=== PATIENT | female | born 1940 | race Caucasian/White ===

== ENCOUNTER → 2017-03-12 12:03 | Outpatient (CLI) | payer MEDICARE, OTHER, SELFPAY ==
[2017-02-28 09:26] VITALS: BP 134/62; BMI 39.4
--- NOTE | 2017-03-12 12:07 | RAD_ITS ---
STUDY: X-RAY CHEST REASON FOR EXAM: Female, 77 years old. Cough. TECHNIQUE: PA and lateral views of the chest. COMPARISON: August 04, 2016. FINDINGS: The lungs are underexpanded. There is interstitial thickening visible in both lungs. There is no demonstrated pleural abnormality. There is borderline cardiomegaly. There are calcified mediastinal and hilar lymph nodes. There is prominence of the pulmonary hilar arteries without peripheral pulmonary vascular congestion. There is atherosclerotic calcification of the aortic arch with tortuosity. There is demineralization of the osseous structures. There is increased thoracic kyphosis and mild curvature of the thoracic spine with convexity towards the right. Normal visualized ribs, clavicles, and shoulders. There is no demonstrated abnormality of the visualized soft tissue structures of the upper abdomen. RAD/Chest PA and Lateral IMPRESSION: No radiographic evidence of acute cardiopulmonary disease. Electronically Signed: Sun Matthews MD at 19:45 EST , Service support ,
== END ==
PROVIDERS: Family Provider Family Medicine; PCP Family Medicine; Visit Provider Family Medicine
DX: R05 Cough (principal)
CPT/HCPCS: 71046

== ENCOUNTER → 2017-04-12 11:35 | Outpatient (CLI) | payer MEDICARE, OTHER, SELFPAY ==
[2017-04-12 15:35] LABS: Absolute Lymphocyte Count 1.04 X10^3/ul (0.83-4.51); Basophil# 0.03 X10^3/uL; Basophil% 0.5 % (0-1); Eosinophils% 1.7 % (0-5); Hemoglobin 12.7 g/dl (12.0-15.0); Lymphocyte # 1.04 X10^3/ul (4.0); Lymphocyte % 17.4 % (19-41); Mean Corp Hgb Conc 31.8 g/gl (32-36); Mean Corpuscular Volume 91.3 fL (81-99); Mean Platelet Vol. 10.3 fl (6.2-12.0); Monocyte# 0.76 X10^3/uL; Monocyte% 12.8 % (0-10); Neutrophil # 4.02 X10^3/uL (2.7-7.7); Neutrophil % 67.4 % (47-70); Platelet Count 285 K/mm3 (150-450); RBC Distribution Width CV 14.7 % (11.6-14.6); Red Blood Count 4.38 M/mm3 (4.2-5.4)
[2017-04-12 15:37] LABS: POSITIVE COUNT NO; POSITIVE DIFFERENTIAL NO; POSITIVE MORPHOLOGY NO
[2017-04-12 16:06] LABS: Anion Gap 9 (5-15); BUN 18 mg/dL (7-18); BUN/Creat Ratio 23.9 RATIO (10-20); Chloride 105 mmol/L (98-107); Creatinine, Serum 0.75 mg/dL (0.55-1.02); EST Glomerular Filtration Rate 79 mL/min (>60); Est Glom Filt Rate - Afr Amer 96 mL/min (>60); Glucose 95 mg/dL (74-106); Potassium 3.9 mmol/L (3.5-5.1); Sodium Level 141 mmol/L (136-145); T4 Free Direct 1.28 ng/dL (0.76-1.46); Thyroid Stim Hormone (TSH) 1.93 uIU/mL (0.358-3.74)
== END ==
PROVIDERS: Family Provider Family Medicine; PCP Family Medicine; Visit Provider Family Medicine
DX: R53.83 Other fatigue (principal); E03.9 Hypothyroidism, unspecified; R60.9 Edema, unspecified
CPT/HCPCS: 36415; 80048; 84439; 84443; 85025

== ENCOUNTER → 2017-05-13 10:07 | Outpatient (CLI) | payer MEDICARE, OTHER, SELFPAY ==
[2017-05-13 12:10] LABS: Absolute Lymphocyte Count 1.23 X10^3/ul (0.83-4.51); Absolute Neutrophil Count 5.1 X10^3/uL (2.0-7.7); Basophil# 0.02 X10^3/uL; Basophil% 0.3 % (0-1); Eosinophils% 1.4 % (0-5); Hematocrit 39.7 % (37-47); Hemoglobin 12.5 g/dl (12.0-15.0); Lymphocyte # 1.23 X10^3/ul (4.0); Mean Corp Hgb Conc 31.5 g/gl (32-36); Mean Corpuscular Hgb 28.8 pg (27.0-32.0); Mean Corpuscular Volume 91.5 fL (81-99); Monocyte# 0.79 X10^3/uL; Monocyte% 10.9 % (0-10); Neutrophil # 5.05 X10^3/uL (2.7-7.7); Platelet Count 286 K/mm3 (150-450); RBC Distribution Width CV 14.3 % (11.6-14.6); Red Blood Count 4.34 M/mm3 (4.2-5.4); White Blood Count 7.2 K/mm3 (4.4-11.0)
[2017-05-13 12:16] LABS: POSITIVE COUNT NO; POSITIVE DIFFERENTIAL NO; POSITIVE MORPHOLOGY NO
[2017-05-13 12:36] LABS: ALB/GLOB Ratio 0.8 RATIO (0.9-2.4); AST(SGOT) 21 U/L (15-37); Alanine Aminotransfer ALT/SGPT 25 U/L (13-56); Albumin, Serum 3.1 g/dL (3.2-5.0); Alkaline Phosphatase 70 U/L (45-117); Anion Gap 8 (5-15); BUN 18 mg/dL (7-18); BUN/Creat Ratio 25.1 RATIO (10-20); Calcium,Total 7.9 mg/dL (8.5-10.1); Chloride 111 mmol/L (98-107); Creatinine, Serum 0.72 mg/dL (0.55-1.02); EST Glomerular Filtration Rate 84 mL/min (>60); Est Glom Filt Rate - Afr Amer 101 mL/min (>60); Globulin 4.1 g/dL (2.2-4.2); Glucose 97 mg/dL (74-106); Potassium 3.9 mmol/L (3.5-5.1); Protein, Total 7.2 g/dL (6.4-8.2); Sodium Level 147 mmol/L (136-145)
== END ==
PROVIDERS: Family Provider Family Medicine; PCP Family Medicine; Visit Provider Internal Medicine Rheumatology
DX: L40.59 Other psoriatic arthropathy (principal); L40.8 Other psoriasis; M79.7 Fibromyalgia; M17.0 Bilateral primary osteoarthritis of knee; M18.11 Unilateral primary osteoarthritis of first carpometacarpal joint, right hand; M47.897 Other spondylosis, lumbosacral region; M47.892 Other spondylosis, cervical region; M81.0 Age-related osteoporosis without current pathological fracture; G47.33 Obstructive sleep apnea (adult) (pediatric); Z79.899 Other long term (current) drug therapy
CPT/HCPCS: 36415; 80053; 85025

== ENCOUNTER → 2017-06-15 11:55 | Outpatient (CLI) | payer MEDICARE, OTHER, SELFPAY ==
[2017-06-15 12:00] VITALS: PULSE 60; PULSE 66; PULSE 68; PULSE 77; PULSE 95; PULSE 97; PULSE 98; PULSE 99; O2SAT 94; O2SAT 95; O2SAT 96; O2SAT 98; O2SAT 99
--- NOTE | 2017-06-17 08:19 | WT_ITS ---
PSN 6 Minute Walk Test - 6 Minute Walk Test 6 Minute Walk Test: 6 Minute Walk Test PSN:6-Minute Walk Test Start: 06/15/17 12: 20 Freq: Status: Active Protocol: [id number] Document 06/15/17 12:00 HG (Rec: 06/15/17 12:22 HG [id number]) 6 Minute Walk Test Date Performed 06/15/17 Time Performed 12:00 Height 5 ft Weight: 195 lb Weight in Pounds 195.[address]: Adamaris King Assistive device used: None Pre-test Oxygen Delivery Method Room Air Pulse Ox (%) 98 Pulse Rate (60-100 beats/min) 66 Dyspnea Jonh Scale (0-10) 1 Exertion Jonh Scale (6-20) 6 1st minute Oxygen Delivery Method Room Air Pulse Ox (%) 96 Pulse Rate (60-100 beats/min) 60 2nd minute Oxygen Delivery Method Room Air Pulse Ox (%) 95 Pulse Rate (60-100 beats/min) 98 3rd minute Oxygen Delivery Method Room Air Pulse Ox (%) 94 Pulse Rate (60-100 beats/min) 77 4th minute Oxygen Delivery Method Room Air Pulse Ox (%) 96 Pulse Rate (60-100 beats/min) 99 5th minute Oxygen Delivery Method Room Air Pulse Ox (%) 95 Pulse Rate (60-100 beats/min) 95 6th minute Oxygen Delivery Method Room Air Pulse Ox (%) 95 Pulse Rate (60-100 beats/min) 97 Post-test Oxygen Delivery Method Room Air Pulse Ox (%) 99 Pulse Rate (60-100 beats/min) 68 Dyspnea Jonh Scale (0-10) 2 Exertion Jonh Scale (6-20) 8 Full Laps Walked 15 Partial Lap, Number of Tiles Walked 0 Total Distance Walked (ft) 885 - Interpretation Interpretation: The patient ambulated 885 feet over the course of 6 minutes beginning on room air without assistive devices or breaks. Pretesting oxygen saturation was noted be 98% on room air. With ambulation, the facundo oxygen saturation was 94% . This represents a significant exertional oxygen desaturation. - Recommendations Recommendations: There is no indication for the use of supplemental oxygen at this time. However , close interval follow-up is recommended, given the degree of oxygen desaturation noted during this study.
== END ==
PROVIDERS: Family Provider Family Medicine; PCP Family Medicine; Visit Provider Nurse Practitioner Acute Care
DX: R94.2 Abnormal results of pulmonary function studies (principal)
CPT/HCPCS: 94618

== ENCOUNTER → 2017-06-25 07:33 | Outpatient (CLI) | payer MEDICARE, OTHER, SELFPAY ==
--- NOTE | 2017-06-25 14:38 | PFTCOMP ---
COMPLETE PULMONARY FUNCTION TEST INTERPRETATION Brief HPI: Patient is a 77 year old female, currently under the care of Dr. Montes, who presents to [facility] for complete pulmonary function tests secondary to diagnosis of abnormal PFT. Respiratory therapist reports good effort and reproducible results. Interpretation: Forced expiration spirometry shows no large airways obstructive ventilatory defect with an FEV1 of 116% predicted. There is no significant bronchodilator response by ATS criteria. Spirograms are of good quality and plateau normally. The respiratory flow volume loop shows a normal pattern. Lung volumes by body plethysmography show a normal total lung capacity at 3.62 L, 91% predicted. All other lung volumes are within normal limits. Diffusion capacity by carbon monoxide is normal at 78% predicted. The airway resistance is normal. Compared to previous pulmonary function tests from 02/28/2016, there has been a significant improvement in FEV1 and DLCO. Impression: These pulmonary function tests are grossly within normal limits and show normalization compared to previous study.
--- NOTE | 2017-06-25 14:41 | PFTCOMP_ITS ---
COMPLETE PULMONARY FUNCTION TEST INTERPRETATION Brief HPI: Patient is a 77 year old female, currently under the care of Dr. Montes , who presents to [facility] for complete pulmonary function tests secondary to diagnosis of abnormal PFT. Respiratory therapist reports good effort and reproducible results. Interpretation: Forced expiration spirometry shows no large airways obstructive ventilatory defect with an FEV1 of 116% predicted. There is no significant bronchodilator response by ATS criteria. Spirograms are of good quality and plateau normally. The respiratory flow volume loop shows a normal pattern. Lung volumes by body plethysmography show a normal total lung capacity at 3.62 L , 91% predicted. All other lung volumes are within normal limits. Diffusion capacity by carbon monoxide is normal at 78% predicted. The airway resistance is normal. Compared to previous pulmonary function tests from 02/28/2016, there has been a significant improvement in FEV1 and DLCO. Impression: These pulmonary function tests are grossly within normal limits and show normalization compared to previous study.
== END ==
PROVIDERS: Family Provider Family Medicine; PCP Family Medicine; Visit Provider Nurse Practitioner Acute Care
DX: R94.2 Abnormal results of pulmonary function studies (principal)
CPT/HCPCS: 94060; 94726; 94729

== ENCOUNTER → 2017-07-06 15:21 | Outpatient (CLI) | payer MEDICARE, OTHER, SELFPAY ==
--- NOTE | 2017-07-06 15:25 | VDLE_ITS ---
Reason For Study: edema RIGHT GSV is normal. CFV is compressible, spontaneous, phasic, competent and demonstrates normal augmentation. FV is compressible, spontaneous, phasic, competent and demonstrates normal augmentation. POP V is compressible, spontaneous, phasic, competent and demonstrates normal augmentation. T/P Trunk is compressible. PTV is compressible. RT PerV is compressible. Interpretation Summary Deep veins of the right lower extremity are patent and compressible segmentally. There is no evidence of right lower extremity deep vein thrombosis. Valvular competence appears intact within the proximal deep venous system on the right . The right greater saphenous vein appears patent and compressible segmentally. Ordering Physician: Jarred Portillo Performed By: Rayshawn Prater RVT
== END ==
PROVIDERS: Family Provider Family Medicine; PCP Family Medicine; Visit Provider Family Medicine
DX: R60.0 Localized edema (principal)
CPT/HCPCS: 93971

== ENCOUNTER → 2017-08-02 09:47 | Outpatient (CLI) | payer MEDICARE, OTHER, SELFPAY ==
[2017-08-02 12:07] LABS: Absolute Lymphocyte Count 1.36 X10^3/ul (0.83-4.51); Absolute Neutrophil Count 3.5 X10^3/uL (2.0-7.7); Basophil# 0.02 X10^3/uL; Basophil% 0.3 % (0-1); Eosinophil# 0.11 X10^3/uL; Eosinophils% 1.9 % (0-5); Hematocrit 41.3 % (37-47); Hemoglobin 12.8 g/dl (12.0-15.0); Lymphocyte # 1.36 X10^3/ul (4.0); Lymphocyte % 23.4 % (19-41); Mean Corpuscular Hgb 27.6 pg (27.0-32.0); Mean Corpuscular Volume 89.2 fL (81-99); Mean Platelet Vol. 9.7 fl (6.2-12.0); Monocyte# 0.81 X10^3/uL; Monocyte% 13.9 % (0-10); Neutrophil % 60.3 % (47-70); Platelet Count 289 K/mm3 (150-450); RBC Distribution Width CV 13.7 % (11.6-14.6); RBC Distribution Width SD 44.8 fl (35.1-43.9); Red Blood Count 4.63 M/mm3 (4.2-5.4); White Blood Count 5.8 K/mm3 (4.4-11.0)
[2017-08-02 12:13] LABS: POSITIVE COUNT NO; POSITIVE DIFFERENTIAL NO; POSITIVE MORPHOLOGY NO
[2017-08-02 12:36] LABS: ALB/GLOB Ratio 0.9 RATIO (0.9-2.4); AST(SGOT) 22 U/L (15-37); Alanine Aminotransfer ALT/SGPT 27 U/L (13-56); Albumin, Serum 3.3 g/dL (3.2-5.0); Alkaline Phosphatase 68 U/L (45-117); Anion Gap 8 (5-15); BUN 19 mg/dL (7-18); Calcium,Total 8.4 mg/dL (8.5-10.1); Chloride 108 mmol/L (98-107); Creatinine, Serum 0.76 mg/dL (0.55-1.02); EST Glomerular Filtration Rate 78 mL/min (>60); Est Glom Filt Rate - Afr Amer 95 mL/min (>60); Globulin 3.8 g/dL (2.2-4.2); Glucose 95 mg/dL (74-106); Potassium 4.1 mmol/L (3.5-5.1); Protein, Total 7.1 g/dL (6.4-8.2); Sodium Level 143 mmol/L (136-145)
== END ==
PROVIDERS: Family Provider Family Medicine; PCP Family Medicine; Visit Provider Internal Medicine Rheumatology
DX: L40.59 Other psoriatic arthropathy (principal); Z79.899 Other long term (current) drug therapy; L40.8 Other psoriasis; M79.7 Fibromyalgia; M17.0 Bilateral primary osteoarthritis of knee; M18.11 Unilateral primary osteoarthritis of first carpometacarpal joint, right hand; M47.897 Other spondylosis, lumbosacral region; M47.892 Other spondylosis, cervical region; M81.0 Age-related osteoporosis without current pathological fracture; G47.33 Obstructive sleep apnea (adult) (pediatric)
CPT/HCPCS: 36415; 80053; 85025

== ENCOUNTER → 2018-03-18 11:42 | Outpatient (CLI) | payer MEDICARE, OTHER, SELFPAY ==
[2018-03-16 09:46] VITALS: BMI 37.3
--- NOTE | 2018-03-18 11:47 | BI_ITS ---
MAMMOGRAPHY - BILATERAL SCREENING REASON FOR EXAM: Female, 78 years old. Routine annual screening examination. PERTINENT HISTORY: Non-contributory. Remote right excisional breast biopsy. TECHNIQUE: Digital bilateral breast emily (3D mammographic acquisition) in the CC and MLO projections. 2-D mediolateral oblique (MLO) and craniocaudad (CC) views of both breasts were obtained. CAD: Full Field Digital Mammography with Computer Added Detection was performed. COMPARISON: Comparison is made with prior study dated December 24, 2016 and November 11, 2015. FINDINGS: Breast Composition: There are scattered areas of fibroglandular density. There are no dominant masses or suspicious calcifications. Once again, there is asymmetry of breast tissue with more breast tissue is seen in the retroareolar region of the right breast as compared to the left side. No other significant abnormalities are identified. There has been no significant change since the prior study. BI/SCREENING MAMM (CAD), BILAT IMPRESSION: Stable bilateral screening mammogram. Yearly follow-up mammogram recommended. (A) ASSESSMENT CATEGORY: BIRADS Category 2: Benign. A letter regarding these results will be sent to the patient by the facility within 30 days. Approximately 10% of breast cancers are not detected by mammography. A normal mammogram should not delay biopsy of a clinically suspicious abnormality. [id number] Electronically Signed: Charly Booker MD at 14:26 EST , Service support ,
== END ==
PROVIDERS: Family Provider Family Medicine; PCP Family Medicine; Referring Provider Family Medicine; Visit Provider Family Medicine
DX: Z12.31 Encounter for screening mammogram for malignant neoplasm of breast (principal)
CPT/HCPCS: 77063; 77067

== ENCOUNTER → 2018-06-01 | Outpatient (CLI) | payer MEDICARE, OTHER, SELFPAY ==
[2018-03-16 09:46] VITALS: BMI 37.3
[2018-06-01 12:35] LABS: Absolute Lymphocyte Count 0.96 X10^3/ul (0.83-4.51); Absolute Neutrophil Count 3.3 X10^3/uL (2.0-7.7); Basophil# 0.02 X10^3/uL; Basophil% 0.4 % (0-1); Eosinophil# 0.07 X10^3/uL; Eosinophils% 1.4 % (0-5); Hematocrit 41.2 % (37-47); Hemoglobin 13.2 g/dl (12.0-15.0); Lymphocyte # 0.96 X10^3/ul (4.0); Lymphocyte % 19.4 % (19-41); Mean Corpuscular Hgb 28.5 pg (27.0-32.0); Mean Platelet Vol. 9.9 fl (6.2-12.0); Monocyte# 0.57 X10^3/uL; Monocyte% 11.5 % (0-10); Neutrophil # 3.33 X10^3/uL (2.7-7.7); Neutrophil % 67.1 % (47-70); Platelet Count 284 K/mm3 (150-450); RBC Distribution Width CV 13.7 % (11.6-14.6); RBC Distribution Width SD 44.5 fl (35.1-43.9); Red Blood Count 4.63 M/mm3 (4.2-5.4)
[2018-06-01 12:36] LABS: POSITIVE COUNT NO; POSITIVE DIFFERENTIAL NO; POSITIVE MORPHOLOGY NO
[2018-06-01 12:42] LABS: ALB/GLOB Ratio 0.9 RATIO (0.9-2.4); AST(SGOT) 23 U/L (15-37); Alanine Aminotransfer ALT/SGPT 26 U/L (13-56); Albumin, Serum 3.3 g/dL (3.2-5.0); Alkaline Phosphatase 60 U/L (45-117); Anion Gap 6 (5-15); BUN 19 mg/dL (7-18); Calcium,Total 8.5 mg/dL (8.5-10.1); Chloride 109 mmol/L (98-107); Cholesterol 187 mg/dL (200); Creatinine, Serum 0.86 mg/dL (0.55-1.02); EST Glomerular Filtration Rate 68 mL/min (>60); Est Glom Filt Rate - Afr Amer 82 mL/min (>60); Globulin 3.6 g/dL (2.2-4.2); Glucose 92 mg/dL (74-106); High Density Lipoprotein 73 mg/dL; Protein, Total 6.9 g/dL (6.4-8.2); Sodium Level 143 mmol/L (136-145); Thyroid Stim Hormone (TSH) 2.28 uIU/mL (0.358-3.74); Triglycerides 75 mg/dL; Very Low Density Lipoprotein 15 mg/dL (5-40)
== END | disposition home or self-care (01) ==
LOC: BFHLAB 10:14
PROVIDERS: Family Provider Family Medicine; PCP Family Medicine; Visit Provider Internal Medicine Cardiovascular Disease
DX: I10 Essential (primary) hypertension (principal); E55.9 Vitamin D deficiency, unspecified; E03.9 Hypothyroidism, unspecified
CPT/HCPCS: 36415; 80053; 80061; 82306; 84443; 85025

== ENCOUNTER → 2018-12-07 10:22 | Outpatient (CLI) | payer MEDICARE, OTHER, SELFPAY ==
[2018-09-14 09:30] VITALS: BMI 38.8
[2018-10-31 10:29] VITALS: BMI 37.9
[2018-12-07 12:31] LABS: Absolute Lymphocyte Count 1.11 X10^3/uL (0.83-4.51); Absolute Neutrophil Count 4.1 X10^3/uL (2.0-7.7); Basophil# 0.04 X10^3/uL; Basophil% 0.7 % (0-1); Eosinophil# 0.13 X10^3/uL; Eosinophils% 2.1 % (0-5); Hematocrit 41.2 % (37-47); Hemoglobin 12.9 g/dL (12.0-15.0); Lymphocyte # 1.11 X10^3/ul (4.0); Mean Corp Hgb Conc 31.3 g/dL (32-36); Mean Corpuscular Hgb 28.7 pg (27.0-32.0); Mean Corpuscular Volume 91.8 fL (81-99); Mean Platelet Vol. 10.2 fl (6.2-12.0); Monocyte# 0.71 X10^3/uL; Monocyte% 11.5 % (0-10); NRBC Flagged by Analyzer 0 % (0-5); Neutrophil # 4.14 X10^3/uL (2.7-7.7); Neutrophil % 67.4 % (47-70); Platelet Count 273 K/mm3 (150-450); RBC Distribution Width CV 13.1 % (11.6-14.6); RBC Distribution Width SD 44.4 fl (35.1-43.9); Red Blood Count 4.49 M/mm3 (4.2-5.4); White Blood Count 6.2 K/mm3 (4.4-11.0)
[2018-12-07 12:32] LABS: Erythrocyte Sedimentation Rate 10 mm/hr (0-30)
[2018-12-07 12:48] LABS: Vitamin D,25 Hydroxy 36.8 ng/mL (29.95-100.01)
[2018-12-07 13:10] LABS: ALB/GLOB Ratio 0.9 RATIO (0.9-2.4); AST(SGOT) 17 U/L (15-37); Alanine Aminotransfer ALT/SGPT 25 U/L (13-56); Albumin, Serum 3.4 g/dL (3.2-5.0); Alkaline Phosphatase 57 U/L (45-117); Anion Gap 6 (5-15); BUN 23 mg/dL (7-18); BUN/Creat Ratio 29.3 RATIO (10-20); CRP < 2.90 mg/L (0.0-3.0); Calcium,Total 8.6 mg/dL (8.5-10.1); Chloride 108 mmol/L (98-107); Creatinine, Serum 0.78 mg/dL (0.55-1.02); EST Glomerular Filtration Rate 75 mL/min (>60); Est Glom Filt Rate - Afr Amer 91 mL/min (>60); Globulin 3.7 g/dL (2.2-4.2); Glucose 93 mg/dL (74-106); Potassium 3.7 mmol/L (3.5-5.1); Protein, Total 7.1 g/dL (6.4-8.2); Rheumatoid Factor < 10.0 IU/mL (<15); Sodium Level 143 mmol/L (136-145); Thyroid Stim Hormone (TSH) 2.64 uIU/mL (0.358-3.74)
[2018-12-08 21:30] LABS: ANTINUCLEAR ANTIBODIES DIRECT Negative (Negative)
[2018-12-09 12:28] LABS: CCP IgG Antibodies 8 units (0-19)
== END ==
PROVIDERS: Family Provider Family Medicine; PCP Family Medicine; Visit Provider Family Medicine
DX: E55.9 Vitamin D deficiency, unspecified (principal); E03.9 Hypothyroidism, unspecified; M06.4 Inflammatory polyarthropathy
CPT/HCPCS: 36415; 80053; 82306; 84439; 84443; 85025; 85652; 86038; 86140; 86200; 86225; 86235; 86431

== ENCOUNTER → 2018-12-15 | Outpatient (CLI) | payer MEDICARE, OTHER, SELFPAY ==
[2018-10-31 10:29] VITALS: BMI 37.9
--- NOTE | 2018-12-15 10:44 | BD_ITS ---
STUDY: DUAL ENERGY X-RAY ABSORPTIOMETRY / DXA REASON FOR EXAM: Female, 78 years old. The patient is postmenopausal. Loss of height. TECHNIQUE: Bone Mineral Density (BMD) measurements of lumbar spine and bilateral hips were obtained. COMPARISON: Comparison is made with prior study dated November 11, 2015. FINDINGS: Lumbar Spine (L1-L4): g/cm2 (0.934) / T-score (-2.0) / Z-score (-0.2) Findings are suggestive of osteopenia with a moderate fracture risk. Left Femur Total: g/cm2 (0.756) / T-score (-2.0) / Z-score (-0.1) Left Femoral Neck: g/cm2 (0.726) / T-score (-2.2) / Z-score (-0.1) Right Femur Total: g/cm2 (0.818) / T-score (-1.5) / Z-score (0.4) Right Femoral Neck: g/cm2 (0.826) / T-score (-1.5) / Z-score (0.6) The T-Scores on the most recent prior examination were: Lumbar Spine (L1-L4): There has been worsening of bone density since the previous examination. Left Femur Total: which represents a worsening of 18.1%. Right Femur Total: which represents an improvement of 42%. BD/Dexa Bone Density Study IMPRESSION: The patient is considered osteopenic as outlined below according to World Pito Organization (WHO) criteria with a moderate fracture risk. There has been improvement of bone density since the previous examination. Reference Information: The T-score is the number of standard deviations above or below the standard which is normal for young adults at their peak bone mineral density. The World Health Organization (WHO) interprets the T-scores as follows: Above -1 Normal bone density Between -1 and -2.5 Osteopenia Equal to / or below -2.5 Osteoporosis As a practical clinical guideline, osteopenia may be graded as follows: Mild -1 through -1.5 Moderate -1.6 through -2.0 Severe -2.1 through -2.4 The Z-score is the number of standard deviations above or below age-matched controls. A Z-score of less than -1.5 would be considered abnormal. References: 1. NIH Osteoporosis and Related Bone Diseases http://www.osteo.org 2. International Society for Clinical Densitometry http://www.iscd.org 3. National Osteoporosis Foundation http://www.nof.org Electronically Signed: Charly Booker, at 15:39 EST , Service support ,
== END | disposition home or self-care (01) ==
LOC: OPBD 10:38
PROVIDERS: Family Provider Family Medicine; PCP Family Medicine; Referring Provider Family Medicine; Visit Provider Family Medicine
DX: M81.0 Age-related osteoporosis without current pathological fracture (principal)
CPT/HCPCS: 77080

== ENCOUNTER → 2019-01-01 15:43 | Outpatient (CLI) | payer MEDICARE, OTHER, SELFPAY ==
[2019-01-01 12:21] VITALS: BMI 37.9
[2019-01-01 16:05] LABS: Bacteria 0 SEEN /hpf (None Seen); Color, Urine Yellow (Yellow); Glucose, Dipstick Normal (Normal); Ketone-Dipstick Negative (Negative); Leukocyte Esterase-Dipstick 500 /ul (Negative); Mucous, Urine 0 SEEN /hpf (<or=2+); Nitrite-Dipstick Negative (Negative); Occult Blood-Urine 25 /ul (Negative); Protein-Dipstick Negative (Negative); Specific Gravity, Urine 1.005 (1.002-1.030); Urine Bilirubin Dipstick Negative (Negative); Urine Clarity Sl. Cloudy (Clear); Urine Urobilinogen Normal (Normal)
[2019-01-01 16:23] LABS: Red Blood Cells-Urine 0-5 SEEN /hpf (0-5); Squamous Epithelial Cells - UA 0-5 SEEN /hpf (5-10)
[2019-01-01 16:24] LABS: White Blood Cells 10-25 SEEN /hpf (0-5)
== END ==
LOC: BMS.EMR 15:43 → LABSPEC 01-02 15:07
PROVIDERS: Family Provider Family Medicine; PCP Family Medicine; Visit Provider Physician Assistant Medical
DX: R30.0 Dysuria (principal)
CPT/HCPCS: 81001; 87086

== ENCOUNTER → 2019-04-19 | Outpatient (CLI) | payer MEDICARE, OTHER, SELFPAY ==
[2019-03-13 07:46] VITALS: BMI 38.0
--- NOTE | 2019-04-19 12:41 | BI_ITS ---
MAMMOGRAPHY - BILATERAL SCREENING REASON FOR EXAM: Female, 79 years old. Routine annual screening examination. PERTINENT HISTORY: Non-contributory. TECHNIQUE: Digital bilateral breast ivan (3D mammographic acquisition) in the CC and MLO projections. 2-D mediolateral oblique (MLO) and craniocaudad (CC) views of both breasts were obtained. CAD: Full Field Digital Mammography with Computer Added Detection was performed. COMPARISON: Comparison is made with prior examination dated March 2018 and December 24, 2016. FINDINGS: Breast Composition: The breasts are heterogeneously dense, which may obscure small masses. There are no dominant masses or suspicious calcifications. No other significant abnormalities are identified. There has been no significant change since the prior study. BI/SCREEN MAMM (CAD) W/IVAN BILAT IMPRESSION: Stable bilateral screening mammogram. Yearly follow-up mammogram recommended. (A) ASSESSMENT CATEGORY: BIRADS Category 1: Negative. A letter regarding these results will be sent to the patient by the facility within 30 days. Approximately 10% of breast cancers are not detected by mammography. A normal mammogram should not delay biopsy of a clinically suspicious abnormality. [id number] Electronically Signed: Charly Booker, at 13:53 EDT , Service support ,
== END | disposition home or self-care (01) ==
LOC: OPBI 12:39
PROVIDERS: PCP Family Medicine; Referring Provider Family Medicine; Visit Provider Family Medicine
DX: Z12.31 Encounter for screening mammogram for malignant neoplasm of breast (principal)
CPT/HCPCS: 77063; 77067

== ENCOUNTER → 2019-10-27 | Outpatient (CLI) | payer MEDICARE, OTHER, SELFPAY ==
[2019-09-12 06:45] VITALS: BMI 38.0
[2019-10-27 10:43] LABS: AST(SGOT) 15 U/L (15-37); Alanine Aminotransfer ALT/SGPT 25 U/L (13-56); Albumin, Serum 3.5 g/dL (3.2-5.0); Alkaline Phosphatase 63 U/L (45-117); Cholesterol 188 mg/dL (200); Globulin 3.7 g/dL (2.2-4.2); High Density Lipoprotein 61 mg/dL; Protein, Total 7.2 g/dL (6.4-8.2); Triglycerides 71 mg/dL; Very Low Density Lipoprotein 14 mg/dL (5-40)
== END | disposition home or self-care (01) ==
LOC: MTLAB 08:54
PROVIDERS: PCP Family Medicine; Referring Provider Internal Medicine Cardiovascular Disease; Visit Provider Internal Medicine Cardiovascular Disease
DX: E78.00 Pure hypercholesterolemia, unspecified (principal)
CPT/HCPCS: 36415; 80061; 80076

== ENCOUNTER → 2019-11-14 | Outpatient (CLI) | payer MEDICARE, OTHER, SELFPAY ==
[2019-10-30 11:06] VITALS: BMI 36.1
--- NOTE | 2019-11-14 12:52 | CDU_ITS ---
Reason For Study: carotid stenosis Rt. Velocities/BP Lt. Velocities/BP Prox CCA 113.8/13.3 cm/sec. Prox CCA 108.3/7.9 cm/sec. Mid CCA 66.7/9.0 cm/sec. Mid CCA 75.4/11.5 cm/sec. Dist CCA 58.1/13.9 cm/sec. Dist CCA 70.0/18.8 cm/sec. Prox ICA 41.9/8.8 cm/sec. Prox ICA 121.1/22.5 cm/sec. Mid ICA 64.5/15.4 cm/sec. Mid ICA 91.9/22.5 cm/sec. Dist ICA 64.5/12.6 cm/sec. Dist ICA 57.5/17.9 cm/sec. Rt. ICA/CCA = 1.0. Lt. ICA/CCA = 1.6. Prox ECA 118.3/7.7 cm/sec. Prox ECA 121.1/12.4 cm/sec. Rt. Vert. 42.8/10.7 cm/sec. Lt. Vert. 35.5/8.0 cm/sec. Right Extracranial There is intimal thickening but no significant atherosclerotic plaque noted in the right common carotid artery. There is intimal thickening but no significant atherosclerotic plaque noted in the right internal carotid artery. There is intimal thickening but no significant atherosclerotic plaque noted in the right external carotid artery. Antegrade flow is noted in the right vertebral artery. There is heterogeneous, irregular atherosclerotic plaque noted in the right bulb. Left Extracranial There is intimal thickening but no significant atherosclerotic plaque noted in the left common carotid artery. There is intimal thickening but no significant atherosclerotic plaque noted in the left internal carotid artery. There is heterogeneous, irregular atherosclerotic plaque noted in the left external carotid artery. Antegrade flow is noted in the left vertebral artery. There is heterogeneous, irregular atherosclerotic plaque noted in the left bulb. Procedure Carotid Duplex [id number]. This is a Carotid Duplex examination using B-mode, color flow and specral Doppler. The exam was diagnostic. Exam performed in department. Interpretation Summary Mild (<50%) stenosis right extracranial internal carotid. Moderate (50-69%) stenosis left extracranial internal carotid. Flow within the vertebral arteries is antegrade bilaterally. Ordering Physician: Maxx Stephens Performed By: Lance Prater RVT and Student
== END | disposition home or self-care (01) ==
PROVIDERS: PCP Family Medicine; Referring Provider Internal Medicine Cardiovascular Disease; Visit Provider Internal Medicine Cardiovascular Disease
DX: R09.89 Other specified symptoms and signs involving the circulatory and respiratory systems (principal)
CPT/HCPCS: 93880

== ENCOUNTER → 2019-12-11 09:54 | Outpatient (CLI) | payer MEDICARE, OTHER, SELFPAY ==
[2019-10-30 11:06] VITALS: BMI 36.1
[2019-12-11 12:45] LABS: Absolute Lymphocyte Count 1.02 X10^3/uL (0.83-4.51); Absolute Neutrophil Count 4.6 X10^3/uL (2.0-7.7); Basophil# 0.04 X10^3/uL; Basophil% 0.6 % (0-1); Eosinophils% 1.5 % (0-5); Hematocrit 40.8 % (37-47); Hemoglobin 12.7 g/dL (12.0-15.0); Lymphocyte # 1.02 X10^3/ul (4.0); Lymphocyte % 15.8 % (19-41); Mean Corp Hgb Conc 31.1 g/dL (32-36); Mean Corpuscular Hgb 28.7 pg (27.0-32.0); Mean Corpuscular Volume 92.3 fL (81-99); Mean Platelet Vol. 10.4 fl (6.2-12.0); Monocyte# 0.65 X10^3/uL; NRBC Flagged by Analyzer 0 % (0-5); Neutrophil # 4.63 X10^3/uL (2.7-7.7); Neutrophil % 71.6 % (47-70); Platelet Count 278 K/mm3 (150-450); RBC Distribution Width CV 13.3 % (11.6-14.6); RBC Distribution Width SD 45.3 fl (35.1-43.9); Red Blood Count 4.42 M/mm3 (4.2-5.4); White Blood Count 6.5 K/mm3 (4.4-11.0)
[2019-12-11 12:51] LABS: ALB/GLOB Ratio 0.8 RATIO (0.9-2.4); AST(SGOT) 20 U/L (15-37); Alanine Aminotransfer ALT/SGPT 26 U/L (13-56); Albumin, Serum 3.1 g/dL (3.2-5.0); Alkaline Phosphatase 66 U/L (45-117); Anion Gap 6 (5-15); BUN 17 mg/dL (7-18); BUN/Creat Ratio 21.6 RATIO (10-20); Calcium,Total 8.8 mg/dL (8.5-10.1); Chloride 110 mmol/L (98-107); Cholesterol 122 mg/dL (200); Creatinine, Serum 0.79 mg/dL (0.55-1.02); EST Glomerular Filtration Rate 75 mL/min (>60); Est Glom Filt Rate - Afr Amer 91 mL/min (>60); Globulin 3.7 g/dL (2.2-4.2); Glucose 96 mg/dL (74-106); High Density Lipoprotein 67 mg/dL; Potassium 3.8 mmol/L (3.5-5.1); Protein, Total 6.8 g/dL (6.4-8.2); Sodium Level 144 mmol/L (136-145); Thyroid Stim Hormone (TSH) 1.35 uIU/mL (0.358-3.74); Triglycerides 71 mg/dL; Very Low Density Lipoprotein 14 mg/dL (5-40)
[2019-12-11 13:28] LABS: Vitamin D,25 Hydroxy 37.4 ng/mL
== END ==
PROVIDERS: Internal Medicine Cardiovascular Disease; PCP Family Medicine; Visit Provider Family Medicine
DX: I10 Essential (primary) hypertension (principal); E03.9 Hypothyroidism, unspecified; E55.9 Vitamin D deficiency, unspecified; R60.9 Edema, unspecified; E78.5 Hyperlipidemia, unspecified
CPT/HCPCS: 36415; 80053; 80061; 82306; 84443; 85025

== ENCOUNTER → 2020-05-23 12:10 | Outpatient (CLI) | payer MEDICARE, OTHER, SELFPAY ==
[2019-10-30 11:06] VITALS: BMI 36.1
--- NOTE | 2020-05-23 12:12 | BI_ITS ---
MAMMOGRAPHY - BILATERAL SCREENING REASON FOR EXAM: Female, 80 years old. Routine annual screening examination. PERTINENT HISTORY: Non-contributory. Remote right excisional breast biopsy. TECHNIQUE: Digital bilateral breast ivan (3D mammographic acquisition) in the CC and MLO projections. 2-D mediolateral oblique (MLO) and craniocaudad (CC) views of both breasts were obtained. CAD: Full Field Digital Mammography with Computer Added Detection was performed. COMPARISON: Comparison is made with prior examination 04/19/2019 and 03/18/2018. FINDINGS: Breast Composition: The breasts are heterogeneously dense, which may obscure small masses. There are no dominant masses or suspicious calcifications. No other significant abnormalities are identified. There has been no significant change since the prior study. BI/SCRN MAMM (CAD)W/IVAN BILAT IMPRESSION: Stable bilateral screening mammogram. Yearly follow-up mammogram recommended. (A) ASSESSMENT CATEGORY: BIRADS Category 1: Negative. A letter regarding these results will be sent to the patient by the facility within 30 days. Approximately 10% of breast cancers are not detected by mammography. A normal mammogram should not delay biopsy of a clinically suspicious abnormality. [id number] Electronically Signed: Charly Booker MD at 13:18 EDT , Service support ,
== END ==
PROVIDERS: PCP Family Medicine; Referring Provider Family Medicine; Visit Provider Family Medicine
DX: Z12.31 Encounter for screening mammogram for malignant neoplasm of breast (principal)
CPT/HCPCS: 77063; 77067

== ENCOUNTER → 2020-06-11 10:36 | Outpatient (CLI) | payer MEDICARE, OTHER, SELFPAY ==
[2019-10-30 11:06] VITALS: BMI 36.1
[2020-06-11 12:34] LABS: Cholesterol 135 mg/dL (200); High Density Lipoprotein 79 mg/dL; Triglycerides 75 mg/dL; Very Low Density Lipoprotein 15 mg/dL (5-40)
[2020-06-11 12:40] LABS: ALB/GLOB Ratio 0.9 RATIO (0.9-2.4); AST(SGOT) 43 U/L (15-37); Alanine Aminotransfer ALT/SGPT 35 U/L (13-56); Albumin, Serum 3.4 g/dL (3.2-5.0); Alkaline Phosphatase 77 U/L (45-117); Anion Gap 6 (5-15); BUN 22 mg/dL (7-18); BUN/Creat Ratio 27.1 RATIO (10-20); Bilirubin, Direct 0.28 mg/dL (0.00-0.30); CPK Total, Creatine Kinase 583 U/L (26-192); Calcium,Total 9.1 mg/dL (8.5-10.1); Chloride 107 mmol/L (98-107); Creatinine, Serum 0.81 mg/dL (0.55-1.02); EST Glomerular Filtration Rate 72 mL/min (>60); Est Glom Filt Rate - Afr Amer 87 mL/min (>60); Globulin 3.7 g/dL (2.2-4.2); Glucose 104 mg/dL (74-106); Potassium 3.6 mmol/L (3.5-5.1); Protein, Total 7.1 g/dL (6.4-8.2); Sodium Level 141 mmol/L (136-145)
[2020-06-11 12:45] LABS: Vitamin D,25 Hydroxy 45.7 ng/mL
== END ==
PROVIDERS: Internal Medicine Cardiovascular Disease; PCP Family Medicine; Referring Provider Family Medicine; Visit Provider Family Medicine
DX: E55.9 Vitamin D deficiency, unspecified (principal); E66.9 Obesity, unspecified; I10 Essential (primary) hypertension; M79.10 Myalgia, unspecified site; E78.00 Pure hypercholesterolemia, unspecified; E03.9 Hypothyroidism, unspecified
CPT/HCPCS: 36415; 80053; 80061; 82248; 82306; 82550; 84443; 86769

== ENCOUNTER → 2020-06-12 10:55 | Outpatient (CLI) | payer MEDICARE, OTHER, SELFPAY ==
[2019-10-30 11:06] VITALS: BMI 36.1
[2020-06-12 12:39] LABS: Absolute Lymphocyte Count 1.39 X10^3/uL (0.83-4.51); Absolute Neutrophil Count 5.2 X10^3/uL (2.0-7.7); Basophil# 0.03 X10^3/uL; Basophil% 0.4 % (0-1); Eosinophil# 0.09 X10^3/uL; Eosinophils% 1.2 % (0-5); Hematocrit 41.9 % (37-47); Hemoglobin 12.9 g/dL (12.0-15.0); Lymphocyte # 1.39 X10^3/ul (0.83-4.51); Lymphocyte % 18.4 % (19-41); Mean Corp Hgb Conc 30.8 g/dL (32-36); Mean Corpuscular Hgb 27.8 pg (27.0-32.0); Mean Corpuscular Volume 90.3 fL (81-99); Mean Platelet Vol. 10.1 fl (6.2-12.0); Monocyte# 0.82 X10^3/uL; Monocyte% 10.9 % (0-10); NRBC Flagged by Analyzer 0 % (0-5); Neutrophil # 5.19 X10^3/uL (2.7-7.7); Neutrophil % 68.7 % (47-70); Platelet Count 294 K/mm3 (150-450); RBC Distribution Width CV 13.4 % (11.6-14.6); RBC Distribution Width SD 44.3 fl (35.1-43.9); Red Blood Count 4.64 M/mm3 (4.2-5.4); White Blood Count 7.6 K/mm3 (4.4-11.0)
== END ==
PROVIDERS: PCP Family Medicine; Referring Provider Family Medicine; Visit Provider Family Medicine
DX: E03.9 Hypothyroidism, unspecified (principal); M79.10 Myalgia, unspecified site; E55.9 Vitamin D deficiency, unspecified; E66.9 Obesity, unspecified; I10 Essential (primary) hypertension
CPT/HCPCS: 85025

== ENCOUNTER → 2020-07-05 08:11 | Outpatient (CLI) | payer MEDICARE, OTHER, SELFPAY ==
[2019-10-30 11:06] VITALS: BMI 36.1
[2020-07-05 11:01] LABS: CPK Total, Creatine Kinase 84 U/L (26-192)
== END ==
PROVIDERS: PCP Family Medicine; Referring Provider Family Medicine; Visit Provider Family Medicine
DX: G72.9 Myopathy, unspecified (principal)
CPT/HCPCS: 36415; 82550

== ENCOUNTER → 2020-10-13 09:21 | Outpatient (CLI) | payer MEDICARE, OTHER, SELFPAY ==
[2020-10-13 16:37] LABS: Mucous, Urine 0 SEEN /hpf (<or=2+)
[2020-10-13 17:07] LABS: Color, Urine Yellow (Yellow); Glucose, Dipstick Normal (Normal); Ketone-Dipstick Negative (Negative); Leukocyte Esterase-Dipstick 500 /ul (Negative); Nitrite-Dipstick Negative (Negative); Occult Blood-Urine 25 /ul (Negative); Protein-Dipstick Negative (Negative); Specific Gravity, Urine 1.005 (1.002-1.030); Urine Bilirubin Dipstick Negative (Negative); Urine Clarity Clear (Clear); Urine Urobilinogen Normal (Normal)
[2020-10-13 17:14] LABS: Bacteria 1+ /hpf (None Seen); Red Blood Cells-Urine 0-5 SEEN /hpf (0-5); Squamous Epithelial Cells - UA 0-5 SEEN /hpf (5-10); White Blood Cells 10-25 SEEN /hpf (0-5)
== END ==
PROVIDERS: PCP Family Medicine; Visit Provider Nurse Practitioner Family
DX: N39.0 Urinary tract infection, site not specified (principal)
CPT/HCPCS: 81001; 87086; 87088

== ENCOUNTER 2020-10-28 15:30 | Outpatient (RCR) | payer MEDICARE, OTHER, SELFPAY ==
[2019-10-30 11:06] VITALS: BMI 36.1
--- NOTE | 2020-10-02 12:47 | HP.PTEVAL ---
Patient's Visit Information FERNANDO REYNOSO is a 80 year old F referred to Physical Therapy by Dr. Juan Adams DO with a diagnosis of OA R knee. Date of Evaluation: 10/02/20 Physical Therapist: CLEMENTE Saunders - Visit Plan Frequency: 2x /Week Duration: 6 Weeks Plan: 2X/ week for 6 weeks for R knee and hip strengthening, gait training, functional activities, stairs with HEP. HEP: Bridges, SLR, LAQ - Subjective PT had her L TKR approx 2013 and is trying to prevent having her R TKR. Her R knee started to bother her off and on and has had the gel injections at least twice and will have them again starting this Wednesday. It hurts her to bend her R knee back to far. She leads down the stairs with her R knee first. stairs: recip with a railing. Her knee feels like it slips out and is hoping that strengthening will help with that. Sit to stand: able to get out of a chair without the use of her arms. Pt has increase LB pain when she walks and she has scoliosis as well. Sitting still she has more stiffness. Walking also causes some stiffness and weakness and instability like it will give out on her. She feels she might have restless leg syndrome as sometimes it will slip out when she is sleeping. - Pain R knee pain Pain Intensity (Out of 10): 0 - Objective Gait: Walks with shorter stride and slightly decrease stance time on the R LE. PT struggles with heel and toe raises with UE support. Palpation: tender along the medial and lateral joint line on the L. LE MMT: B hip flex 4/5, R knee ext 4-/5 and L knee ext 4/5, R hip abd 4-/5 and L 4/5, R knee flex 4-/5 and L 4/5. Bridge: able to do 1/2 normal ROM bridge. R knee AROM:-5 to 110. L knee AROM: 0- 120. Sit to stand: is able to get out of a chair without the use of her UE's. - Goals Goal 1:: I HEP Goal Time Frame: 4-6 Weeks Goal 2:: Increase R knee AROM -3 degrees to 115 degrees R knee flexion Goal Time Frame: 4-6 Weeks Goal 3:: Increase R LE strength by 1/2 muscle grade (at time of eval: LE MMT: B hip flex 4/5, R knee ext 4-/5 and L knee ext 4/5, R hip abd 4-/5 and L 4/5, R knee flex 4-/5 and L 4/5, able to do 1/2 normal ROM bridge). Goal Time Frame: 4-6 Weeks Goal 4:: Be able to go up and down the stair recip with B hand rails Goal Time Frame: 4-6 Weeks - Rehabilitation Potential Rehabilitation Potential: Good - Anticipated Interventions Patient/Client Instruction: Educate patient on: Condition, Plan of Care For the Purpose of:: To decrease pain, To increase ROM, To improve nutrient delivery to tissue, To improve muscle performance and motor function, To improve ability to perform ADL's, To increase tolerance to activity/condition/position, To improve performance and independence with ADL's, To improve gait and locomotor functions, To improve health of tissue, To decrease soft tissue restriction, To increase flexibility/ROM, To improve safety with gait Therapeutic Exercise to Include: Strength training, Balance training, Postural training, Flexibilty training, Gait and locomotor training, Neuromotor development, Passive ROM, Active ROM For the Purpose of:: To decrease pain, To increase ROM, To improve nutrient delivery to tissue, To improve ability to perform ADL's, To increase tolerance to activity/condition/position, To improve ability of physical actions for home/community/work/leisure, To improve gait and locomotor functions, To improve health of tissue, To decrease soft tissue restriction, To increase flexibility/ROM Functional Training to Include: Gait training For the Purpose of:: To improve gait and locomotor functions Manual Therapy Techniques to Include: Mobilization, Passive ROM, Soft tissue mobilization For the Purpose of:: To decrease pain, To decrease swelling/inflammation, To increase ROM, To improve nutrient delivery to tissue Thank you for the opportunity to evaluate your patient. For Medicare and Medicare HMO plans, please review the plan of care and approve it. It will need to be FAXED BACK to us at [phone] for Medicare purposes. For Medicare only, by signing this I certify the plan of care. Please let me know if there are questions or concerns regarding this plan of care. Physician Signature: Date:
--- NOTE | 2020-10-28 16:01 | HP.PTDCSUM ---
It has been my pleasure to treat FERNANDO REYNOSO referred by Dr. Juan Adams DO, with the diagnosis of OA R knee for a total of 9 visit(s). Discharge Date: 10/28/20 Please see the following information for a summary of their discharge status. Subjective: Pt is thinking about doing something on a regular basis... memebership type thing. She is sore today because she had to stand for 30 min and could not get out of it. She is doing the steps better. R knee pain Pain Intensity (Out of 10): 0 % Improvement: 50 Objective/Function: R knee AROM -5 degrees to 117 degrees. Stairs: able to go up and down the stairs recip with 2 hand rails. LE MMT: B hip flex 4-/5, B knee ext 4/5, B knee flex 4/5, R hip flex 4/5, able to do 1/2 normal ROM bridge Goal 1:: I HEP Goal Progress: Goal Met Goal 2:: Increase R knee AROM -3 degrees to 115 degrees R knee flexion Goal Progress: Progressing Goal 3:: Increase R LE strength by 1/2 muscle grade (at time of eval: LE MMT: B hip flex 4/5, R knee ext 4-/5 and L knee ext 4/5, R hip abd 4-/5 and L 4/5, R knee flex 4-/5 and L 4/5, able to do 1/2 normal ROM bridge). Goal 4:: Be able to go up and down the stair recip with B hand rails Goal Progress: Goal Met Plan: DC PT to HEP Discharge Comments: DC PT to HEP/gym routine If there are questions or concerns regarding this patient's physical therapy, please feel free to call me at [phone]. Thank you for the referral of this patient. Sincerely, Ivonne Renee, MPT Balance/Gait/Functional tests - Balance/Special Test Scores Lower Extremity Functional Score: 41
== END 2020-10-28 19:00 | disposition home or self-care (01) ==
LOC: PT 15:30
PROVIDERS: PCP Family Medicine; Referring Provider Orthopaedic Surgery; Visit Provider Orthopaedic Surgery
DX: M17.11 Unilateral primary osteoarthritis, right knee (principal)
CPT/HCPCS: 97110; 97530

== ENCOUNTER → 2020-11-07 08:59 | Outpatient (CLI) | payer MEDICARE, OTHER, SELFPAY ==
[2020-11-07 10:39] LABS: AST(SGOT) 16 U/L (15-37); Alanine Aminotransfer ALT/SGPT 26 U/L (13-56); Albumin, Serum 3.2 g/dL (3.2-5.0); Alkaline Phosphatase 73 U/L (45-117); Bilirubin, Direct 0.19 mg/dL (0.00-0.30); Cholesterol 211 mg/dL (200); Globulin 4.3 g/dL (2.2-4.2); High Density Lipoprotein 72 mg/dL; Protein, Total 7.5 g/dL (6.4-8.2); Triglycerides 66 mg/dL; Very Low Density Lipoprotein 13 mg/dL (5-40)
== END ==
PROVIDERS: PCP Family Medicine; Referring Provider Internal Medicine Cardiovascular Disease; Visit Provider Internal Medicine Cardiovascular Disease
DX: I10 Essential (primary) hypertension (principal); E78.00 Pure hypercholesterolemia, unspecified
CPT/HCPCS: 36415; 80061; 80076

== ENCOUNTER → 2020-11-18 12:39 | Outpatient (CLI) | payer MEDICARE, OTHER, SELFPAY ==
--- NOTE | 2020-11-18 12:40 | ECHOD_ITS ---
Reason For Study: MURMUR Procedure This was a 2D Doppler, Color Flow transthoracic echocardiogram. The study was technically difficult. Exam performed in department. Left Ventricle Normal LV size. Sigmoid septum. Left ventricular systolic function is normal. The estimated ejection fraction is 65 %. Transmitral diastolic flow velocities suggest moderate (stage 2) diastolic dysfunction (pseudonormal pattern). No regional wall motion abnormalities noted. Right Ventricle Normal RV size. Normal systolic function. Atria The left atrium is mildly enlarged. Normal right atrium. No doppler evidence for ASD. Mitral Valve There is no mitral annular calcification. Mild focal mitral valve calcification of the anterior leaflet. Trivial mitral valve insufficiency. Tricuspid Valve Normal tricuspid valve. Trivial tricuspid valve insufficiency. Right ventricular systolic pressure estimated to be 27 mmHg. Aortic Valve Trisinus/trileaflet aortic valve. Moderate focal aortic valve calcification. Pulmonic Valve The pulmonic valve is not well visualized. Trivial pulmonic valve insufficiency. Great Vessels Normal sized aortic root. Pericardium/Pleural No pericardial effusion. MMode/2D Measurements & Calculations LVIDd: 4.3 cm IVSd: 0.91 cm Ao root diam: 2.9 cm LVIDs: 2.8 cm LVPWd: 0.98 cm RVDd: 3.4 cm FS: 35.6 % LAV(MOD-bp): 77.2 ml LA A4 area: 23.6 cm2 LA dimension(2D): 3.5 cm LAV(MOD-bp) Indexed: 41.7 ml/m2 LAV(MOD-sp2): 60.5 ml LAV(MOD-sp4): 87.3 ml RA A4 area: 17.2 cm2 Time Measurements MV dec time: 0.19 sec Doppler Measurements & Calculations MV E max aramis: 97.7 cm/sec Lat Peak E' Aramis: 5.9 cm/sec Med Peak E' Aramis: 6.0 cm/sec MV A max aramis: 83.1 cm/sec E/E' lat: 16.5 E/E' med: 16.3 MV E/A: 1.2 Ao V2 max: 136.2 cm/sec LV V1 max: 94.8 cm/sec PA V2 max: 81.0 cm/sec Ao max P.4 mmHg LV V1 max P.6 mmHg TR max aramis: 245.4 cm/sec TR max P.1 mmHg ECHO/Echo Complete Interpretation Summary The study was technically difficult. Left ventricular systolic function is normal. The estimated ejection fraction is 65 %. Sigmoid septum. The left atrium is mildly enlarged. Mild focal mitral valve calcification of the anterior leaflet. Trivial mitral valve insufficiency. Trivial tricuspid valve insufficiency. Moderate focal aortic valve calcification. Trivial pulmonic valve insufficiency. Right ventricular systolic pressure estimated to be 27 mmHg. Transmitral diastolic flow velocities suggest diastolic dysfunction (pseudonorm al pattern). Ordering Physician: Maxx Stephens Referring Physician: Jarred Portillo Performed By: Cynthia Fajardo RDCS, RVT
--- NOTE | 2020-11-18 12:40 | CDU_ITS ---
Reason For Study: Carotid artery stenosis Rt. Velocities/BP Lt. Velocities/BP Prox CCA 115.2/10.8 cm/sec. Prox CCA 81.4/10.2 cm/sec. Mid CCA 100.8/16 cm/sec. Mid CCA 92.5/9 cm/sec. Dist CCA 64.3/13.4 cm/sec. Dist CCA 66.7/9 cm/sec. Prox ICA 46.5/12.4 cm/sec. Prox ICA 137.5/24.3 cm/sec. Mid ICA 80.5/19 cm/sec. Mid ICA 110.1/18.8 cm/sec. Dist ICA 82.7/16.8 cm/sec. Dist ICA 79.1/20.6 cm/sec. Rt. ICA/CCA = 0.82. Lt. ICA/CCA = 1.49. Prox ECA 111.2/6.9 cm/sec. Prox ECA 117.4/2.4 cm/sec. Rt. Vert. 31.7/7.2 cm/sec. Lt. Vert. 38.8/11.3 cm/sec. Right Extracranial There is intimal thickening but no significant atherosclerotic plaque noted in the right common carotid artery. There is heterogeneous, irregular atherosclerotic plaque noted in the right internal carotid artery. There is intimal thickening but no significant atherosclerotic plaque noted in the right external carotid artery. Antegrade flow is noted in the right vertebral artery. Left Extracranial There is intimal thickening but no significant atherosclerotic plaque noted in the left common carotid artery. There is heterogeneous, irregular atherosclerotic plaque noted in the left internal carotid artery. There is heterogeneous, irregular atherosclerotic plaque noted in the left external carotid artery. Antegrade flow is noted in the left vertebral artery. Procedure This is a Carotid Duplex examination using B-mode, color flow and specral Doppler. Carotid Duplex [id number]. Exam performed in department. VL/Carotid Duplex Ultrasound Interpretation Summary Mild (<50%) stenosis right extracranial internal carotid. Moderate (50-69%) juancarlos nosis left extracranial internal carotid. Flow within the vertebral arteries is antegrade bilaterally. Ordering Physician: Maxx Stephens Referring Physician: Jarred Portillo Performed By: Pamela Fay RVT
== END ==
PROVIDERS: PCP Family Medicine; Referring Provider Internal Medicine Cardiovascular Disease; Visit Provider Internal Medicine Cardiovascular Disease
DX: R06.02 Shortness of breath (principal); R09.89 Other specified symptoms and signs involving the circulatory and respiratory systems; R01.1 Cardiac murmur, unspecified; I10 Essential (primary) hypertension
CPT/HCPCS: 93306; 93880

== ENCOUNTER 2021-06-03 13:03 | Outpatient (CLI) | payer MEDICARE, OTHER, SELFPAY ==
--- NOTE | 2021-06-03 13:07 | BI_ITS ---
MAMMOGRAPHY - BILATERAL SCREENING REASON FOR EXAM: Female, 81 years old. Routine annual screening examination. PERTINENT HISTORY: Non-contributory. Remote right excisional breast biopsy. TECHNIQUE: Digital bilateral breast ivan (3D mammographic acquisition) in the CC and MLO projections. 2-D mediolateral oblique (MLO) and craniocaudad (CC) views of both breasts were obtained. CAD: Full Field Digital Mammography with Computer Added Detection was performed. COMPARISON: Comparison is made with prior study dated 05/23/2020 and 04/19/2019. FINDINGS: Breast Composition: The breasts are heterogeneously dense, which may obscure small masses. There are no dominant masses or suspicious calcifications. No other significant abnormalities are identified. There has been no significant change since the prior study. BI/SCRN MAMM (CAD)W/IVAN BILAT IMPRESSION: Stable bilateral screening mammogram. Yearly follow-up mammogram recommended. (A) ASSESSMENT CATEGORY: BIRADS Category 1: Negative. A letter regarding these results will be sent to the patient by the facility within 30 days. Approximately 10% of breast cancers are not detected by mammography. A normal mammogram should not delay biopsy of a clinically suspicious abnormality. [id number] Electronically Signed: Charly Booker MD at 9:56 EDT ,
== END 2021-06-03 23:59 | disposition home or self-care (01) ==
LOC: OPBI 13:05
PROVIDERS: PCP Family Medicine; Visit Provider Family Medicine
DX: Z12.31 Encounter for screening mammogram for malignant neoplasm of breast (principal)
CPT/HCPCS: 77063; 77067

== ENCOUNTER → 2021-12-08 | Outpatient (CLI) | payer MEDICARE, OTHER, SELFPAY ==
[2021-12-08 12:39] LABS: Absolute Lymphocyte Count 1.41 X10^3/uL (0.83-4.51); Absolute Neutrophil Count 5.4 X10^3/uL (2.0-7.7); Basophil# 0.06 X10^3/uL; Basophil% 0.8 % (0-1); Eosinophil# 0.07 X10^3/uL; Eosinophils% 0.9 % (0-5); Lymphocyte # 1.41 X10^3/ul (0.83-4.51); Lymphocyte % 17.9 % (19-41); Mean Corp Hgb Conc 32.6 g/dL (32-36); Mean Corpuscular Hgb 29.5 pg (27.0-32.0); Mean Corpuscular Volume 90.5 fL (81-99); Mean Platelet Vol. 10.2 fl (6.2-12.0); Monocyte# 0.89 X10^3/uL; Monocyte% 11.3 % (0-10); NRBC Flagged by Analyzer 0 % (0-5); Neutrophil # 5.42 X10^3/uL (2.7-7.7); Neutrophil % 68.8 % (47-70); Platelet Count 302 K/mm3 (150-450); RBC Distribution Width CV 13.3 % (11.6-14.6); RBC Distribution Width SD 44.6 fl (35.1-43.9); Red Blood Count 4.75 M/mm3 (4.2-5.4); White Blood Count 7.9 K/mm3 (4.4-11.0)
[2021-12-08 12:51] LABS: AST(SGOT) 22 U/L (15-37); Alanine Aminotransfer ALT/SGPT 30 U/L (13-56); Albumin, Serum 3.7 g/dL (3.2-5.0); Alkaline Phosphatase 75 U/L (45-117); Globulin 4.3 g/dL (2.2-4.2)
[2021-12-08 13:19] LABS: HIV - WCH Non-Reactive (Nonreactive); Hepatitis B Surface Antibody Non-Reactive; Hepatitis B Surface Antigen Non-Reactive (Nonreactive); Hepatitis C Antibody Non-Reactive (Nonreactive)
[2021-12-10 18:07] LABS: QNTFERON TB Mitogen Value > 10.00 IU/mL (.); QNTFERON TB Nil Value 0.01 IU/mL (.); QNTFERON TB1+ Ag Value 0 IU/mL (.); QNTFERON TB2+ Ag Value 0 IU/mL (.)
[2021-12-11 15:55] LABS: Hepatitis B Core Ab Total Negative (Negative); QNTIFERON TB Positive Criteria Negative (Negative)
== END | disposition home or self-care (01) ==
PROVIDERS: PCP Family Medicine; Referring Provider Dermatology; Visit Provider Dermatology
DX: L40.8 Other psoriasis (principal); L40.0 Psoriasis vulgaris; D22.5 Melanocytic nevi of trunk; L82.1 Other seborrheic keratosis; L57.8 Other skin changes due to chronic exposure to nonionizing radiation; Z71.89 Other specified counseling; Z79.899 Other long term (current) drug therapy
CPT/HCPCS: 36415; 80076; 85025; 86480; 86703; 86704; 86706; 86803; 87340

== ENCOUNTER → 2021-12-17 | Outpatient (CLI) | payer MEDICARE, OTHER, SELFPAY ==
[2021-12-17 12:10] LABS: Absolute Lymphocyte Count 1.26 X10^3/uL (0.83-4.51); Absolute Neutrophil Count 4.4 X10^3/uL (2.0-7.7); Basophil# 0.04 X10^3/uL; Basophil% 0.6 % (0-1); Eosinophil# 0.07 X10^3/uL; Eosinophils% 1.1 % (0-5); Hematocrit 43.4 % (37-47); Lymphocyte # 1.26 X10^3/ul (0.83-4.51); Lymphocyte % 19.3 % (19-41); Mean Corp Hgb Conc 32.3 g/dL (32-36); Mean Corpuscular Hgb 29.3 pg (27.0-32.0); Mean Corpuscular Volume 90.8 fL (81-99); Mean Platelet Vol. 10.1 fl (6.2-12.0); Monocyte# 0.75 X10^3/uL; Monocyte% 11.5 % (0-10); NRBC Flagged by Analyzer 0 % (0-5); Neutrophil % 67.2 % (47-70); Platelet Count 310 K/mm3 (150-450); RBC Distribution Width CV 13.2 % (11.6-14.6); Red Blood Count 4.78 M/mm3 (4.2-5.4); White Blood Count 6.5 K/mm3 (4.4-11.0)
[2021-12-17 12:58] LABS: Vitamin D,25 Hydroxy 56.3 ng/mL
[2021-12-17 13:09] LABS: ALB/GLOB Ratio 0.9 RATIO (0.9-2.4); AST(SGOT) 20 U/L (15-37); Alanine Aminotransfer ALT/SGPT 30 U/L (13-56); Albumin, Serum 3.4 g/dL (3.2-5.0); Alkaline Phosphatase 77 U/L (45-117); Anion Gap 8 (5-15); BUN 27 mg/dL (7-18); BUN/Creat Ratio 30.6 RATIO (10-20); Calcium,Total 8.7 mg/dL (8.5-10.1); Chloride 107 mmol/L (98-107); Creatinine, Serum 0.88 mg/dL (0.55-1.02); EST Glomerular Filtration Rate 65 mL/min (>60); Est Glom Filt Rate - Afr Amer 79 mL/min (>60); Globulin 3.9 g/dL (2.2-4.2); Glucose 95 mg/dL (74-106); Potassium 4.2 mmol/L (3.5-5.1); Protein, Total 7.3 g/dL (6.4-8.2); Sodium Level 140 mmol/L (136-145); T4 Free Direct 1.22 ng/dL (0.76-1.46); Thyroid Stim Hormone (TSH) 2.82 uIU/mL (0.358-3.74)
== END | disposition home or self-care (01) ==
LOC: BFHLAB 10:27
PROVIDERS: PCP Family Medicine; Visit Provider Family Medicine
DX: E03.9 Hypothyroidism, unspecified (principal); I10 Essential (primary) hypertension; E55.9 Vitamin D deficiency, unspecified
CPT/HCPCS: 36415; 80053; 82306; 84439; 84443; 85025

== ENCOUNTER → 2022-01-27 | Outpatient (CLI) | payer MEDICARE, OTHER, SELFPAY ==
--- NOTE | 2022-01-27 12:59 | BD_ITS ---
STUDY: DUAL ENERGY X-RAY ABSORPTIOMETRY / DXA REASON FOR EXAM: Female, 82 years old. M810 TECHNIQUE: Bone Mineral Density (BMD) measurements of lumbar spine and bilateral hips were obtained. COMPARISON: Comparison is made with prior study 12/15/2018. FINDINGS: Lumbar Spine (L1-L4): g/cm2 (0.838) / T-score (-2.0) / Z-score (0.8) Findings are suggestive of osteopenia with a moderate fracture risk. Left Femur Total: g/cm2 (0.787) / T-score (-1.3) / Z-score (0.9) Left Femoral Neck: g/cm2 (0.511) / T-score (-3.0) / Z-score (-0.7) Right Femur Total: g/cm2 (0.748) / T-score (-1.6) / Z-score (0.6) Right Femoral Neck: g/cm2 (0.531) / T-score (-2.9) / Z-score (-0.5) The T-Scores on the most recent prior examination were: Lumbar Spine (L1-L4): There has been improvement of bone density since the previous examination. Left Femur Total: which represents an improvement of 12.9%. Right Femur Total: which represents a worsening of 1.2%. BD/Dexa Bone Density Study IMPRESSION: The patient is considered osteoporotic as outlined below according to World Pito Organization (WHO) criteria with a high fracture risk. There has been improvement of bone density since the previous examination. Reference Information: The T-score is the number of standard deviations above or below the standard which is normal for young adults at their peak bone mineral density. The World Health Organization (WHO) interprets the T-scores as follows: Above -1 Normal bone density Between -1 and -2.5 Osteopenia Equal to / or below -2.5 Osteoporosis As a practical clinical guideline, osteopenia may be graded as follows: Mild -1 through -1.5 Moderate -1.6 through -2.0 Severe -2.1 through -2.4 The Z-score is the number of standard deviations above or below age-matched controls. A Z-score of less than -1.5 would be considered abnormal. References: 1. NIH Osteoporosis and Related Bone Diseases www osteo.org 2. International Society for Clinical Densitometry www iscd.org 3. National Osteoporosis Foundation www nof.org Electronically Signed: Charly Booker MD at 10:55 EST ,
== END | disposition home or self-care (01) ==
LOC: OPBD 12:49
PROVIDERS: PCP Family Medicine; Visit Provider Family Medicine
DX: M81.0 Age-related osteoporosis without current pathological fracture (principal); M85.80 Other specified disorders of bone density and structure, unspecified site
CPT/HCPCS: 77080

== ENCOUNTER → 2022-05-20 | Outpatient (CLI) | payer MEDICARE, OTHER, SELFPAY ==
--- NOTE | 2022-05-20 12:41 | VDLE_ITS ---
Reason For Study: R/O DVT RIGHT LEFT CFV is compressible, spontaneous, phasic, GSV is normal. competent and demonstrates normal CFV is compressible, spontaneous, phasic, augmentation. competent, and demonstrates normal Procedure augmentation. This is a venous duplex using B-mode, color FV is compressible, spontaneous, phasic, flow and spectral Doppler. competent and demonstrates normal Exam performed in department. augmentation. A preliminary report was called and/or faxed POP V is compressible, spontaneous, phasic, to Dr. Merino @ 1:15 pm @ [phone] & competent and demonstrates normal [phone]. augmentation. Exam is out of order. T/P Trunk is compressible. PTV is compressible. LT PerV is compressible. VL/Venous Duplex US, Unilateral Interpretation Summary Deep veins of the left lower extremity are patent and compressible segmentally. There is no evidence of left lower extremity deep vein thrombosis. The left great saphenous vein timothy ears patent and compressible segmentally. Ordering Physician: Samantha Merino Referring Physician: Meredith Briggs Performed By: Cynthia Fajardo, RDCS, RVT
== END | disposition home or self-care (01) ==
PROVIDERS: PCP Internal Medicine; Referring Provider Podiatrist; Visit Provider Podiatrist
DX: M79.605 Pain in left leg (principal); R60.0 Localized edema
CPT/HCPCS: 93971

== ENCOUNTER → 2022-06-04 | Outpatient (CLI) | payer MEDICARE, OTHER, SELFPAY ==
--- NOTE | 2022-06-04 13:36 | BI_ITS ---
MAMMOGRAPHY - BILATERAL SCREENING REASON FOR EXAM: Female, 82 years old. Routine annual screening examination. PERTINENT HISTORY: Non-contributory. Remote right excisional breast biopsy. TECHNIQUE: Digital bilateral breast ivan (3D mammographic acquisition) in the CC and MLO projections. 2-D mediolateral oblique (MLO) and craniocaudad (CC) views of both breasts were obtained. CAD: Full Field Digital Mammography with Computer Added Detection was performed. COMPARISON: Comparison is made with prior study dated June 03, 2021 and May 23, 2020. FINDINGS: Breast Composition: The breasts are heterogeneously dense, which may obscure small masses. There are no dominant masses or suspicious calcifications. No other significant abnormalities are identified. There has been no significant change since the prior study. BI/SCRN MAMM (CAD)W/IVAN BILAT IMPRESSION: Stable bilateral screening mammogram. Yearly follow-up mammogram recommended. (A) ASSESSMENT CATEGORY: BIRADS Category 1: Negative. A letter regarding these results will be sent to the patient by the facility within 30 days. Approximately 10% of breast cancers are not detected by mammography. A normal mammogram should not delay biopsy of a clinically suspicious abnormality. [id number] Electronically Signed: Charly Booker MD at 15:03 EDT ,
== END | disposition home or self-care (01) ==
LOC: OPBI 13:34
PROVIDERS: PCP Internal Medicine; Referring Provider Internal Medicine; Visit Provider Internal Medicine
DX: Z12.31 Encounter for screening mammogram for malignant neoplasm of breast (principal)
CPT/HCPCS: 77063; 77067

== ENCOUNTER → 2022-07-31 | Outpatient (CLI) | payer MEDICARE, OTHER, SELFPAY ==
--- NOTE | 2022-07-31 13:39 | VDLE_ITS ---
Reason For Study: Swelling BLE RIGHT LEFT CFV is compressible, spontaneous, phasic, CFV is compressible, spontaneous, phasic, competent and demonstrates normal competent, and demonstrates normal augmentation. augmentation. FV is compressible, spontaneous, phasic, FV is compressible, spontaneous, phasic, competent and demonstrates normal competent and demonstrates normal augmentation. augmentation. POP V is compressible, spontaneous, phasic, POP V is compressible, spontaneous, phasic, competent and demonstrates normal competent and demonstrates normal augmentation. augmentation. T/P Trunk is compressible. T/P Trunk is compressible. PTV is compressible. PTV is compressible. RT PerV is compressible. LT PerV is compressible. SFJ is competent and measures 0.69cm x 0.63 SFJ is competent and measures 0.90cm x 0.82 cm. cm. GSV proximal thigh measures 0.39cm x 0.41 cm. GSV proximal thigh measures 0.56cm x 0.52 cm. GSV at knee measures 0.36cm x 0.36 cm. GSV at knee measures 0.49cm x 0.51 cm. GSV INCOMPETENT throughout for greater than GSV INCOMPETENT throughout for greater than 0.5 seconds. 0.5 seconds. SSV proximal calf is competent and measures SSV proximal calf is INCOMPETENT for greater 0.18cm x 0.20 cm. than 0.5 seconds and measures 0.29cm x 0.28 Rt ASV distal thigh is INCOMPETENT and cm. measures 0.20cm x 0.21cm Lt ASV groin to mid thigh is INCOMPETENT and Rt ASV knee is INCOMPETENT and measures measures 0.49cm x 0.51cm. 0.17cm x 0.18cm Rt ASV prox calf is INCOMPETENT and measures 0.26cm x 0.30cm Hypoechoic, non vascular structure noted Rt Pop Fossa measuring 0.97cm x 3.15cm. Procedure This is a venous duplex using B-mode, color flow and spectral Doppler. Exam performed in department. A preliminary report was called and/or faxed to Dr. Smith. VL/Venous Duplex US - Jordin Extrem Interpretation Summary Deep veins of the bilateral lower extremities are patent and compressible segme ntally. There is no evidence of bilateral lower extremity deep vein thrombosis. The bilateral great saphenous veins appear patent and compressible segmentally. Positive for reflux in the right great saphenous vein, accessory saphenous vein . Positive for reflux in the left great saphenous vein, small saphenous vein, acc essory saphenous vein. Hypoechoic, non vascular structure noted right popliteal fossa measuring 0.97cm x 3.15cm. Ordering Physician: Uma Santos Referring Physician: Meredith Briggs Performed By: Inez Perrin, WILD, RVT
== END | disposition home or self-care (01) ==
LOC: CVS 13:39
PROVIDERS: PCP Internal Medicine; Referring Provider Physician Assistant; Visit Provider Physician Assistant
DX: R60.0 Localized edema (principal); M79.89 Other specified soft tissue disorders
CPT/HCPCS: 93970

== ENCOUNTER → 2022-09-23 | Outpatient (CLI) | payer MEDICARE, OTHER, SELFPAY ==
[2022-09-23 10:20] LABS: Absolute Lymphocyte Count 1.29 X10^3/uL (0.83-4.51); Absolute Neutrophil Count 3.5 X10^3/uL (2.0-7.7); Basophil# 0.03 X10^3/uL; Basophil% 0.5 % (0-1); Eosinophil# 0.13 X10^3/uL; Eosinophils% 2.3 % (0-5); Hematocrit 44.4 % (37-47); Lymphocyte # 1.29 X10^3/ul (0.83-4.51); Mean Corp Hgb Conc 31.5 g/dL (32-36); Mean Corpuscular Hgb 28.8 pg (27.0-32.0); Mean Corpuscular Volume 91.4 fL (81-99); Mean Platelet Vol. 9.7 fl (6.2-12.0); Monocyte# 0.67 X10^3/uL; Monocyte% 11.9 % (0-10); NRBC Flagged by Analyzer 0 % (0-5); Neutrophil # 3.47 X10^3/uL (2.7-7.7); Neutrophil % 61.9 % (47-70); Platelet Count 294 K/mm3 (150-450); RBC Distribution Width CV 13.2 % (11.6-14.6); RBC Distribution Width SD 44.5 fl (35.1-43.9); Red Blood Count 4.86 M/mm3 (4.2-5.4); White Blood Count 5.6 K/mm3 (4.4-11.0)
[2022-09-23 11:14] LABS: ALB/GLOB Ratio 0.8 RATIO (0.9-2.4); AST(SGOT) 22 U/L (15-37); Alanine Aminotransfer ALT/SGPT 29 U/L (13-56); Albumin, Serum 3.1 g/dL (3.2-5.0); Alkaline Phosphatase 72 U/L (45-117); Anion Gap 6 (5-15); BUN 16 mg/dL (7-18); BUN/Creat Ratio 21.2 RATIO (10-20); Calcium,Total 9.1 mg/dL (8.5-10.1); Chloride 109 mmol/L (98-107); Cholesterol 174 mg/dL (200); Creatinine, Serum 0.76 mg/dL (0.55-1.02); EST Glomerular Filtration Rate 78 mL/min (>60); Est Glom Filt Rate - Afr Amer 94 mL/min (>60); Free T3 2.2 pg/mL (2.18-3.98); Glucose 95 mg/dL (74-106); High Density Lipoprotein 62 mg/dL; Magnesium 2.1 mg/dL (1.6-2.6); Potassium 3.7 mmol/L (3.5-5.1); Protein, Total 7.1 g/dL (6.4-8.2); Sodium Level 142 mmol/L (136-145); T4 Free Direct 1.24 ng/dL (0.76-1.46); Thyroid Stim Hormone (TSH) 3.05 uIU/mL (0.358-3.74); Triglycerides 94 mg/dL; Very Low Density Lipoprotein 19 mg/dL (5-40)
== END | disposition home or self-care (01) ==
LOC: MTLAB 08:19
PROVIDERS: PCP Internal Medicine; Referring Provider Internal Medicine; Visit Provider Internal Medicine
DX: L40.50 Arthropathic psoriasis, unspecified (principal); E66.01 Morbid (severe) obesity due to excess calories; M81.0 Age-related osteoporosis without current pathological fracture; E78.5 Hyperlipidemia, unspecified; I10 Essential (primary) hypertension; E03.9 Hypothyroidism, unspecified; G47.33 Obstructive sleep apnea (adult) (pediatric); Z76.89 Persons encountering health services in other specified circumstances; Z68.38 Body mass index [BMI] 38.0-38.9, adult; R09.89 Other specified symptoms and signs involving the circulatory and respiratory systems; E55.9 Vitamin D deficiency, unspecified
CPT/HCPCS: 36415; 80053; 80061; 82306; 83735; 84439; 84443; 84481; 85025

== ENCOUNTER → 2022-11-16 | Outpatient (CLI) | payer MEDICARE, OTHER, SELFPAY ==
[2022-11-16 16:01] LABS: Anion Gap 5 (5-15); BUN 15 mg/dL (7-18); Chloride 110 mmol/L (98-107); Creatinine, Serum 0.83 mg/dL (0.55-1.02); EST Glomerular Filtration Rate 69 mL/min (>60); Est Glom Filt Rate - Afr Amer 84 mL/min (>60); Glucose 96 mg/dL (74-106); Magnesium 2.4 mg/dL (1.6-2.6); Potassium 4.3 mmol/L (3.5-5.1); Sodium Level 143 mmol/L (136-145)
== END | disposition home or self-care (01) ==
LOC: LAB 15:04
PROVIDERS: PCP Internal Medicine; Referring Provider Internal Medicine Cardiovascular Disease; Visit Provider Internal Medicine Cardiovascular Disease
DX: R00.2 Palpitations (principal); R01.1 Cardiac murmur, unspecified; I10 Essential (primary) hypertension
CPT/HCPCS: 36415; 80048; 83735

== ENCOUNTER → 2022-11-27 | Outpatient (CLI) | payer MEDICARE, OTHER, SELFPAY ==
--- NOTE | 2022-11-27 08:31 | ECHOD_ITS ---
Reason For Study: PATEL Procedure This was a 2D Doppler, Color Flow transthoracic echocardiogram. Exam performed in department. Left Ventricle Normal LV size. Mild concentric left ventricular hypertrophy. Diastolic function is indeterminate. The left ventricular ejection fraction is 65 %. Right Ventricle Normal right ventricle. Atria The left atrium is mildly enlarged. Normal right atrium. Mitral Valve Trivial mitral valve insufficiency. Tricuspid Valve Mild tricuspid valve insufficiency. Right ventricular systolic pressure estimated to be 35 mmHg. Aortic Valve Aortic sclerosis, no stenosis. Pulmonic Valve The pulmonic valve is not well visualized. Great Vessels Normal sized aortic root. Pericardium/Pleural No pericardial effusion. MMode/2D Measurements & Calculations LVIDd: 4.1 cm IVSd: 1.1 cm Ao root diam: 3.1 cm LVIDs: 2.9 cm LVPWd: 1.2 cm RVDd: 3.5 cm FS: 30.4 % LAV(MOD-bp): 69.3 ml LVAd ap4: 25.2 cm2 SV(MOD-sp4): 42.4 ml LAV(MOD-bp) Indexed: 36.7 ml/m2 LVLd ap4: 7.6 cm LAV(MOD-sp2): 63.0 ml EDV(MOD-sp4): 70.1 ml LAV(MOD-sp4): 72.0 ml EDV(sp4-el): 70.3 ml LVAs ap4: 14.2 cm2 LVLs ap4: 6.5 cm ESV(MOD-sp4): 27.8 ml ESV(sp4-el): 26.1 ml EF(MOD-sp4): 60.4 % EF(sp4-el): 62.9 % SV(sp4-el): 44.2 ml LA A4 area: 22.6 cm2 LA dimension(2D): 3.8 cm RA A4 area: 14.8 cm2 TAPSE: 2.9 cm Time Measurements MV dec time: 0.21 sec Doppler Measurements & Calculations MV E max aramis: 100.3 cm/sec Lat Peak E' Raamis: 8.6 cm/sec Med Peak E' Aramis: 8.1 cm/sec MV A max aramis: 83.0 cm/sec E/E' lat: 11.6 E/E' med: 12.4 MV E/A: 1.2 Ao V2 max: 153.0 cm/sec LV V1 max: 99.9 cm/sec MV dec slope: 486.4 cm/sec2 Ao max P.4 mmHg LV V1 max P.0 mmHg Ao V2 mean: 105.3 cm/sec LV V1 mean P.2 mmHg Ao mean P.1 mmHg LV V1 mean: 70.6 cm/sec Ao V2 VTI: 39.1 cm LV V1 VTI: 25.0 cm AV (velocity ratio): 0.64 MR max aramis: 109.2 cm/sec PA V2 max: 95.4 cm/sec TR max aramis: 267.2 cm/sec MR max P.8 mmHg PA V2 mean: 70.4 cm/sec TR max P.6 mmHg MR mean aramis: 60.2 cm/sec MR mean P.7 mmHg MR VTI: 31.9 cm ECHO/Echo Complete Interpretation Summary Mild concentric left ventricular hypertrophy. Diastolic function is indeterminate. The left ventricular ejection fraction is 65 %. The left atrium is mildly enlarged. Mild tricuspid valve insufficiency. Ordering Physician: Karine Frederick Referring Physician: Meredith Briggs Performed By: Cynthia Fajardo, WILD, RVT
== END | disposition home or self-care (01) ==
LOC: CVS 08:31
PROVIDERS: PCP Internal Medicine; Referring Provider Internal Medicine Cardiovascular Disease; Visit Provider Internal Medicine Cardiovascular Disease
DX: G47.33 Obstructive sleep apnea (adult) (pediatric) (principal); R00.2 Palpitations; R01.1 Cardiac murmur, unspecified; I10 Essential (primary) hypertension; R06.02 Shortness of breath
CPT/HCPCS: 93225; 93226; 93306

== ENCOUNTER 2022-12-17 08:25 | Day surgery (SDC) | payer MEDICARE, OTHER, SELFPAY ==
[2022-12-17 08:39] LABS: Hematocrit 44.2 % (37-47); Hemoglobin 13.8 g/dL (12.0-15.0); Mean Corp Hgb Conc 31.2 g/dL (32-36); Mean Corpuscular Hgb 29.1 pg (27.0-32.0); Mean Corpuscular Volume 93.1 fL (81-99); Mean Platelet Vol. 9.4 fl (6.2-12.0); Platelet Count 305 K/mm3 (150-450); RBC Distribution Width CV 13.5 % (11.6-14.6); RBC Distribution Width SD 46.3 fl (35.1-43.9); Red Blood Count 4.75 M/mm3 (4.2-5.4); White Blood Count 8.4 K/mm3 (4.4-11.0)
[2022-12-17 08:52] LABS: Anion Gap 3 (5-15); BUN 19 mg/dL (7-18); BUN/Creat Ratio 23.8 RATIO (10-20); Calcium,Total 9.2 mg/dL (8.5-10.1); Chloride 111 mmol/L (98-107); EST Glomerular Filtration Rate 73 mL/min (>60); Est Glom Filt Rate - Afr Amer 88 mL/min (>60); Glucose 104 mg/dL (74-106); Potassium 4.1 mmol/L (3.5-5.1); Sodium Level 141 mmol/L (136-145)
--- NOTE | 2022-12-17 10:20 | PCM.HP.STD ---
HPI - General HPI Narrative FERNANDO REYNOSO, is a 82 F who presents with left lower extremity venous insufficiency with pain, lipodermatosclerosis. No relief with compression. [facility] Medical History Abnormal PFTs (pulmonary function tests) Adenocarcinoma Adenocarcinoma of salivary gland Arthritis Back pain Bilateral carotid artery stenosis Bilateral carotid bruits Cardiac murmur Encounter to establish care Essential hypertension Fibromyalgia Hearing problem Heart disease Hemorrhoids Hives HLD (hyperlipidemia) Hypothyroidism Knee pain Leg edema, left Lipodermatosclerosis of left lower extremity Obesity PATEL (obstructive sleep apnea) Osteoarthritis Osteopenia Osteoporosis Palpitations Psoriasis Psoriatic arthritis SOB (shortness of breath) Thyroid disease Tiredness Tumors Urinary tract infection Venous insufficiency Venous insufficiency of both lower extremities Home Medications levothyroxine 75 mcg tablet 75 mcg PO DAILY 01/27/13 [History Last Taken 12/17/22] ascorbate calcium (vitamin C) 500 mg tablet 500 mg PO DAILY 01/01/19 [History Last Taken Unknown] multivitamin 1 cap PO DAILY 01/01/19 [History Last Taken Unknown] omega-3 fatty acids 1,000 mg capsule (Fish Oil Concentrate) 1,000 mg PO DAILY 01/01/19 [History Last Taken Unknown] elderberry fruit 200 mg capsule 1,000 mg PO DAILY 11/11/20 [History Last Taken Unknown] coenzyme Q10 400 mg capsule (Co Q-10) 800 mg PO DAILY 09/25/21 [History Last Taken Unknown] lutein 20 mg capsule 20 mg PO DAILY 09/25/21 [History Last Taken Unknown] triamcinolone acetonide 0.1 % topical cream 1 applic topical DAILY PRN rash 09/25/21 [History Last Taken 12/16/22] vitamin B complex (Complex B-100 tablet,extended release) 1 tab PO DAILY 09/25/21 [History Last Taken Unknown] zinc oxide-zinc citrate 50 mg tablet mg PO 09/25/21 [History Last Taken Unknown] cholecalciferol (vitamin D3) 125 mcg (5,000 unit) tablet 125 mcg PO DAILY 12/15/21 [History Last Taken Unknown] clobetasol 0.05 % scalp solution 1 applic topical DAILY 12/15/21 [History Last Taken Unknown] losartan 100 mg tablet 100 mg PO DAILY #90 tabs 03/18/22 [Rx Last Taken Unknown] aspirin 81 mg tablet,delayed release (Adult Aspirin Regimen) 81 mg PO DAILY 11/16/22 [History Last Taken Unknown] phytonadione (vitamin K1) 100 mcg tablet 100 mcg PO DAILY 11/16/22 [History Last Taken Unknown] quercetin 500 mg capsule mg PO QDAY 11/16/22 [History Last Taken Unknown] vitamin E (dl, acetate) 180 mg (400 unit) capsule 180 mg PO DAILY 11/16/22 [History Last Taken Unknown] Allergy/AdvReac Type Severity Reaction Status Date / Time atorvastatin AdvReac Severe Myalgias Verified 11/16/22 14:13 and elevated CK turmeric AdvReac Intermediate Diarrhea Verified 11/16/22 14:13 adhesive tape AdvReac Mild whelts Verified 11/16/22 14:13 Pillo's wort AdvReac Vomiting Verified 11/16/22 14:13 [Pillo's Wort] Family History Mother Hypertension Arthritis Dementia Abdominal aortic aneurysm (AAA) CHF (congestive heart failure) Sister Asthma Hypertension Diabetes Daughter Asthma Heart disease Sister Arthritis Diabetes Thyroid disorder Other Psoriasis Surgical History H/O total knee replacement History of cataract surgery History of knee replacement procedure of left knee History of lumpectomy of right breast History of repair of right rotator cuff History of tubal ligation History of vaginal hysterectomy Social History adopted: No household members: none housing: house number of children: 3 current occupational status: retired pets and animals: No leisure activities: other history of recent travel: No sexually active: No Smoking Status: Never smoker second hand exposure: No alcohol intake: never substance use type: does not use well-balanced diet: daily or most days caffeine: Yes eating out: rarely or never during the past year weight has: remained stable justo/amish: Worship seatbelt use: always do you feel safe at home: Yes ROS Constitutional Constitutional: Denies chills, fever(s), frequent falls, lethargy or weakness Eyes Eyes: Denies blind spots, change in vision or loss of vision ENT HEENT: Denies bleeding gums, hoarseness or sore throat Cardiovascular Cardiovascular: Denies abdominal pain, bluish discoloration of hand/feet, chest pain with activity, claudication, cold extremities, cyanosis, dyspnea on exertion, erythema on extremities, irregular heart rhythm, leg edema, leg ulcers, numbness in extremities or weakness in extremities Respiratory/Chest Respiratory/Chest: Denies cough, excessive phlegm production, shortness of breath at rest, shortness of breath with exertion or wheezing Gastrointestinal Gastrointestinal: Denies anorexia, change in stool character, constipation, diarrhea, melena or rectal bleeding Genitourinary Genitourinary: Denies dysuria or hematuria Musculoskeletal Musculoskeletal: Denies abnormal gait Integumentary Integumentary: Reports other Details: ; Denies erythema, non-healing lesions or wounds Neurologic Neurologic: Denies abnormal speech, focal weakness, headache(s), loss of vision, numbness, paresthesias or sensory deficit Hematologic/Lymphatic Hematologic/Lymphatic: Denies easy bleeding, easy bruising or lymphadenopathy Vital Signs Vital Signs Vital Signs: Weight Weight: 197 lb Physical Exam Const alert, oriented x3, no apparent distress and healthy appearing General Appearance: cooperative; Negative for combative or lethargic Orientation / Consciousness: awake Exam Limitations: no limitations HEENT Head and Scalp: normocephalic and atraumatic Eyes EOMs intact bilaterally General Eye: normal appearance of both eyes Neck full ROM, no lymphadenopathy, thyroid normal and No no carotid bruits General: trachea midline; Negative for lymphadenopathy or tenderness Thyroid: thyroid normal Lymph Lymphatic: Negative for no lymphadenopathy noted Resp normal respiratory effort, no use of accessory muscles and clear to auscultation bilaterally Effort and Inspection: Negative for labored, stridor or audible wheezes Cardio regular rate, regular rhythm and no murmurs Peripheral Pulses: brachial pulses present, radial pulses present, femoral pulses present, popliteal pulses present, posterior tibial pulses present and dorsalis pedis pulses present GI non-tender and non-distended; Negative for hepatosplenomegaly Back/Spine Cervical Spine: cervical ROM normal Extremity full ROM, normal capillary refill and no clubbing, cyanosis or edema Skin no rashes or lesions noted and no wounds Neuro oriented x3, CN's II-XII intact bilaterally, no focal motor deficits and no sensory deficits noted Psych thought process normal, cooperative, affect normal, speech normal and activity/motor behavior normal Results Lab / Micro Data 12/17/22 08:31 12/17/22 08:31 Labs: Laboratory Results - last 24 hr 12/17/22 08:31: WBC 8.4, RBC 4.75, Hgb 13.8, Hct 44.2, MCV 93.1, MCH 29.1, MCHC 31.2 L, RDW Std Deviation 46.3 H, RDW Coeff of Adenike 13.5, Plt Count 305, MPV 9.4, Sodium 141, Potassium 4.1, Chloride 111 H, Carbon Dioxide 27.0, Anion Gap 3 L, BUN 19 H, Creatinine 0.80, Est GFR (MDRD) Af Amer 88, Est GFR (MDRD) Non-Af 73, BUN/Creatinine Ratio 23.8 H, Glucose 104, Calcium 9.2 Assessment & Plan Assessment/Plan (1) Venous insufficiency of both lower extremities: PLAN: -venous reflux, refractory to compression -chemical ablation
--- NOTE | 2022-12-17 11:13 | PCM.OPRPT ---
Report of Operation Date of Procedure: 12/17/22 Pre-Operative Diagnosis: venous insufficiency Post-Operative Diagnosis: same Surgery/Procedure Performed:: chemical ablation left great saphenous vein Surgeon: Ayad Smith Type of Anesthesia: Local Estimated Blood Loss (mL): 2 Description of Procedure: 56 cm treatment length HPI: Patient is a 82-year-old female with venous insufficiency, pain, and skin discoloration and hardening consistent with lipodermatosclerosis of left lower extremity. She has significant reflux throughout her great saphenous vein from the saphenofemoral junction down to the ankle. She presents now for chemical ablation. Description of procedure: Upon obtaining informed consent and verification correct patient procedure site patient taken to the [facility] where she was positioned prepped and draped in usual fashion. Timeouts were performed and the saphenous vein assessed with ultrasound with patent saphenous vein throughout which was dilated consistent with venous sufficiency. Skin overlying the saphenous vein just above the medial malleolus was anesthetized 1% lidocaine the vessel accessed with micropuncture needle wire under ultrasound guidance. This was then exchanged for the 7 [place] ablation sheath which was advanced without resistance. Through the 7 [place] sheath the guidewire was advanced up to the saphenofemoral junction under ultrasound guidance. The ablation delivery guide was then advanced in the position at the saphenofemoral junction and the wire and the dilator withdrawn. The chemical ablation delivery catheter was then advanced to the appropriate shannon, the combined guide and catheter were pulled back 5 cm and the catheter advanced until it was mated with the guide. We then performed glue infusion per operations/dispatch's instructions throughout the great saphenous vein for a total treatment length of 56 cm and the glue volume of 3 cc. At the conclusion we assessed the saphenofemoral junction and it was patent, compressible with no evidence of deep venous thrombosis or any glue extrusion into the deep system. Manual pressure was held followed by dry sterile dressing and an Michael wrap to the proximal thigh. Patient was then taken recovery room with anticipated discharge home.
== END 2022-12-17 23:59 | disposition home or self-care (01) ==
PROVIDERS: PCP Internal Medicine; Referring Provider Surgery Trauma Surgery; Visit Provider Surgery Trauma Surgery
DX: I87.2 Venous insufficiency (chronic) (peripheral) (principal); E78.5 Hyperlipidemia, unspecified; I10 Essential (primary) hypertension; Z79.890 Hormone replacement therapy; E07.9 Disorder of thyroid, unspecified
CPT/HCPCS: 36415; 36482; 80048; 85027; C1894; J7040

== ENCOUNTER → 2022-12-23 | Outpatient (CLI) | payer MEDICARE, OTHER, SELFPAY ==
--- NOTE | 2022-12-23 09:33 | VDLE_ITS ---
Reason For Study: Left leg pain RIGHT LEFT CFV is compressible, spontaneous, phasic, CFV is compressible, spontaneous, phasic, competent and demonstrates normal competent, and demonstrates normal augmentation. augmentation. Procedure FV is compressible, spontaneous, phasic, This is a venous duplex using B-mode, color competent and demonstrates normal flow and spectral Doppler. augmentation. Exam performed in department. POP V is compressible, spontaneous, phasic, A preliminary report was called and/or faxed competent and demonstrates normal to Sangeeta JAILOR. augmentation. PTV is compressible. Acute deep vein thrombosis is noted in the T/P Trunk and PeroV prox. It is dilated and NONCOMPRESSIBLE. GSV throughout is occluded s/p venaseal 12/17/2022. Varicose veins noted in prox thigh and at knee are noncompressible. VL/Venous Duplex US, Unilateral Interpretation Summary Acute deep vein thrombosis is noted in the left tibio-peroneal trunk vein and p eroneal vein. Great saphenous vein occluded consistent with recent chemical ablation Ordering Physician: Uma Brooks Referring Physician: Meredith Briggs M.D. Performed By: Pamela Fay RVT
== END | disposition home or self-care (01) ==
LOC: CVS 09:33
PROVIDERS: PCP Internal Medicine; Referring Provider Physician Assistant; Visit Provider Physician Assistant
DX: I83.12 Varicose veins of left lower extremity with inflammation (principal)
CPT/HCPCS: 93971

== ENCOUNTER → 2022-12-25 | Outpatient (CLI) | payer MEDICARE, OTHER, SELFPAY ==
[2022-12-25 18:52] LABS: Hemoglobin 14.1 g/dL (12.0-15.0)
== END | disposition home or self-care (01) ==
LOC: LAB 16:08
PROVIDERS: PCP Internal Medicine; Visit Provider Physician Assistant
DX: R53.83 Other fatigue (principal)
CPT/HCPCS: 36415; 85018

== ENCOUNTER 2022-12-27 16:43 | Emergency (ER) | payer MEDICARE, OTHER, SELFPAY ==
[2022-12-27 16:44] VITALS: BP 202/86; PULSE 84; RESP 18; TEMP 36.4; O2SAT 100; BMI 36.8
[2022-12-27 16:56] VITALS: PULSE 71; RESP 15; O2SAT 97
--- NOTE | 2022-12-27 17:11 | EX.ED.DYSGE1 ---
HPI <SUJIT Handy - Last Filed: 12/27/22 17:51> History of Present Illness Chief Complaint: Hypertension Narrative Narrative: Patient presenting today due to concerns for elevated blood pressure. She reports that she has been checking her blood pressure regularly after recently being diagnosed with a DVT in her left lower extremity, she is on Xarelto for this. Her blood pressure was elevated, around 150s and the systolic. She also reports that she has intermittent heart palpitations and has been worked up for this with a recent heart monitor that showed PVCs. She did have a few heart palpitations earlier today but reports that those went away. She denies any fever, chills, chest pain, shortness of breath, headache, nausea, and visual changes. Patient also reports pain and stiffness to her left knee, she was sitting at a stool while making something in the kitchen and when she got off the stool she noticed that her knee was stiff and painful. No trauma or injury to her knee. PFSH <SUJIT Handy - Last Filed: 12/27/22 17:51> [facility] Medical History Abnormal PFTs (pulmonary function tests) Adenocarcinoma Adenocarcinoma of salivary gland Arthritis Back pain Bilateral carotid artery stenosis Bilateral carotid bruits Cardiac murmur Encounter to establish care Essential hypertension Fibromyalgia Hearing problem Heart disease Hemorrhoids Hives HLD (hyperlipidemia) Hypothyroidism Knee pain Leg edema, left Lipodermatosclerosis of left lower extremity Obesity PATEL (obstructive sleep apnea) Osteoarthritis Osteopenia Osteoporosis Palpitations Psoriasis Psoriatic arthritis SOB (shortness of breath) Thyroid disease Tiredness Tumors Urinary tract infection Venous insufficiency Venous insufficiency of both lower extremities Home Medications levothyroxine 75 mcg tablet 75 mcg PO DAILY 01/27/13 [History Last Taken 12/17/22] ascorbate calcium (vitamin C) 500 mg tablet 500 mg PO DAILY 01/01/19 [History Last Taken Unknown] multivitamin 1 cap PO DAILY 01/01/19 [History Last Taken Unknown] omega-3 fatty acids 1,000 mg capsule (Fish Oil Concentrate) 1,000 mg PO DAILY 01/01/19 [History Last Taken Unknown] elderberry fruit 200 mg capsule 1,000 mg PO DAILY 11/11/20 [History Last Taken Unknown] coenzyme Q10 400 mg capsule (Co Q-10) 800 mg PO DAILY 09/25/21 [History Last Taken Unknown] lutein 20 mg capsule 20 mg PO DAILY 09/25/21 [History Last Taken Unknown] triamcinolone acetonide 0.1 % topical cream 1 applic topical DAILY PRN rash 09/25/21 [History Last Taken 12/16/22] vitamin B complex (Complex B-100 tablet,extended release) 1 tab PO DAILY 09/25/21 [History Last Taken Unknown] zinc oxide-zinc citrate 50 mg tablet mg PO 09/25/21 [History Last Taken Unknown] cholecalciferol (vitamin D3) 125 mcg (5,000 unit) tablet 125 mcg PO DAILY 12/15/21 [History Last Taken Unknown] clobetasol 0.05 % scalp solution 1 applic topical DAILY 12/15/21 [History Last Taken Unknown] losartan 100 mg tablet 100 mg PO DAILY #90 tabs 03/18/22 [Rx Last Taken Unknown] aspirin 81 mg tablet,delayed release (Adult Aspirin Regimen) 81 mg PO DAILY 11/16/22 [History Last Taken Unknown] phytonadione (vitamin K1) 100 mcg tablet 100 mcg PO DAILY 11/16/22 [History Last Taken Unknown] quercetin 500 mg capsule mg PO QDAY 11/16/22 [History Last Taken Unknown] vitamin E (dl, acetate) 180 mg (400 unit) capsule 180 mg PO DAILY 11/16/22 [History Last Taken Unknown] apremilast 30 mg tablet (Otezla) 30 mg PO BID 12/23/22 [History Last Taken Unknown] rivaroxaban 15 mg (42)-20 mg (9) tablets in a starter pack (Xarelto DVT-PE Treatment 30-Day Starter) See Rx Instructions PO .COMPLEX #51 tabs 12/23/22 [Rx Last Taken Unknown] rivaroxaban 20 mg tablet (Xarelto) 20 mg PO DAILY #30 tabs 12/23/22 [Rx Last Taken Unknown] Allergy/AdvReac Type Severity Reaction Status Date / Time atorvastatin AdvReac Severe Myalgias Verified 12/27/22 16:44 and elevated CK turmeric AdvReac Intermediate Diarrhea Verified 12/27/22 16:44 adhesive tape AdvReac Mild whelts Verified 12/27/22 16:44 [place]'s wort AdvReac Vomiting Verified 12/27/22 16:44 [[place]'s Wort] Family History Mother Hypertension Arthritis Dementia Abdominal aortic aneurysm (AAA) CHF (congestive heart failure) Sister Asthma Hypertension Diabetes Daughter Asthma Heart disease Sister Arthritis Diabetes Thyroid disorder Other Psoriasis Surgical History H/O total knee replacement History of cataract surgery History of knee replacement procedure of left knee History of lumpectomy of right breast History of repair of right rotator cuff History of tubal ligation History of vaginal hysterectomy Social History adopted: No household members: none housing: house number of children: 3 current occupational status: retired pets and animals: No leisure activities: other history of recent travel: No sexually active: No Smoking Status: Never smoker second hand exposure: No alcohol intake: never substance use type: does not use well-balanced diet: daily or most days caffeine: Yes eating out: rarely or never during the past year weight has: remained stable justo/jew: Druze seatbelt use: always do you feel safe at home: Yes ROS <SUJIT Handy - Last Filed: 12/27/22 17:51> ROS ED Constitutional Constitutional ED: Denies chills or fever(s) Eyes Eyes: Denies change in vision Cardiovascular Cardiovascular: Reports palpitations; Denies chest pain or racing heartbeat Respiratory/Chest Respiratory/Chest: Denies cough or dyspnea Gastrointestinal Gastrointestinal: Denies abdominal pain, nausea or vomiting Musculoskeletal Musculoskeletal: Reports arthralgias; Denies myalgias Neurologic Neurologic: Denies headache(s), paresthesias or weakness EXAM <SUJIT Handy - Last Filed: 12/27/22 17:51> Physical Exam Const Vital Signs: 12/27/22 16:44 12/27/22 16:56 12/27/22 16:58 Temperature 97.6 F L Temperature Source Temporal Pulse Rate 84 71 Respiratory Rate 18 15 Respiratory Effort Normal Respiratory Pattern Normal Blood Pressure 202/86 H Blood Pressure Mean 124 Pulse Ox 100 97 Oxygen Delivery Method Room Air Positive well nourished, well developed and no apparent distress General Appearance ED: well developed HEENT Reports normocephalic and head/scalp atraumatic Mouth ED: Yes moist mucous membranes normal Eyes PERRL and EOMs intact bilaterally Neck full ROM and supple Chest Wall inspection of chest normal Resp normal respiratory effort and clear to auscultation bilaterally Cardio regular rate and regular rhythm GI soft to palpation, non-tender, non-distended and no masses Back/Spine normal ROM and normal to inspection Extremity normal to inspection and full ROM Extremity Narrative: No asymmetric swelling, no joint effusion to the left knee or erythema, no signs of septic joint, no pain to palpation to the left knee. Extensor mechanism intact. General Extremety ED: Negative for edema General Extremity: Negative for edema Neuro oriented x3, CN's II-XII intact bilaterally, moves all extremities, no focal motor deficits and no sensory deficits noted Sensorium / Orientation: awake and alert Psych mental status grossly normal and thought process normal Skin no rashes or lesions noted and no wounds <Dr. Richi Lama MD - Last Filed: 12/27/22 17:47> Physical Exam Const Vital Signs: 12/27/22 16:44 12/27/22 16:56 12/27/22 16:58 Temperature 97.6 F L Temperature Source Temporal Pulse Rate 84 71 Respiratory Rate 18 15 Respiratory Effort Normal Respiratory Pattern Normal Blood Pressure 202/86 H Blood Pressure Mean 124 Pulse Ox 100 97 Oxygen Delivery Method Room Air MDM <SUJIT Handy - Last Filed: 12/27/22 17:51> [facility] Narrative Medical decision making narrative: Patient presenting due to concerns for elevated blood pressure. Initially, blood pressure was 202/86, this did go down to 154/72. She is well-appearing and in no acute distress. She is not complaining of any symptoms with this. She did report having some left knee stiffness after sitting on a stool while pickling eggs this afternoon. She does not have any swelling or pain to palpation to the knee, no injury to necessitate need for imaging. She did have some palpitations earlier today, she has been worked up for that by her PCP and had a recent Holter monitor that showed PVCs. She is not currently having any palpitations. EKG was obtained here and is normal sinus rhythm. Patient will be discharged home in stable condition and is to follow-up with PCP and keep track of her blood pressure. She is comfortable with plan. I have personally performed a face to face assessment of the patient and have reviewed the DES Note. I performed a substantive portion of the visit including all aspects of the following. My quiñones findings include: History is 82-year-old female history of hypertension has had elevated blood pressure. Recent vein surgery on her leg and then developed a DVT for which she is on blood thinners now. Denies headache or chest pain. Exam is [well-appearing 82-year-old female. Vital signs stable blood pressure initially is 202/86. While I am examining her in the room is 154/72. HEENT exam unremarkable. Lungs clear. Heart regular rhythm no murmur. Abdomen soft nontender. Moving all 4 extremities. She is awake and alert. Answering questions following commands. No focal motor deficits.] Medical Decision Making [patient with acute on chronic hypertension. She was not given any medications. Blood pressure is improved. She will be discharged home with outpatient follow-up.] Other additions or changes: [None] EKG Initial EKG: Comments: 61 bpm, normal sinus rhythm, no ST elevation, reviewed and interpreted by attending ED physician <Dr. Richi Lama MD - Last Filed: 12/27/22 17:47> [facility] MDM Narrative Medical decision making narrative: I have personally performed a face to face assessment of the patient and have reviewed the DES Note. I performed a substantive portion of the visit including all aspects of the following. My quiñones findings include: History is 82-year-old female history of hypertension has had elevated blood pressure. Recent vein surgery on her leg and then developed a DVT for which she is on blood thinners now. Denies headache or chest pain. Exam is [well-appearing 82-year-old female. Vital signs stable blood pressure initially is 202/86. While I am examining her in the room is 154/72. HEENT exam unremarkable. Lungs clear. Heart regular rhythm no murmur. Abdomen soft nontender. Moving all 4 extremities. She is awake and alert. Answering questions following commands. No focal motor deficits.] Medical Decision Making [patient with acute on chronic hypertension. She was not given any medications. Blood pressure is improved. She will be discharged home with outpatient follow-up.] Other additions or changes: [None] History & Record Review Discussion w/independent historian: Patient and Family Additional record(s) reviewed:: Prior inpatient record, Prior outpatient record, Prior ED visit and Prior labs Discharge Plan Triage Chief Complaint: Hypertension Other Complaint: Lower Extremity Injury ED Midlevel Provider: Kirstin Paez ED Provider: Richi Lama Dx/Rx/DC Orders Clinical Impression: History of palpitations, Knee pain, left, Hypertension Instructions: ED Hypertension, Established Prescriptions: No Action multivitamin capsule capsule 1 cap PO DAILY ascorbate calcium (vitamin C) 500 mg tablet 500 mg PO DAILY omega-3 fatty acids [Fish Oil Concentrate] 1,000 mg capsule 1,000 mg PO DAILY elderberry fruit 200 mg capsule 1,000 mg PO DAILY Complex B-100 Tablet Extended Release 1 tab PO DAILY zinc oxide-zinc citrate 50 mg tablet PO coenzyme Q10 [Co Q-10] 400 mg capsule 800 mg PO DAILY triamcinolone acetonide 0.1 % cream 1 applic topical DAILY PRN (Reason: rash) lutein 20 mg capsule 20 mg PO DAILY Rx Instructions: give with meal/snack cholecalciferol (vitamin D3) 125 mcg (5,000 unit) tablet 125 mcg PO DAILY clobetasol 0.05 % solution 1 applic topical DAILY losartan 100 mg tablet 100 mg PO DAILY Qty: 90 3RF aspirin [Adult Aspirin Regimen] 81 mg tablet,delayed release (DR/EC) 81 mg PO DAILY phytonadione (vitamin K1) 100 mcg tablet 100 mcg PO DAILY vitamin E (dl, acetate) 180 mg (400 unit) capsule 180 mg PO DAILY quercetin 500 mg capsule PO QDAY levothyroxine 75 MCG tablet 75 mcg PO DAILY Patient Comments: thyroid Xarelto DVT-PE Treat 30d Start 15 mg (42)- 20 mg (9) tablets,dose pack See Rx Instructions PO .COMPLEX Qty: 51 0RF Rx Instructions: take one-15 mg tablet twice daily for 21 days, then one-20 mg tablet once daily; must take with meal/food PO Xarelto 20 mg tablet 20 mg PO DAILY Qty: 30 0RF Rx Instructions: must administer with evening meal Primary Care Provider: Meredith Briggs Referrals: Meredith Briggs MD [Primary Care Provider] - 5-7 Days Activity Restrictions/Additional Instructions: Follow-up with your PCP and return for any worsening of your symptoms. Disposition Disposition: Home, Self Care
[2022-12-27 18:08] VITALS: RESP 16
== END 2022-12-27 18:10 | disposition home or self-care (01) ==
PROVIDERS: Emergency Provider Emergency Medicine; PCP Internal Medicine; Visit Provider Emergency Medicine
DX: I10 Essential (primary) hypertension (principal); I82.402 Acute embolism and thrombosis of unspecified deep veins of left lower extremity; E78.5 Hyperlipidemia, unspecified; Z79.01 Long term (current) use of anticoagulants; Z98.890 Other specified postprocedural states; M25.562 Pain in left knee
CPT/HCPCS: 93005; 99283; A4216

== ENCOUNTER → 2023-01-04 | Outpatient (CLI) | payer MEDICARE, OTHER, SELFPAY ==
--- NOTE | 2023-01-04 12:38 | VDLE_ITS ---
Reason For Study: LLE Swelling RIGHT LEFT CFV is compressible, spontaneous, phasic, GSV throughout is occluded s/p venaseal competent and demonstrates normal 12/17/2022. augmentation. Varicose veins noted in prox thigh and at Procedure knee are noncompressible. This is a venous duplex using B-mode, color CFV is compressible, spontaneous, phasic, flow and spectral Doppler. competent, and demonstrates normal Exam performed in department. augmentation. The exam was diagnostic. FV is compressible, spontaneous, phasic, A preliminary report was called and/or faxed competent and demonstrates normal to Dr. Briggs's office. augmentation. POP V is compressible, spontaneous, phasic, competent and demonstrates normal augmentation. Acute deep vein thrombosis is noted in the T/P Trunk. It is dilated and NONCOMPRESSIBLE. PTV is compressible. LT PerV is compressible. VL/Venous Duplex US, Unilateral Interpretation Summary Acute deep vein thrombosis is noted in the left tibio-peroneal trunk. Resolution of previously visualize peroneal vein thrombus Left great saphenous vein occluded consistent with recent ablation Ordering Physician: Meredith Briggs Referring Physician: Meredith Briggs Performed By: Hector Stanford RVT
== END | disposition home or self-care (01) ==
LOC: CVS 12:37
PROVIDERS: PCP Internal Medicine; Referring Provider Internal Medicine; Visit Provider Internal Medicine
DX: R06.02 Shortness of breath (principal); I82.409 Acute embolism and thrombosis of unspecified deep veins of unspecified lower extremity; M79.89 Other specified soft tissue disorders
CPT/HCPCS: 93971

== ENCOUNTER → 2023-02-09 | Outpatient (CLI) | payer MEDICARE, OTHER, SELFPAY ==
--- NOTE | 2023-02-09 12:46 | VDLE_ITS ---
Reason For Study: pain RIGHT LEFT CFV is compressible, spontaneous, phasic, CFV is compressible, spontaneous, phasic, competent and demonstrates normal competent, and demonstrates normal augmentation. augmentation. Procedure FV is compressible, spontaneous, phasic, This is a venous duplex using B-mode, color competent and demonstrates normal flow and spectral Doppler. augmentation. Exam performed in department. POP V is compressible, spontaneous, phasic, The exam was diagnostic. competent and demonstrates normal augmentation. PTV is compressible. LT PerV is compressible. T/P Trunk ia partially compressible. Improvement from previous study done 01/04/23. GSV is occluded s/p venaseal 12/17/22. VL/Venous Duplex US, Unilateral Interpretation Summary Acute deep vein thrombosis is noted in the left tibio-peroneal trunk, improveme nt from previous study. Left great saphenous vein occluded consistent with recent ablation Ordering Physician: Uma Brooks Performed By: Rayshawn Prater RVT
== END | disposition home or self-care (01) ==
LOC: CVS 12:46
PROVIDERS: PCP Internal Medicine; Referring Provider Physician Assistant; Visit Provider Physician Assistant
DX: R06.02 Shortness of breath (principal); M79.606 Pain in leg, unspecified; M79.89 Other specified soft tissue disorders; Z48.812 Encounter for surgical aftercare following surgery on the circulatory system
CPT/HCPCS: 93971

== ENCOUNTER → 2023-02-10 | Outpatient (CLI) | payer MEDICARE, OTHER, SELFPAY ==
--- OUTSIDE RECORDS SUMMARY | 2023-02-10 16:11 | XMS RPT_ITS | CCD ---
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 Name Role Phone Connie Machado Unavailable Unavailable Pravin Rae Unavailable Unavailable UNKNOWN, PCP Unavailable Unavailable Ritchie Hanson Unavailable Unavailable Ritchie Hanson Unavailable Unavailable Unavailable Allergies Allergy Classification Reported Allergen(s) Allergy Type Date of Onset Reaction(s) Facility Hydroxychloroquine (1 source) Hydroxychloroquine; Translations: [Plaquenil TABS] Drug [facility] Work Phone: [phone] (1 source) Adhesive Tape drug allergy 02-07-20 16 Rash [facility] Work Phone: (1 source) hydroxychloroquine Drug Allergy 02-07-20 16 Vision not as clear [facility] Work Phone: (1 source) [facility] drug allergy 02-07-20 16 GI Upset [facility] Work Phone: (1 source) Hydroxychloroquine; Translations: [Plaquenil TABS] Drug Allergy [facility] Work Phone: Medications Completed/Discontinued Medications Medication Drug Class(es) Dates Sig (Normalized) Sig (Original) acetaminophen 500 mg oral tablet (4 sources) Start: 06-26-2016 End: 12-08-2016 TYLENOL EXTRA STRENGTH 500 MG TABS as needed ACETAMINOPHEN [id number] Connie Machado Problems Active Problems Problem Classification Problem Date Documented Date Episodic/Chronic Cancer of head and neck (2 sources) Malignant tumor of hard palate; 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 Disorders of teeth and jaw (2 sources) Temporomandibular joint disorder; Translations: [Temporomandibular joint disorders, unspecified] Episodic Essential hypertension (1 source) Benign hypertension; Translations: [Essential (primary) hypertension] Onset: 02-07-2016 02-07-2016 Chronic Other nutritional; endocrine; and metabolic disorders (1 source) Obesity; Translations: [Obesity, unspecified] Onset: 03-17-2016 03-17-2016 Chronic Thyroid disorders (1 source) Hypothyroidism; Translations: [Hypothyroidism, unspecified] Onset: 02-07-2016 02-07-2016 Chronic Unclassified (3 sources) Body mass index (BMI) 38.0-38.9, adult; Translations: [Obstructive sleep apnea syndrome] Onset: 02-13-2016 04-03-2016 Chronic Past or Other Problems Problem Classification Problem Date Documented Da te Episodic/Chronic Other lower respiratory disease (1 source) Dyspnea; Translations: [Shortness of breath] Onset: 02-13-2016 02-13-2016 Episodic Unclassified (1 source) Pulmonary function studies abnormal; Translations: [Abnormal results of pulmonary function studies] Onset: 03-17-2016 03-17-2016 Episodic Unclassified (1 source) Ankle edema; Translations: [Localized edema] Onset: 02-13-2016 02-13-2016 Episodic Results Test Name Value Interpretation Reference Range Facil ity Vital Signs Date Time Vital Sign Value Performing Clinician Facility 09-24-2021 10:24-0400 Body height 152.4 cm Ritchie Hanson Work Phone[facility] Work Phone: 09-24-2021 10:24-0400 Body mass index (BMI) [Ratio] 39.17 kg/m2 Ritchie Hanson [facility] Work Phone: 09-24-2021 10:24-0400 Body surface area Derived from formula 1.87 m2 Ritchie Hanson Work Phone: [facility] [place] Work Phone: 09-24-2021 10:24-0400 Body temperature 96.6 [degF] Ritchie Hanson Work Phone: [facility] [place] Work Phone: 09-24-2021 10:24-0400 Body weight 90.97 kg Ritchie Hanson Work Phone: [facility] [place] Work Phone: 09-25-2020 12:55-0400 Body height 152.4 cm Ritchie Hanson Work Phone: [facility] [place] Work Phone: 09-25-2020 12:55-0400 Body mass index (BMI) [Ratio] 38.32 kg/m2 Ritchie Hanson Work Phone: [facility] [place] Work Phone: 09-25-2020 12:55-0400 Body surface area Derived from formula 1.85 m2 Ritchie Hanson Work Phone: [facility] [place] Work Phone: 09-25-2020 12:55-0400 Body temperature 96.8 [degF] Ritchie Hanson Work Phone: [facility] [place] Work Phone: 09-25-2020 12:55-0400 Body weight 88.99 kg Ricthie Hanson Work Phone: [facility] [place] Work Phone: 09-25-2020 12:55-0400 Respiratory rate 18 /min Ritchie Hanson Work Phone: [facility] [place] Work Phone: 12-08-2016 07:19-0400 BMI (Body Mass Index) 37.88 kg/m2 Connie Carter [facility] Work Phone: 12-08-2016 07:19-0400 Body Temperature 97.4 [degF] Connie Carter [facility] Work Phone: 12-08-2016 07:19-0400 BP Diastolic 70 mm[Hg] Connie Carter [facility] Work Phone: 12-08-2016 07:19-0400 BP Systolic 130 mm[Hg] Connie Carter [facility] Work Phone: 12-08-2016 07:19-0400 Height 152.4 cm Connie Carter [facility] Work Phone: 12-08-2016 07:19-0400 Pulse (Heart Rate) 70 /min Connie Machado [facility] Work Phone: 12-08-2016 07:19-0400 Respiratory Rate 18 /min Connie Carter [facility] Work Phone: 12-08-2016 07:19-0400 Weight 88 kg Connie Carter [facility] Work Phone: 04-03-2016 10:51-0500 BSA (Body Surface Area) 1.86 m2 Connie Carter [facility] Work Phone: 03-17-2016 09:02-0500 Body Temperature 97.52 [degF] Connie Carter [facility] Work Phone: 03-17-2016 09:02-0500 Height 152.4 cm Connie Carter [facility] Work Phone: 03-17-2016 09:02-0500 Weight 90.91 kg Connie Carter [facility] Work Phone: Encounters Encounter Date Encounter Type Care Provider Facility Start: 09-24-2021 Office outpatient vi sit 15 minutes Ritchie Hanson Work Phone: [facility] Work Phone: Start: 09-25-2020 Office outpatient vi sit 15 minutes Ritchie Hanson Work Phone: [facility] Work Phone: Start: 06-09-2017 Ambulatory [facility] Facility :[id number] Procedures Date Procedure Procedure Detail Performing Clinician Start: 06-26-2016 End: 06-26-2016 Follow Up Appt 6 months Maxx Stephens MD Start: 06-26-2016 End: 06-26-2016 JUANA Stephens MD Start: 04-03-2016 End: 04-03-2016 Follow Up Appt 3 months Edelmira booth PA-C Work Phone: Start: 04-03-2016 End: 04-03-2016 JUANA Orantes PA-C Work Phone: Start: 03-17-2016 End: 04-22-2016 Complete sleep workup (PSG,CPAP as indicated) & Follow up Woo Montes DO Work Phone: Start: 03-17-2016 End: 04-22-2016 Follow Up Appt 3 months Woo Montes DO Work Phone: Start: 03-17-2016 End: 04-22-2016 Titration with Follow up (pt not on cpap) Woo Montes DO Work Phone: Start: 03-05-2016 End: 03-06-2016 Referral to respiratory physician Maxx Stephens MD Start: 02-26-2016 End: 03-20-2016 Pulmonary Function Test - complete Maxx Stephens MD Start: 02-13-2016 End: 02-13-2016 Ecg routine ecg w/least 12 lds w/i&r Maxx Stephens MD Start: 02-13-2016 End: 02-26-2016 Echocardiography Maxx Stephens MD Start: 02-13-2016 End: 03-20-2016 Follow Up Appt 6 weeks Maxx Stephens MD Start: 02-13-2016 End: 02-13-2016 Follow Up Appt Other Maxx Stephens MD Start: 02-13-2016 End: 03-20-2016 MMM Mxax Stephens MD Start: 02-13-2016 End: 02-25-2016 Nuclear stress test -exercise Maxx bryan MD Start: 02-13-2016 End: 03-20-2016 Us abdominal real time w/image limited Maxx Stephens MD Plan of Treatment Date Care Activity Detail Author Start: 09-24-2021 [facility], Provider: Pravin Rae, Status: Pen, Time: 10:30 AM [facility]UV, Provider: Pravin Rae, Status: Pen, Time: 10:30 AM [facility] Work Phone: Start: 06-08-2017 End: 06-08-2017 Appointment Appointment [facility] Work Phone: Start: 01-05-2017 End: 01-05-2017 Appointment Appointment [facility] Work Phone: Start: 12-08-2016 End: 12-08-2016 [facility] Work Phone: Start: 12-08-2016 End: 12-08-2016 Follow Up Appt 6 months Follow Up Appt 6 months [facility] Work Phone: Start: 12-08-2016 End: 12-08-2016 Appointment Appointment [facility] Work Phone: Start: 09-09-2016 End: 09-09-2016 [facility] D[facility] Work Phone: Start: 09-09-2016 End: 09-09-2016 Follow Up Appt 3 months Follow Up Appt 3 months [facility] Work Phone: Start: 06-26-2016 End: 06-26-2016 Follow Up Appt 6 months Follow Up Appt 6 months [facility] Work Phone: Start: 06-26-2016 End: 06-26-2016 MMM MMM [facility] Work Phone: Start: 06-09-2016 End: 06-09-2016 [facility] Work Phone: Start: 06-09-2016 End: 06-09-2016 Follow Up Appt 3 months Follow Up Appt 3 months [facility] Work Phone: Start: 04-03-2016 End: 04-03-2016 Follow Up Appt 3 months Follow Up Appt 3 months [facility] Work Phone: Start: 04-03-2016 End: 04-03-2016 MMM MMM [facility] Work Phone: Start: 03-17-2016 End: 04-22-2016 Complete sleep workup (PSG,CPAP as indicated) & Follow up Complete sleep workup (PSG,CPAP as indicated) & Follow up [facility] Phone: Start: 03-17-2016 End: 04-22-2016 Follow Up Appt 3 months Follow Up Appt 3 months [facility] Work Phone: Start: 03-17-2016 End: 04-22-2016 Titration with Follow up (pt not on cpap) Titration with Follow up (pt not on cpap) [facility] Work Phone: Start: 03-05-2016 End: 03-05-2016 Pulmonary Referral Pulmonary Referral Woo Montes DO, [facility], [address], [address], [place], [address] [facility] Work Phone: Start: 02-26-2016 End: 02-26-2016 Pulmonary Function Test - complete Pulmonary Function Test - complete [facility] Phone: Start: 02-13-2016 End: 02-13-2016 Ecg routine ecg w/least 12 lds w/i&r EKG (In office) [facility] Phone: Start: 02-13-2016 End: 02-13-2016 Echocardiography Echocardiogram (complete) [facility] Phone: Start: 02-13-2016 End: 03-20-2016 Follow Up Appt 6 weeks Follow Up Appt 6 weeks [facility] Phone: Start: 02-13-2016 End: 02-13-2016 Follow Up Appt Other Follow Up Appt Other [facility] Phone: Start: 02-13-2016 End: 03-20-2016 MMM MMM [facility] Phone: Start: 02-13-2016 End: 02-13-2016 Nuclear stress test -exercise Nuclear stress test -exercise [facility] Phone: Start: 02-13-2016 End: 02-13-2016 Us abdominal real time w/image limited US Abdominal (aneurysm screening) [facility] Phone: Payers Date Payer Category Payer Policy ID Medicare [id number] Unknown Social History Date Type Detail Facility Alcohol Use (History) Alcohol Use (Histor y) [facility] Work Phone: History of Present illness Narrative 05-09-2021 Note Date & Type Note Facility 05-09-2021 History of Present illness Narrative 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 The patient does not have any symptoms related to that. 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 The patient does not have any symptoms related to that. [facility] Work Phone: Summary Purpose Family History No Family History Records FoundUnknown Family Member Name Dates Details Family history of hypothyroi dism: Multiple Family Members(V18.19, Z83.49) Status:Active Family history of arthritis: Multiple Family Members(V17.7, Z82.61) Status:Active Family history of hypertensi on: Multiple Family Members(V17.49, Z82.49) Status:Active Family history of malignant neoplasm: Multiple Family Members(V16.9, Z80.9) Status:Active Family history of psoriasis: Multiple Family Members(V19.4, Z84.0) Status:Active Unknown Family Member Name Dates Details Family history of hypothyroi dism: Multiple Family Members(V18.19, Z83.49) Status:Active Family history of arthritis: Multiple Family Members(V17.7, Z82.61) Status:Active Family history of hypertensi on: Multiple Family Members(V17.49, Z82.49) Status:Active Family history of malignant neoplasm: Multiple Family Members(V16.9, Z80.9) Status:Active Family history of psoriasis: Multiple Family Members(V19.4, Z84.0) Status:Active Advance Directives No Advanced Directives Records FoundNo Advanced Directives Records FoundNo Advanced Directives Records Found Chief Complaint Follow-up status post treatment of a hard palate cancerFollow-up status post treatment of a hard palate cancer Additional Source Comments INFORMATION SOURCE (unrecogn ized section and content) DATE CREATED AUTHOR AUTHOR'S ORGANIZ ATION 08/04/2017 [facility] DATE CREATED AUTHOR AUTHOR'S ORGANIZ ATION 10/01/2021 Quarterly FOR RECORDS PERTAINING TO PATIENTS WHO ARE OR HAVE BEEN ENROLLED IN A CHEMICAL DEPENDENCY/SUBSTANCEABUSE PROGRAM, SOME INFORMATION MAY BE OMITTED. This clinical summary was aggregated from multiple sources. Caution should be exercised in using it in the provision of clinical care. This summary normalizes information from multiple sources, and as a consequence, information in this document may materially change the coding, format and clinical context of patient data. In addition, data may be omitted in some cases. CLINICAL DECISIONS SHOULD BE BASED ON THE PRIMARY CLINICAL RECORDS. [employer] [facility]. provides no warranty or guarantee of the accuracy or completeness of information in this document.
== END | disposition home or self-care (01) ==
LOC: LABSPEC 15:38
PROVIDERS: PCP Internal Medicine; Referring Provider Physician Assistant Surgical; Visit Provider Physician Assistant Surgical
DX: N39.0 Urinary tract infection, site not specified (principal)
CPT/HCPCS: 87077; 87086; 87088; 87186

== ENCOUNTER → 2023-03-30 | Outpatient (CLI) | payer MEDICARE, OTHER, SELFPAY ==
[2023-03-30 09:52] LABS: Absolute Lymphocyte Count 0.99 X10^3/uL (0.83-4.51); Absolute Neutrophil Count 5.7 X10^3/uL (2.0-7.7); Basophil# 0.05 X10^3/uL; Basophil% 0.7 % (0-1); Eosinophil# 0.07 X10^3/uL; Eosinophils% 0.9 % (0-5); Hematocrit 44.2 % (37-47); Hemoglobin 13.8 g/dL (12.0-15.0); Lymphocyte # 0.99 X10^3/ul (0.83-4.51); Lymphocyte % 12.9 % (19-41); Mean Corp Hgb Conc 31.2 g/dL (32-36); Mean Corpuscular Hgb 28.6 pg (27.0-32.0); Mean Corpuscular Volume 91.7 fL (81-99); Mean Platelet Vol. 9.7 fl (6.2-12.0); Monocyte# 0.82 X10^3/uL; Monocyte% 10.7 % (0-10); NRBC Flagged by Analyzer 0 % (0-5); Neutrophil # 5.71 X10^3/uL (2.7-7.7); Neutrophil % 74.4 % (47-70); Platelet Count 306 K/mm3 (150-450); RBC Distribution Width CV 14.2 % (11.6-14.6); RBC Distribution Width SD 47.7 fl (35.1-43.9); Red Blood Count 4.82 M/mm3 (4.2-5.4); White Blood Count 7.7 K/mm3 (4.4-11.0)
[2023-03-30 10:20] LABS: Vitamin D,25 Hydroxy 64.9 ng/mL
[2023-03-30 10:58] LABS: ALB/GLOB Ratio 0.8 RATIO (0.9-2.4); AST(SGOT) 20 U/L (15-37); Alanine Aminotransfer ALT/SGPT 34 U/L (13-56); Albumin, Serum 3.2 g/dL (3.2-5.0); Alkaline Phosphatase 73 U/L (45-117); Anion Gap 4 (5-15); BUN 14 mg/dL (7-18); BUN/Creat Ratio 18.8 RATIO (10-20); Calcium,Total 8.9 mg/dL (8.5-10.1); Chloride 109 mmol/L (98-107); Cholesterol 189 mg/dL (200); Creatinine, Serum 0.75 mg/dL (0.55-1.02); EST Glomerular Filtration Rate 79 mL/min (>60); Est Glom Filt Rate - Afr Amer 96 mL/min (>60); Free T3 1.9 pg/mL (2.18-3.98); Globulin 3.8 g/dL (2.2-4.2); Glucose 97 mg/dL (74-106); High Density Lipoprotein 73 mg/dL; Sodium Level 140 mmol/L (136-145); T4 Free Direct 1.15 ng/dL (0.76-1.46); Thyroid Stim Hormone (TSH) 1.91 uIU/mL (0.358-3.74); Triglycerides 59 mg/dL; Very Low Density Lipoprotein 12 mg/dL (5-40)
== END | disposition home or self-care (01) ==
LOC: MTLAB 09:13
PROVIDERS: PCP Internal Medicine; Referring Provider Internal Medicine; Visit Provider Internal Medicine
DX: Z13.220 Encounter for screening for lipoid disorders (principal); I10 Essential (primary) hypertension; E03.9 Hypothyroidism, unspecified; G47.33 Obstructive sleep apnea (adult) (pediatric); E55.9 Vitamin D deficiency, unspecified
CPT/HCPCS: 36415; 80053; 80061; 82306; 84439; 84443; 84481; 85025

== ENCOUNTER → 2023-06-07 | Outpatient (CLI) | payer MEDICARE, OTHER, SELFPAY ==
--- NOTE | 2023-06-07 12:36 | BI_ITS ---
MAMMOGRAPHY - BILATERAL SCREENING REASON FOR EXAM: Female, 83 years old. Routine annual screening examination. PERTINENT HISTORY: Non-contributory. Remote right excisional breast biopsy. TECHNIQUE: Digital bilateral breast ivan (3D mammographic acquisition) in the CC and MLO projections. 2-D mediolateral oblique (MLO) and craniocaudad (CC) views of both breasts were obtained. CAD: Full Field Digital Mammography with Computer Added Detection was performed. COMPARISON: Comparison is made with prior study dated June 04, 2022 and June 03, 2021. FINDINGS: Breast Composition: The breasts are heterogeneously dense, which may obscure small masses. There are no dominant masses or suspicious calcifications. Stable asymmetry of the breast where the right breast is smaller than the left. No other significant abnormalities are identified. There has been no significant change since the prior study. BI/SCRN MAMM (CAD)W/IVAN BILAT IMPRESSION: Stable bilateral screening mammogram. Yearly follow-up mammogram recommended. (A) ASSESSMENT CATEGORY: BIRADS Category 2: Benign. A letter regarding these results will be sent to the patient by the facility within 30 days. Approximately 10% of breast cancers are not detected by mammography. A normal mammogram should not delay biopsy of a clinically suspicious abnormality. [id number] Electronically Signed: Charly Booker MD at 13:28 EDT ,
== END | disposition home or self-care (01) ==
LOC: OPBI 12:36
PROVIDERS: PCP Internal Medicine; Referring Provider Internal Medicine; Visit Provider Internal Medicine
DX: Z12.31 Encounter for screening mammogram for malignant neoplasm of breast (principal)
CPT/HCPCS: 77063; 77067

== ENCOUNTER → 2023-09-23 | Outpatient (CLI) | payer MEDICARE, OTHER, SELFPAY ==
[2023-09-23 15:20] LABS: Absolute Lymphocyte Count 1.12 X10^3/uL (0.83-4.51); Absolute Neutrophil Count 4.3 X10^3/uL (2.0-7.7); Basophil# 0.03 X10^3/uL; Basophil% 0.5 % (0-1); Eosinophil# 0.05 X10^3/uL; Eosinophils% 0.8 % (0-5); Hematocrit 44.7 % (37-47); Lymphocyte # 1.12 X10^3/ul (0.83-4.51); Lymphocyte % 17.8 % (19-41); Mean Corp Hgb Conc 31.3 g/dL (32-36); Mean Corpuscular Hgb 28.4 pg (27.0-32.0); Mean Corpuscular Volume 90.7 fL (81-99); Monocyte# 0.75 X10^3/uL; Monocyte% 11.9 % (0-10); NRBC Flagged by Analyzer 0 % (0-5); Neutrophil # 4.32 X10^3/uL (2.7-7.7); Neutrophil % 68.5 % (47-70); Platelet Count 303 K/mm3 (150-450); RBC Distribution Width CV 13.2 % (11.6-14.6); Red Blood Count 4.93 M/mm3 (4.2-5.4); White Blood Count 6.3 K/mm3 (4.4-11.0)
[2023-09-23 15:38] LABS: ALB/GLOB Ratio 0.9 RATIO (0.9-2.4); AST(SGOT) 18 U/L (15-37); Alanine Aminotransfer ALT/SGPT 24 U/L (13-56); Albumin, Serum 3.4 g/dL (3.2-5.0); Alkaline Phosphatase 83 U/L (45-117); Anion Gap 8 (5-15); BUN 20 mg/dL (7-18); BUN/Creat Ratio 25.3 RATIO (10-20); Calcium,Total 9.7 mg/dL (8.5-10.1); Chloride 109 mmol/L (98-107); Creatinine, Serum 0.79 mg/dL (0.55-1.02); EST Glomerular Filtration Rate 74 mL/min (>60); Est Glom Filt Rate - Afr Amer 89 mL/min (>60); Free T3 2.1 pg/mL (2.18-3.98); Globulin 3.7 g/dL (2.2-4.2); Glucose 92 mg/dL (74-106); Lipase 40 U/L (13-75); Potassium 3.8 mmol/L (3.5-5.1); Protein, Total 7.1 g/dL (6.4-8.2); Sodium Level 143 mmol/L (136-145); T4 Free Direct 1.09 ng/dL (0.76-1.46)
== END | disposition home or self-care (01) ==
LOC: MTLAB 12:31
PROVIDERS: PCP Internal Medicine; Referring Provider Internal Medicine; Visit Provider Internal Medicine
DX: R10.9 Unspecified abdominal pain (principal); E03.9 Hypothyroidism, unspecified
CPT/HCPCS: 36415; 80053; 83690; 84439; 84443; 84481; 85025

== ENCOUNTER → 2023-10-08 | Outpatient (CLI) | payer MEDICARE, OTHER, SELFPAY ==
--- NOTE | 2023-10-08 17:35 | CT_ITS ---
EXAM: CT Abdomen And Pelvis W/ Contrast Injection HISTORY: Right upper and mid abdominal pain -- Remote total vag hyster, ovaries remain TECHNIQUE: Routine protocol CT abdomen pelvis. IV Contrast: IV 100mL Isovue-370 . Oral Contrast: with. Sagittal and coronal images were reconstructed. RADIATION DOSAGE (If Supplied By Facility): CTDIvol = ( 12.20 ) mGy, DLP = ( 946.18 ) mGycm Individualized dose optimization techniques were used for this CT. COMPARISON: None. LIMITATIONS: None. FINDINGS: LOWER CHEST: Lung bases are clear. Moderate-sized hiatal hernia, cephalad extent of which is not entirely excluded on this scan. LIVER: Unremarkable. GALLBLADDER/BILE DUCTS: Unremarkable. PANCREAS: Unremarkable. SPLEEN: Unremarkable. ADRENAL GLANDS: 1.2 cm nodule left adrenal.. KIDNEYS / URETERS: Unremarkable. Small cyst right kidney, no follow-up needed. BOWEL / MESENTERY: Unremarkable. No bowel obstruction. APPENDIX: Not identified. PERITONEUM: No free air. No free fluid. VESSELS: Abdominal aorta is normal caliber. RETROPERITONEUM: Unremarkable. REPRODUCTIVE ORGANS: Uterus not identified surgically absent. BLADDER: Minimally distended. Small focus of air in the bladder presumably related to recent instrumentation. Cystocele/prolapse. ABDOMINAL WALL: Unremarkable. BONES: No acute abnormality. Degenerative changes lumbar spine with scoliosis OTHER: None. CT/Abdomen/Pelvis WITH Contrast IMPRESSION: No acute findings. Bladder prolapse/cystocele. Moderate-sized hiatal hernia. Incidental left adrenal nodule 1.2 cm. Consider follow-up CT or MRI adrenal protocol in 12 months. Electronically Signed: Hetal Galvin MD at 16:43 EDT ,
== END | disposition home or self-care (01) ==
LOC: CT 17:35
PROVIDERS: PCP Internal Medicine; Referring Provider Internal Medicine; Visit Provider Internal Medicine
DX: R10.11 Right upper quadrant pain (principal); R10.2 Pelvic and perineal pain
CPT/HCPCS: 74177; Q9967

== ENCOUNTER → 2023-12-02 | Outpatient (CLI) | payer MEDICARE, OTHER, SELFPAY ==
--- OUTSIDE RECORDS SUMMARY | 2023-12-02 13:03 | XMS RPT_ITS | CCD ---
Author Organization [facility] Care Team Providers Care Groundskeeper Name Role Phone Connie Machado Unavailable Unavailable Pravin Rea Unavailable Unavailable UNKNOWN, PCP Unavailable Unavailable Ritchie Hanson Unavailable Unavailable Ritchie Hanson Unavailable Unavailable Unavailable Allergies Allergy Classification Reported Allergen(s) Allergy Type Date of Onset Reaction(s) Facility Hydroxychloroquine (1 source) Hydroxychloroquine; Translations: [Plaquenil TABS] [facility] [phone] (1 source) Adhesive Tape drug allergy 02-07-20 16 Rash [facility] Work Phone: (1 source) hydroxychloroquine Drug Allergy 02-07-20 16 Vision not as clear [facility] Work Phone: (1 source) [facility] drug allergy 02-07-20 16 GI Upset [facility] Work Phone: (1 source) Hydroxychloroquine; Translations: [Plaquenil TABS] Drug Allergy [facility] Work Phone: Medications Completed/Discontinued Medications Medication Drug Class(es) Dates Sig (Normalized) Sig (Original) acetaminophen 500 mg oral tablet (4 sources) Start: 06-26-2016 End: 12-08-2016 TYLENOL EXTRA STRENGTH 500 MG TABS as needed ACETAMINOPHEN [id number] Connie Machado Tylenol 500 MG C APS Quantity: 0 Refills: 0 Ordered: 14-Dec-2012 DO Active alendronic acid 70 mg oral tablet (2 sources) Bisphosphonate Start: 02-07-2016 take 1 tablet by mouth every week ALENDRONATE SODIUM 70 MG TABS One tablet by mouth weekly ALENDRONATE SODIUM [id number] Edelmira Jin RN Fosamax 70 MG Or al Tablet Quantity: 0 Refills: 0 Ordered: 23-May-2014 DO Active amLODIPine 5 mg oral tablet (4 sources) Dihydropyridine Calcium Channel Russell Start: 02-07-2016 take 1 tablet by mouth once daily AMLODIPINE BESYLATE 5 MG TABS One half tablet by mouth daily AMLODIPINE BESYLATE [id number] Edelmira Orantes PA-C Norvasc 5 MG Ora l Tablet Quantity: 0 Refills: 0 Ordered: 24-May-2013 DO Active ascorbic acid 500 mg oral tablet (5 sources) Start: 02-07-2016 End: 03-17-2016 take 1 tablet by mouth once daily ASCORBIC ACID 500 MG TABS One tablet by mouth daily ASCORBIC ACID [id number] Maxx Stephens MD [facility] Vitamin C 50 0 MG Oral Tablet Quantity: 0 Refills: 0 Ordered: 14-Dec-2012 DO Active [facility] Vitamin C 50 0 MG Oral Tablet Quantity: 0 Refills: 0 Ordered: 14-Dec-2012 DO Active atorvastatin 20 mg oral tablet (1 source) HMG-CoA Reductase Inhibitor Start: 12-18-2019 take 1 tablet by mouth once daily at bedtime Atorvastatin Calcium 20 MG Oral Tablet TAKE 1 TABLET BY MOUTH EVERY DAY AT BEDTIME Quantity: 90 Refills: 0 Ordered: 18-Mar-2020 DO Start : 18-Dec-2019 Active calcium carbonate 1250 mg / cholecalciferol 125 unt oral tablet (2 sources) Vitamin D Calcium 500 + D 500-125 MG-UNIT Oral Tablet Quantity: 0 Refills: 0 Ordered: 14-Dec-2012 DO Active calcium carbonate / vitamin D (1 source) Start: 02-13-2016 take 1 tablet by mouth once daily CALCIUM 600+D 600-200 MG-UNIT TABS One tablet by mouth daily CALCIUM CARBONATE-VITAMIN D [id number] Maxx Stephens MD celecoxib 200 mg oral capsule (4 sources) Nonsteroidal Anti-inflammatory Drug Start: 02-07-2016 End: 09-09-2016 take 1 tablet by mouth once daily CELEBREX 200 MG CAPS One tablet by mouth daily (on hold) CELECOXIB [id number] Connie Machado CeleBREX 200 MG Oral Capsule Quantity: 0 Refills: 0 Ordered: 24-May-2013 DO Active cholecalciferol 2000 unt oral tablet (3 sources) Vitamin D Start: 02-07-2016 take 1 tablet by mouth once daily VITAMIN D 2000 UNIT TABS One tablet by mouth daily CHOLECALCIFEROL [id number] Edelmira Jin RN RA Vitamin D-3 5 0 MCG (1999) Oral Capsule Quantity: 0 Refills: 0 Ordered: 14-Dec-2012 DO Active CYANOCOBALAMIN-METHYLCOBALAM IN SUBL (1 source) Start: 12-08-2016 take 1 tablet by mouth once daily ABANEU-SL SUBL One tablet by mouth daily CYANOCOBALAMIN-METHYLCOBALAMIN SUBL [id number] Connie Machado folic acid 1 mg oral tablet (3 sources) Start: 02-07-2016 take 2 tablets by mouth once daily FOLIC ACID 1 MG TABS Two tablets by mouth daily FOLIC ACID [id number] Edelmira Jin RN Folic Acid 1 MG Oral Tablet Quantity: 0 Refills: 0 Ordered: 24-May-2013 DO Active hydroCHLOROthiazide 25 mg oral tablet (2 sources) Thiazide Diuretic Start: 02-16-2020 take 1 tablet by mouth once daily hydroCHLOROthiazide 25 MG Oral Tablet Take 1 (ONE) tablet daily Quantity: 90 Refills: 0 Ordered: 17-Sep-2020 DO Start : 16-Feb-2020 Active hydroCHLOROthiazide 25 mg / losartan potassium 100 mg oral tablet (3 sources) Thiazide Diuretic, Angiotensin 2 Receptor Russell Start: 02-07-2016 take 1 tablet by mouth once daily LOSARTAN POTASSIUM-HCTZ 100-25 MG TABS One tablet by mouth daily LOSARTAN POTASSIUM-HCTZ [id number] Edelmira Jin RN Hyzaar 100-25 MG Oral Tablet Quantity: 0 Refills: 0 Ordered: 14-Dec-2012 DO Active ibuprofen 200 mg oral tablet (1 source) Nonsteroidal Anti-inflammatory Drug Start: 12-08-2016 MOTRIN IB 200 MG TABS 2 tablets every six hours as needed IBUPROFEN [id number] Connie Machado Start: 12-08-2016 MOTRIN IB 200 MG TABS 2 tablets every six hours as needed IBUPROFEN [id number] Connie Machado loratadine 10 mg oral tablet (1 source) Start: 12-08-2016 take 1 tablet by mouth once daily ALLERGY 10 MG TABS One tablet by mouth daily LORATADINE [id number] Connie Machado Start: 12-08-2016 take 1 tablet by leola th once daily ALLERGY 10 MG TABS One tablet by mouth daily LORATADINE [id number] Connie Machado losartan potassium 100 mg oral tablet (2 sources) Angiotensin 2 Receptor Russell Start: 02-16-2020 take 1 tablet by mouth once daily Losartan Potassium 100 MG Oral Tablet Take 1 (ONE) tablet by mouth daily Quantity: 90 Refills: 0 Ordered: 17-Sep-2020 DO Start : 16-Feb-2020 Active methotrexate 2.5 mg oral tablet (2 sources) Folate Analog Metabolic Inhibitor Start: 02-07-2016 take 6 tablets by mouth once METHOTREXATE 2.5 MG TABS 6 tablets by mouth every Wednesday METHOTREXATE SODIUM [id number] Edelmira Jin RN Methotrexate Sod ium (PF) 25 MG/ML SOLN Quantity: 0 Refills: 0 Ordered: 24-May-2013 DO Active Milltrium Senior Oral Tablet (2 sources) Milltrium Senior Oral Tablet Quantity: 0 Refills: 0 Ordered: 14-Dec-2012 DO Active MULTIPLE VITAMINS-MINERALS (1 source) Start: 06-26-2016 take 1 tablet by mouth once daily CENTRUM SILVER ULTRA WOMENS TABS One tablet by mouth daily MULTIPLE VITAMINS-MINERALS [id number] Maxx Stephens MD MULTIPLE VITAMINS-MINERALS (2 sources) Start: 02-07-2016 End: 03-17-2016 take 1 tablet by mouth once daily CENTRUM SILVER TABS One tablet by mouth daily MULTIPLE VITAMINS-MINERALS [id number] Yvonne Palomino LPN Start: 02-07-2016 take 1 tablet by leola th once daily CENTRUM SILVER TABS One tablet by mouth daily MULTIPLE VITAMINS-MINERALS [id number] Edelmira Jin RN OMEGA-3 FATTY ACIDS CPDR (2 sources) Start: 02-07-2016 End: 03-17-2016 take 1 tablet by mouth once daily OMEGA 3 CPDR One tablet by mouth daily OMEGA-3 FATTY ACIDS CPDR [id number] Yvonne Palomino KATHRINE Start: 02-07-2016 take 1 tablet by leola th once daily OMEGA 3 CPDR One tablet by mouth daily OMEGA-3 FATTY ACIDS CPDR [id number] Edelmira Jin RN oxygen (2 sources) Start: 02-07-2016 OXYGEN 2L NC a t night OXYGEN Edelmira Jin RN Start: 02-07-2016 End: 06-26-2016 OXYGEN 2L NC at night OXYGEN Maxx Stephens MD predniSONE 10 mg oral tablet (1 source) Corticosteroid Start: 02-07-2016 take 1 tablet by mouth once daily as needed PREDNISONE 10 MG TABS One tablet by mouth daily as needed PREDNISONE [id number] Edelmira Jin RN tacrolimus 0.001 mg/mg topical ointment (1 source) Calcineurin Inhibitor Immunosuppressant Start: 02-07-2016 PROTOPIC 0.1 % OINT As Directed TACROLIMUS [id number] Edelmira Jin RN levothyroxine sodium 0.075 mg oral tablet (3 sources) l-Thyroxine Start: 02-07-2016 take 1 tablet by mouth once daily LEVOTHYROXINE SODIUM 75 MCG TABS One tablet by mouth daily LEVOTHYROXINE SODIUM [id number] Edelmira Jin RN Levothyroxine So dium 75 MCG Oral Tablet Quantity: 0 Refills: 0 Ordered: 14-Dec-2012 DO Active traMADol hydrochloride 50 mg oral tablet (4 sources) Opioid Agonist Start: 02-07-2016 End: 03-17-2016 TRAMADOL HCL 50 MG TABS Two tablets by twice daily as needed TRAMADOL HCL [id number] Edelmira Jin RN Ultram 50 MG Ora l Tablet Quantity: 0 Refills: 0 Ordered: 14-Dec-2012 DO Active triamcinolone acetonide 0.25 mg/ml topical cream (3 sources) Corticosteroid Start: 02-07-2016 TRIAMCINOLONE ACETONIDE 0.025 % CREA As Directed TRIAMCINOLONE ACETONIDE [id number] Edelmira Jin RN Start: 06-16-2015 Triamcinolone Acetonide 0.1 % External Cream APPLY TO THE AFFECTED AREA(S) 3XDAILY NEEDED FOR RASH/ITCHING Quantity: 15 Refills: 0 Ordered: 16-Jun-2015 DO Start : 16-Jun-2015 Active Triple Livingston Complex Oral Ca psule Delayed Release (2 sources) Triple Livingston Com plex Oral Capsule Delayed Release Quantity: 0 Refills: 0 Ordered: 14-Dec-2012 DO Active Problems Active Problems Problem Classification Problem Date [...] Results Test Name Value Interpretation Reference Range Facility Established Visit (Otolaryng ology)on 09-24-2021 Established Visit (Otolaryngology) Diagnoses/Problems 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 The likelihood of tumor recurrence is probably 0. I will see her on a as needed basis. Provider Impressions No obvious evidence of recurrence of the previously treated hard palate low-grade adenocarcinoma. The likelihood of tumor recurrence is probably 0. I will see her on a as needed basis. 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 The patient does not have any symptoms related to that. 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) Family History Family history of arthritis (V17.7) (Z82.61) Family history of hypertension (V17.49) (Z82.49) Family history of hypothyroidism (V18.19) (Z83.49) Family history of malignant neoplasm (V16.9) (Z80.9) Family history of psoriasis (V19.4) (Z84.0) Social History Alcohol Use (History) Never smoker Allergies Plaquenil TABS Recorded By: Mariposa Rabago; 12/14/2012 12:00:25 PM No Known Environmental Allergies Recorded By: Mariposa Rabago; 12/14/2012 12:00:25 PM No Known Food Allergies Recorded By: Mariposa Rabago; 05/24/2013 9:34:49 AM Current Meds Medication NameInstruction Calcium 500 + D 500-125 MG-UNIT Oral Tablet [facility] Vitamin C 500 MG Oral Tablet Folic Acid 1 MG Oral Tablet hydroCHLOROthiazide 25 MG Oral TabletTake 1 (ONE) tablet daily Hyzaar 100-25 MG Oral Tablet Levothyroxine Sodium 75 MCG Oral Tablet Losartan Potassium 100 MG Oral TabletTake 1 (ONE) tablet by mouth daily Milltrium Senior Oral Tablet Norvasc 5 MG Oral Tablet RA Vitamin D-3 50 MCG (2000 UT) Oral Capsule Triamcinolone Acetonide 0.1 % External CreamAPPLY TO THE AFFECTED AREA(S) 3XDAILY NEEDED FOR RASH/ITCHING Triple Livingston Complex Oral Capsule Delayed Release Tylenol 500 MG CAPS Ultram 50 MG Oral Tablet Vitals Vital Signs Recorded: [id number] 10:24AM Gqvvnrdgduj22.6 F Height5 ft Cjuarl867 lb 9 oz BMI Effiudsnkt29.17 kg/m2 BSA Calculated1.87 Tobacco Useb) No PHQ-2 #1. Over the last 2 weeks have you felt down, depressed or hopeless? (If yes, answer PHQ-9 below)No PHQ-2 #2. Over the last 2 weeks have you felt little interest or pleasure in doing things? (If yes, answer PHQ-9 below)No Falls Screening (Age 18+)a) No falls within the last year Physical Exam On examination the oral cavity shows no evidence of any worrisome lesions. There is a very small nodularity just to the left of the midline on the hard palate just adjacent to the scar. This measures approximately 3 mm. This had been noticed before and has not changed. There is good mobility of the tongue and palate. There is good mandibular excursion. Palpation of the neck does not show any worrisome masses or adenopathies. 'Scores and Scales' Signatures Electronically signed by : Pravin Rae MD; Sep 24 2021 10:45AM EST (Author) Normal [employer] Tobacco Screening.on 022 Adult depression screening assessment No [facility] Work Phone: Fall risk assessment a) No falls within the last year [facility] Work Phone: Tobacco use status [facility] b) No [facility] Work Phone: Tobacco Screening.on 021 Fall risk assessment b) One or more falls in the last year [facility] Work Phone: Tobacco use status CP b) No [facility] Work Phone: CNPTOUTREACuca 08-04-2017 CNPTOUTREACH Patient Outreach (INTMWS) DEREK REYNOSO ([id number]) 1940 FDate Time Provider Department08/04/17 RAISA HEREDIA ([facility]) INTMWS During your visit today, we recorded the following information about you:Raisa Heredia [facility] 08/04/2017 10:24 AM Signed PHMA TEAMLET DOCUMENTATIONProvider Action/FYI:Please file labs and advise if wanting additional.PSR Action/FYI:Teamlet has identified patient by name and date of .Team: ? Last Office Visit:Visit date not found? Next Office Visit: Visit date not found? Last BP/Labs:Blood Pressure:Last 3 Encounter BP Readings: Date: BP: 12/23/2015 122/66 10/17/2015 126/58 09/18/2015 141/70[average[Lipids:Ch olesterol, Total (mg/dL)Date Value12/22/2013 207 HDL Cholesterol (mg/dL)Date Value12/22/2013 83 LDL Cholesterol (mg/dL)Date Value12/22/2013 111 LDL Chol, [place] (mg/dL)Date Value06/08/2011 9612/11/2008 122 Triglycerid e (mg/dL)Date Value12/22/2013 64 HGB A1C:No results found for: TEM5PWMH:TSH (uU/mL)Date Value06/24/2015 3. 1.400 )Care Gap: HTNThyroidPlan:? Confirm PCP / Status? Type of appointment needed: Physical with labs priorLabs, HM and Immunization:Health Maintenance Due:ZOSTER VACCINE (SHINGRIX)(1 of 2) due on 01/15/1990FECAL OCCULT BLOOD due on 07/10/2016Mijessica Heredia CmaMiranjeff Heredia Cma 08/04/2017 10:24 AM SignedI spoke with raeann and she states she's changed physicians.Permission to remove Dr. Hanson as PCP.Allergies As of Date: 08/04/2017 Noted Allergy ReactionADHESIVE TAPE (ROSINS) 06/17/2012 2 - RashPLAQUENIL (HYDROXYCHLOROQUINE SUL*09/26/2007 Comments: Vision not as clearst volodymyr cobb [Other] 09/16/2006 8 - GI UpsetDate Reviewed: 12/23/2015Reviewed by: Su Kerr LPN - Fully AssessedReason for Visit: PHWI/Care Gap Outreach [[id number]]Primary Visit Diagnosis:Essential hypertension, benign [I10] Other Visit Diagnoses:Hypothyroidism , unspecified type [E03.9] Vitamin D deficiency [E55.9]Prescriptions as of 08/04/2017 Sig: AMLODIPINE 5 MG TABLET Take 1 tablet by mouth once d* ALENDRONATE 70 MG TABLET Take 1 tablet by mouth once e* COMPOUNDED PRESCRIPTION KNEE HIGH COMPRESSION STOCKIN* LEVOTHYROXINE 75 MCG TABLET Take 1 tablet by mouth once d* FISH, BORAGE, FLAXSEED OILS-O* Take 1 capsule by mouth once * LOSARTAN 100 MG-HYDROCHLOROTH* Take 1 tablet by mouth once d* TRIAMCINOLONE ACETONIDE 0.1 %* Apply 1 application to affect* CELECOXIB 200 MG CAPSULE Take 1 capsule by mouth once * TRAMADOL 50 MG TABLET 2 tablets twice a day as need* FOLIC ACID 1 MG TABLET Take 2 tablets by mouth once * TACROLIMUS 0.1 % TOPICAL OINT* Apply 1 application to affect* PREDNISONE 10 MG TABLET Take 1 tablet by mouth once d* METHOTREXATE SODIUM 2.5 MG TA* Take 6 tablets by mouth every* CHOLECALCIFEROL (VITAMIN D3) * Take 1 tablet by mouth once d* * CALCIUM 600 + D(3) 600 MG (1,* Take two (2) tablets once a d* * CENTRUM SILVER TABLET Take one(1) tablet daily. * VITAMIN C 500 MG TABLET Take one(1) tablet daily. * O-2 SUSPENSORY MISC Use 2 liters at nightProblem List As Of Date 08/04/2017 Noted Resolved BENIGN HYPERTENSION [I10] INVALID FOR* Hypothyroidism [E03.9] INVALID FOR* Disorder of bone and cartilage, unspecified [M8*INVALID FOR*06/28/2014 GENERAL OSTEOARTHROSIS [M15.9] INVALID FOR* Dermatophytosis of nail [B35.1] INVALID FOR*06/27/2015 Vitamin D deficiency [E55.9] INVALID FOR* Psoriatic arthritis [L40.50] INVALID FOR* More... Fibromyalgia [M79.7] INVALID FOR* More... Lumbosacral spondylosis without myelopathy [M47*INVALID FOR* Osteoporosis [M81.0] INVALID FOR* More... Hearing loss NEC INVALID FOR* Hypoxemia requiring supplemental oxygen [R09.02*INVALID FOR* More... Adenocarcinoma, junction of hard and soft palat*INVALID FOR* More... TMJ arthralgia [M26.629] INVALID FOR*06/27/2015 Hearing deficit [H91.90] INVALID FOR*06/27/2015 Edema [R60.9] INVALID FOR* Status:Closed by RAISA HEREDIA CMA on 08/04/17 [facility] PROGRESSon 08-04-2017 PROGRESS HNO ID: [id number] Author: Raisa Heredia Cma Service: (none) Author Type: (none) Type: Progress Notes Filed: 08/04/2017 10:24 AM Note Text: I spoke with raeann and she states she's changed physicians. Permission to remove Dr. Hanson as PCP. [facility] PROGRESS HNO ID: [id number]: Raisa Heredia CmaService: (none)Author Type: (none)Type: Progress NotesFiled: 08/04/2017 10:24 AMNote Text: PHMA TEAMLET DOCUMENTATIONProvider Action/FYI:Please file labs and advise if wanting additional.PSR Action/FYI:Teamlet has identified patient by name and date of .Team: ? Last Office Visit:Visit date not found? Next Office Visit: Visit date not found? Last BP/Labs:Blood Pressure:Last 3 Encounter BP Readings: Date: BP: 12/23/2015 122/66 10/17/2015 126/58 09/18/2015 141/70[average[Lipids:Ch olesterol, Total (mg/dL)Date Value12/22/2013 207 HDL Cholesterol (mg/dL)Date Value12/22/2013 83 LDL Cholesterol (mg/dL)Date Value12/22/2013 111 LDL Chol, [place] (mg/dL)Date Value06/08/2011 9612/11/2008 122 Triglycerid e (mg/dL)Date Value12/22/2013 64 HGB A1C:No results found for: LYM5VAFS:TSH (uU/mL)Date Value06/24/2015 3. 1.400 )Care Gap: HTNThyroidPlan:? Confirm PCP / Status? Type of appointment needed: Physical with labs priorLabs, HM and Immunization:Health Maintenance Due:ZOSTER VACCINE (SHINGRIX)(1 of 2) due on 01/15/1990FECAL OCCULT BLOOD due on 07/10/2016Miranda Three [employer] Normal [facility] Office Visit: PATEL & melia s of breathon 12-08-2016 Dietary management education, guidance, and counseling (procedure) yes Invalid Interpretation Code [facility] Work Phone: Documentation of current medications (procedure) Done Invalid Interpretation Code [facility] Work Phone: Tobacco smoking status NHIS Never Invalid Interpretation Code [facility] Work Phone: Tobacco use [facility] Never smoker Invalid Interpretation Code [facility] Work Phone: Office Visiton 06-26-2016 Fall risk assessment No Invalid Interpretation Code [facility] Work Phone: Clinical Lists Updateon 05-09 Alanine aminotransferase (ALT) 25 U/L Invalid Interpretation Code [facility] Work Phone: Alkaline phosphatase (ALP) 54 U/L Invalid Interpretation Code [facility] Work Phone: Aspartate aminotransferase (AST) 19 U/L Invalid Interpretation Code [facility] Work Phone: Bilirubin (total) 0.50 mg/dL Invalid Interpretation Code [facility] Work Phone: Chloride 107 mmol/L Invalid Interpretation Code [facility] Work Phone: CO2 28.0 mmol/L Invalid Interpretation Code [facility] Work Phone: Creatinine 0.79 mg/dL Invalid Interpretation Code [facility] Work Phone: Hematocrit (HCT) 38.2 % Invalid Interpretation Code [facility] Work Phone: Hemoglobin mass conc (Bld) 11.8 g/dL Invalid Interpretation Code [facility] Work Phone: Platelets 283 10*3/mm3 Invalid Interpretation Code [facility] Work Phone: Potassium molar conc 3.6 mmol/L Invalid Interpretation Code [facility] Work Phone: Sodium 143 mmol/L Invalid Interpretation Code [facility] Work Phone: triiodothyronine (t3) uptake, serum 1.32 % Invalid Interpretation Code [facility] Work Phone: Urea nitrogen 21 mg/dL Invalid Interpretation Code [facility] Work Phone: WBC (Leukocytes) 5.1 10*3/uL Invalid Interpretation Code [facility] Work Phone: Clinical Lists Update: Prelo mill tender warm up 02-25-2016 Left ventricular Ejection fraction 65 % Invalid Interpretation Code [facility] Work Phone: Replaced Document: Madeline Latonia Observationson 02-13-2016 EKG QRS axis 27 deg Invalid Interpretation Code [facility] Work Phone: Interpretation Sinus Bradycardia WI THIN NORMAL LIMITS Invalid Interpretation Code [facility] Work Phone: P [place] 41 deg Invalid Interpretation Code [facility] Work Phone: OH Interval 176 ms Invalid Interpretation Code [facility] Work Phone: Pulse (Heart Rate) 55 /min Invalid Interpretation Code [facility] Work Phone: QRS Duration 88 ms Invalid Interpretation Code [facility] Work Phone: QT Interval new path ms Invalid Interpretation Code [facility] Work Phone: QTc [place] 420 ms Invalid Interpretation Code [facility] Work Phone: T [place] 24 deg Invalid Interpretation Code [facility] Work Phone: Clinical Lists Update: 11-11-2015 BUN/Creatinine Ratio 29.6 mg/mg Invalid Interpretation Code [facility] Work Phone: Calcium 8.7 mg/dL Invalid Interpretation Code [facility] Work Phone: Glucose mass conc 90 mg/dL Invalid Interpretation Code [facility] Work Phone: Magnesium 2.1 mg/dL Invalid Interpretation Code [facility] Work Phone: Protein 6.6 g/dL Invalid Interpretation Code [facility] Work Phone: Clinical Lists Update: 12-22-2013 Cholesterol 207 mg/dL Invalid Interpretation Code [facility] Work Phone: HDL Cholesterol 83 mg/dL Invalid Interpretation Code [facility] Work Phone: LDL Cholesterol 111 mg/dL Invalid Interpretation Code [facility] Work Phone: Triglyceride 64 mg/dL Invalid Interpretation Code [facility] Work Phone: Cholesterol to HDL Ratio 2.49 {ratio} Invalid Interpretation Code [facility] Work Phone: LDL to HDL Ratio 1.34 Invalid Interpretation Code [facility] Work Phone: very low density lipoproteins 13 mg/dL Invalid Interpretation Code [facility] Work Phone: Vital Signs Date Time Vital Sign Value Performing Clinician Facility 09-24-2021 10:24-0400 Body height 152.4 cm Ritchie Munir Hanson Work Phone: -[facility] Work Phone: 09-24-2021 10:24-0400 Body mass index (BMI) [Ratio] 39.17 kg/m2 Ritchie Hanson Work Phone: [facility] Work Phone: 09-24-2021 10:24-0400 Body surface area Derived from formula 1.87 m2 Ritchie Hanson Work Phone: [facility] Work Phone: 09-24-2021 10:24-0400 Body temperature 96.6 [degF] Ritchie Hanson Work Phone: [facility] Work Phone: 09-24-2021 10:24-0400 Body weight 90.97 kg Ritchie Hanson Work Phone: [facility] Work Phone: 09-25-2020 12:55-0400 Body height 152.4 [...] Phone: 09-25-2020 12:55-0400 Body weight 88.99 kg Ritchie Hanson Work Phone: [facility] [place] Work Phone: 09-25-2020 12:55-0400 Respiratory rate 18 /min Ritchie Hanson Work Phone: [facility] [place] Work Phone: 12-08-2016 07:19-0400 BMI (Body Mass Index) 37.88 kg/m2 Connie Carter [facility] Work Phone: 12-08-2016 07:19-0400 Body Temperature 97.4 [degF] Connie Machado [facility] Work Phone: 12-08-2016 07:19-0400 BP Diastolic 70 mm[Hg] Connie Machado [facility] Work Phone: 12-08-2016 07:19-0400 BP Systolic 130 mm[Hg] Connie Carter [facility] Work Phone: 12-08-2016 07:19-0400 Height 152.4 cm Connie Carter [facility] [facility] Work Phone: 12-08-2016 07:19-0400 Pulse (Heart Rate) 70 /min Connie Machado [facility] Work Phone: 12-08-2016 07:19-0400 Respiratory Rate 18 /min Connie Machado [facility] Work Phone: 12-08-2016 07:19-0400 Weight 88 kg Connie Machado [facility] Work Phone: 04-03-2016 10:51-0500 BSA (Body Surface Area) 1.86 m2 Connie Carter [facility] Work Phone: 03-17-2016 09:02-0500 Body Temperature 97.52 [degF] Connie Carter [facility] Work Phone: 03-17-2016 09:02-0500 Height 152.4 cm Connie Machado [facility] Work Phone: 03-17-2016 09:02-0500 Weight 90.91 kg Connie Machado [facility] Work Phone: Encounters Encounter Date Encounter Type Care Provider Facility Start: 09-24-2021 Office outpatient vi sit 15 minutes Ritchie Hanson Work Phone: [facility] [place] Work Phone: Start: 09-25-2020 Office outpatient vi sit 15 minutes Ritchie Hanson Work Phone: [facility] Work Phone: Start: 06-09-2017 [facility] Facility :[id number] Procedures Date Procedure Procedure Detail Performing Clinician Start: 06-26-2016 End: 06-26-2016 Follow Up Appt 6 months Maxx Stephens MD Start: 06-26-2016 End: 06-26-2016 MMErin Stephens MD Start: 04-03-2016 End: 04-03-2016 Follow Up Appt 3 months Edelmira booth PA-C Work Phone: Start: 04-03-2016 End: 04-03-2016 MM Edelmira Orantes PA-C Work Phone: Start: 03-17-2016 End: [...] Stephens MD Start: 02-13-2016 End: 03-20-2016 MMM Maxx Stephens MD Start: 02-13-2016 End: 02-25-2016 Nuclear stress test -exercise Maxx bryan MD Start: 02-13-2016 End: 03-20-2016 Us abdominal real time w/image limited Maxx Stephens MD Plan of Treatment Date Care Activity Detail Author Start: 09-24-2021 FUV, Provider: Pravin Rae, Status: Pen, Time: 10:30 AM FUV, Provider: Pravin Rae, Status: Pen, Time: 10:30 AM [facility] Work Phone: Start: 06-08-2017 End: 06-08-2017 Appointment Appointment [facility] Work Phone: Start: 01-05-2017 End: 01-05-2017 Appointment Appointment [facility] Work Phone: Start: 12-08-2016 End: 12-08-2016 [facility] Work Phone: Start: 12-08-2016 End: 12-08-2016 Follow Up Appt 6 months Follow Up Appt 6 months [facility] Work Phone: Start: 12-08-2016 End: 12-08-2016 Appointment Appointment [facility] Work Phone: Start: 09-09-2016 End: 09-09-2016 DMB DMB [facility] Work Phone: Start: 09-09-2016 End: 09-09-2016 Follow Up Appt 3 months Follow Up Appt 3 months [facility] Work Phone: Start: 06-26-2016 End: 06-26-2016 Follow Up Appt 6 months Follow Up Appt 6 months [facility] Work Phone: Start: 06-26-2016 End: 06-26-2016 MMM MMM [facility] Work Phone: Start: 06-09-2016 End: 06-09-2016 [facility] Work Phone: Start: 06-09-2016 End: 06-09-2016 Follow Up Appt 3 months Follow Up Appt 3 months [facility] Work Phone: Start: 04-03-2016 End: 04-03-2016 Follow Up Appt 3 months Follow Up Appt 3 months [facility] Work Phone: Start: 04-03-2016 End: 04-03-2016 MMM MMM [facility] Work Phone: Start: 03-17-2016 End: 04-22-2016 Complete sleep workup (PSG,CPAP as indicated) & Follow up Complete sleep workup (PSG,CPAP as indicated) & Follow up [facility] Work Phone: Start: 03-17-2016 End: 04-22-2016 Follow Up Appt 3 months Follow Up Appt 3 months [facility] Work Phone: Start: 03-17-2016 End: 04-22-2016 Titration with Follow up (pt not on cpap) Titration with Follow up (pt not on cpap) [facility] Phone: Start: 03-05-2016 End: 03-05-2016 Pulmonary Referral Pulmonary Referral Woo Montes DO, [facility], [address], [address], [place], [address] [facility] Phone: Start: 02-26-2016 End: 02-26-2016 Pulmonary Function Test - complete Pulmonary Function Test - complete [facility] Phone: Start: 02-13-2016 End: 02-13-2016 Ecg routine ecg w/least 12 lds w/i&r EKG (In office) [facility] Phone: Start: 02-13-2016 End: 02-13-2016 Echocardiography Echocardiogram (complete) [facility] Phone: Start: 02-13-2016 End: 03-20-2016 Follow Up Appt 6 weeks Follow Up Appt 6 weeks [facility] Phone: Start: 02-13-2016 End: 02-13-2016 Follow Up Appt Other Follow Up Appt Other [facility] Phone: Start: 02-13-2016 End: 03-20-2016 MMM MMM [facility] Phone: Start: 02-13-2016 End: 02-13-2016 Nuclear stress test -exercise Nuclear stress test -exercise [facility] Phone: Start: 02-13-2016 End: 02-13-2016 Us abdominal real time w/image limited US Abdominal (aneurysm screening) [facility] Phone: Payers Date Payer Category Payer Policy ID Medicare [id number] Unknown Social History Date Type Detail Facility Alcohol Use (History) Alcohol Use (Histor y) [facility] Work Phone: History of Present illness Narrative 05-09-2021 Note Date & Type Note Facility 05-09-2021 History of Present illness Narrative 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 The patient does not have any symptoms related to that. 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 The patient does not have any symptoms related to that. [facility] Work Phone: Summary Purpose Family History No [...] ized section and content) DATE CREATED AUTHOR 07/29/2017 [facility] [place] DATE CREATED AUTHOR AUTHOR'S ORGANIZ ATION 08/04/2017 [facility] DATE CREATED AUTHOR AUTHOR'S ORGANIZ ATION 10/01/2021 [employer] FOR RECORDS PERTAINING TO PATIENTS WHO ARE [...] BE BASED ON THE PRIMARY CLINICAL RECORDS. [facility] [employer] provides no warranty or guarantee of the accuracy or completeness of information in this document.
== END | disposition home or self-care (01) ==
LOC: SL 11:35
PROVIDERS: PCP Internal Medicine; Referring Provider Nurse Practitioner Acute Care; Visit Provider Nurse Practitioner Acute Care
DX: G47.33 Obstructive sleep apnea (adult) (pediatric) (principal)
CPT/HCPCS: 98960; G0463

== ENCOUNTER → 2024-03-07 | Outpatient (CLI) | payer MEDICARE, OTHER, SELFPAY ==
--- NOTE | 2024-03-07 10:48 | BD_ITS ---
PROCEDURE: DEXA BONE DENSITY STUDY REASON FOR EXAM: F, age 84 y/o. Patient is postmenopausal.. COMPARISON: Comparison is made with prior study dated January 27, 2022. TECHNIQUE: DEXA scan of lumbar spine and both hips. FINDINGS: Lumbar Spine (L1-L4): g/cm2 (0.813)/T-score (-2.6)/Z-score (0.4) findings are suggestive of osteopor osis with a high fracture risk. Left Femur Total: g/cm2 (0.750)/T-score (-1.6)/Z-score (0.7) Left Femoral Neck: g/cm2 (0.432)/T-score (-3.8)/Z-score (-1.3) Right Femur Total: g/cm2 (0.763)/T-score (-1.5)/Z-score (0.8) Right Femoral Neck: g/cm2 (0.620)/T-score (-2.1)/Z-score (0.4) The T-Scores on the most recent prior examination were: Lumbar Spine (L1-L4): There has been decrease of bone density since the previous examination. Left Femur Total: Decrease of 4.6 percent. Right Femur Total: Improvement of 2 percent. BD/Dexa Bone Density Study IMPRESSION: The patient is considered osteoporotic as outlined below according to World Hea th Organization (WHO) criteria with a 1. fracture risk. There has been worsening of bone density since the previous exa mination. Reading Location: [place] [address]
== END | disposition home or self-care (01) ==
LOC: OPBD 10:44
PROVIDERS: PCP Internal Medicine; Referring Provider Internal Medicine; Visit Provider Internal Medicine
DX: M81.0 Age-related osteoporosis without current pathological fracture (principal); Z78.0 Asymptomatic menopausal state
CPT/HCPCS: 77080

== ENCOUNTER → 2024-03-22 | Outpatient (CLI) | payer MEDICARE, OTHER, SELFPAY ==
[2024-03-22 17:59] LABS: Absolute Lymphocyte Count 1.22 X10^3/uL (0.83-4.51); Basophil# 0.04 X10^3/uL; Basophil% 0.5 % (0-1); Eosinophil# 0.21 X10^3/uL; Eosinophils% 2.9 % (0-5); Hematocrit 43.4 % (37-47); Hemoglobin 13.7 g/dL (12.0-15.0); Lymphocyte # 1.22 X10^3/ul (0.83-4.51); Lymphocyte % 16.7 % (19-41); Mean Corp Hgb Conc 31.6 g/dL (32-36); Mean Corpuscular Hgb 28.5 pg (27.0-32.0); Mean Corpuscular Volume 90.2 fL (81-99); Mean Platelet Vol. 9.8 fl (6.2-12.0); NRBC Flagged by Analyzer 0 % (0-5); Neutrophil % 68.5 % (47-70); Platelet Count 299 K/mm3 (150-450); RBC Distribution Width CV 13.3 % (11.6-14.6); RBC Distribution Width SD 43.8 fl (35.1-43.9); Red Blood Count 4.81 M/mm3 (4.2-5.4); White Blood Count 7.3 K/mm3 (4.4-11.0)
[2024-03-22 18:23] LABS: AST(SGOT) 20 U/L (15-37); Alanine Aminotransfer ALT/SGPT 25 U/L (13-56); Albumin, Serum 3.4 g/dL (3.2-5.0); Alkaline Phosphatase 79 U/L (45-117); Bilirubin, Direct 0.17 mg/dL (0.00-0.30); Cholesterol 213 mg/dL (200); Free T3 2.1 pg/mL (2.18-3.98); Globulin 3.7 g/dL (2.2-4.2); High Density Lipoprotein 71 mg/dL; Protein, Total 7.1 g/dL (6.4-8.2); T4 Free Direct 1.14 ng/dL (0.76-1.46); Triglycerides 113 mg/dL; Very Low Density Lipoprotein 23 mg/dL (5-40)
[2024-03-22 18:52] LABS: Hepatitis B Surface Antibody Non-Reactive; Hepatitis B Surface Antigen Non-Reactive (Nonreactive); Hepatitis C Antibody Non-Reactive (Nonreactive); Vitamin D,25 Hydroxy 59.4 ng/mL
[2024-03-24 16:09] LABS: Hepatitis B Core Ab Total Negative (Negative); QNTFERON TB Mitogen Value > 10.00 IU/mL (.); QNTFERON TB Nil Value 0.05 IU/mL (.); QNTFERON TB1+ Ag Value 0.05 IU/mL (.); QNTFERON TB2+ Ag Value 0.05 IU/mL (.); QNTIFERON TB Positive Criteria Negative (Negative)
== END | disposition home or self-care (01) ==
LOC: MTLAB 15:09
PROVIDERS: PCP Internal Medicine; Referring Provider Internal Medicine; Visit Provider Internal Medicine
DX: Z13.220 Encounter for screening for lipoid disorders (principal); E66.01 Morbid (severe) obesity due to excess calories; E78.5 Hyperlipidemia, unspecified; M81.0 Age-related osteoporosis without current pathological fracture; I10 Essential (primary) hypertension; E03.9 Hypothyroidism, unspecified; G47.33 Obstructive sleep apnea (adult) (pediatric); Z68.37 Body mass index [BMI] 37.0-37.9, adult; Z79.899 Other long term (current) drug therapy; E55.9 Vitamin D deficiency, unspecified
CPT/HCPCS: 36415; 80061; 80076; 82306; 84439; 84443; 84481; 85025; 86480; 86704; 86706; 86803; 87340

== ENCOUNTER 2024-05-25 13:53 | Emergency (ER) | payer MEDICARE, OTHER, SELFPAY ==
[2024-05-25 13:59] VITALS: BP 205/68; PULSE 72; RESP 20; TEMP 36.3; O2SAT 99; BMI 37.7
--- NOTE | 2024-05-25 14:17 | EKG12_ITS ---
Test Reason : Blood Pressure : */* mmHG Vent. Rate : 64 BPM Atrial Rate : 64 BPM P-R Int : 174 ms QRS Dur : 80 ms QT Int : 402 ms P-R-T Axes : 47 20 19 degrees QTcB Int : 414 ms Sinus rhythm with occasional Premature ventricular complexes Otherwise normal ECG Confirmed by Juan Morales ([id number]), editor sound IVONE CARRERA ([id number]) on 05/26/2024 12:44:41 PM Referred By: Amaury Coates Confirmed By: Juan Morales
--- NOTE | 2024-05-25 14:17 | EX.ED.DYSGE1 ---
HPI History of Present Illness Chief Complaint: Hypertension Narrative Narrative: 84-year-old female past medical history of hypertension presents to the emergency department with elevated blood pressure. She relates history that she was trying to clean up her house because she wants to sell it. She was moving things around and lifting multiple things. She started having a funny feeling on the left side of her head which she states she has had previously. She denies any chest pain or shortness of breath, no recent fevers or chills or cough. No paresthesias. She states that she had to sit down, and she took her blood pressure and it was elevated systolically over 200. She has been on losartan 100 mg for quite some time and was taken off amlodipine because of leg swelling. Additionally, she relates history that she was told by her primary care provider that as long as her diastolic is below 80 that she is on the right medication. She states that her funny feeling in her head/headache has resolved. She is feeling slightly improved but presents to the emergency department because of the elevated blood pressure. [facility] Medical History Osteoporosis Pelvic pain in female Dysuria DVT (deep venous thrombosis) Hypertension PVCs (premature ventricular contractions) Palpitations Venous insufficiency Lipodermatosclerosis of left lower extremity Venous insufficiency of both lower extremities Tiredness Leg edema, left Psoriasis Encounter to establish care Adenocarcinoma Tumors Thyroid disease Osteopenia Hives Heart disease Hearing problem HLD (hyperlipidemia) Bilateral carotid artery stenosis Urinary tract infection Cardiac murmur Knee pain Arthritis Essential hypertension Adenocarcinoma of salivary gland Fibromyalgia Osteoarthritis Psoriatic arthritis Hemorrhoids Back pain Hypothyroidism PATEL (obstructive sleep apnea) Obesity Abnormal PFTs (pulmonary function tests) Bilateral carotid bruits SOB (shortness of breath) Home Medications ?Medication ?Instructions ?Recorded ?Last Taken ?Type ascorbate calcium (vitamin C) 500 500 mg PO DAILY 01/01/19 Unknown History mg tablet multivitamin 1 cap PO DAILY 01/01/19 Unknown History elderberry fruit 200 mg capsule 1,000 mg PO DAILY 11/11/20 Unknown History coenzyme Q10 400 mg capsule (Co 800 mg PO DAILY 09/25/21 Unknown History Q-10) lutein 20 mg capsule 20 mg PO DAILY 09/25/21 Unknown History triamcinolone acetonide 0.1 % 1 applic topical DAILY PRN rash 09/25/21 12/16/22 History topical cream vitamin B complex (Complex B-100 1 tab PO DAILY 09/25/21 Unknown History tablet,extended release) zinc citrate, zinc oxide 50 mg mg PO 09/25/21 Unknown History tablet cholecalciferol (vitamin D3) 125 125 mcg PO DAILY 12/15/21 Unknown History mcg (5,000 unit) tablet phytonadione (vitamin K1) 100 mcg 100 mcg PO DAILY 11/16/22 Unknown History tablet quercetin 500 mg capsule mg PO QDAY 11/16/22 Unknown History vitamin E (dl, acetate) 180 mg 180 mg PO DAILY 11/16/22 Unknown History (400 unit) capsule aspirin 81 mg tablet,delayed 81 mg PO DAILY 01/19/23 Unknown History release (Adult Low Dose Aspirin) ketoconazole 2 % shampoo topical 02/10/23 Unknown History losartan 100 mg tablet 100 mg PO DAILY #90 tabs 03/30/24 Unknown Rx risankizumab-rzaa 60 mg/mL 60 mg .Route [id number] 05/18/24 Unknown History intravenous solution (Skyrizi) levothyroxine 75 mcg tablet 75 mcg PO DAILY #90 tabs 05/22/24 Unknown Rx losartan 100 1 tab PO DAILY #30 tabs 05/25/24 Unknown Rx mg-hydrochlorothiazide 12.5 mg tablet Allergy/AdvReac Type Severity Reaction Status Date / Time adhesive tape AdvReac Severe whelts Verified 05/25/24 13:58 atorvastatin AdvReac Severe Myalgias Verified 05/25/24 13:58 and elevated CK turmeric AdvReac Intermediate Diarrhea Verified 05/25/24 13:58 Pillo's wort (Pillo's AdvReac Vomiting Verified 05/25/24 13:58 Wort) Family History Mother Hypertension Arthritis Dementia Abdominal aortic aneurysm (AAA) CHF (congestive heart failure) Sister Asthma Hypertension Diabetes Daughter Asthma Heart disease Sister Arthritis Diabetes Thyroid disorder Other Psoriasis Surgical History H/O total knee replacement History of tubal ligation History of vaginal hysterectomy History of lumpectomy of right breast History of repair of right rotator cuff History of cataract surgery History of knee replacement procedure of left knee Social History adopted: No household members: none housing: house number of children: 3 current occupational status: retired pets and animals: No leisure activities: other history of recent travel: No sexually active: No Smoking Status: Never smoker second hand exposure: No alcohol intake: never substance use type: does not use well-balanced diet: daily or most days caffeine: Yes eating out: rarely or never during the past year weight has: remained stable justo/holiness: Oriental [employer] seatbelt use: always do you feel safe at home: Yes ROS ROS ED ROS Narrative Constitutional: No fever, no chills. HEENT: No sore throat. No neck pain. No loss of vision. Cardiovascular: No chest pain. No palpitations. No pedal edema. Respiratory: No cough, no shortness of breath. Abdominal: No abdominal pain. No nausea. No vomiting. Musculoskeletal: No myalgias. No arthralgias. Neurologic: Funny feeling on left side of head/headaches. No dizziness. Questionable lightheadedness. Skin: No rash. No change in color. Psychiatric: No depression. Slight anxiety. EXAM Physical Exam Narrative Exam Narrative: Afebrile. Vital signs noted. Systolic blood pressure over 200. Nontoxic-appearing. Cardiovascular examination reveals a regular rate and rhythm. Lungs are clear to auscultation bilaterally. Slight tachypnea. No accessory muscle use. Abdomen soft, nontender without guarding or rebound. Positive bowel sounds. Neurological examination is nonfocal, nonlateralizing. Positive compression stockings. Const Vital Signs: 05/25/24 13:59 05/25/24 14:57 05/25/24 16:00 Temperature 97.4 F L Temperature Source Temporal Pulse Rate 72 65 77 Respiratory Rate 20 H 15 16 Blood Pressure 205/68 H 158/70 H 159/72 H Blood Pressure Mean 113 99 101 Pulse Ox 99 95 95 Oxygen Delivery Method Room Air Room Air MDM MDM MDM Narrative Medical decision making narrative: Differential diagnosis includes but not limited to hypertensive encephalopathy versus intracranial hemorrhage versus hypertensive emergency versus urgency. CT of the brain will be obtained to rule out hemorrhage as well as EKG, CBC, CMP to check her kidney function. I do not feel troponin is indicated. As she is not having chest pain, I feel an EKG is sufficient as she states that she felt a little jittery, but states that she does not have decaf coffee. EKG was obtained and interpreted by myself independently as normal sinus rhythm at 64 bpm with PVCs but no acute ST changes. No STEMI. No significant change from EKG dated December 27, 2022. I reviewed her laboratory work and she has normal white count of 8.3 with hemoglobin 13.9, hematocrit 42.0, platelet count normal at 267. CMP is remarkable for normal BUN and creatinine, LFTs are grossly unremarkable. I reviewed the radiology report of the CT of the brain and while there are chronic changes, there is no acute hemorrhage. Upon repeat examination, her systolic blood pressure is now 158 on the monitor. I discussed patient with her primary care provider, Dr. Meredith Briggs. He would like to change her losartan 100 mg to losartan 100/12.5 mg of HCTZ. She has to follow-up in approximately 3 weeks with her primary care provider. Return instructions to the emergency department were reviewed. Disposition is discharged home in stable condition. History & Record Review Discussion w/independent historian: Patient Additional record(s) reviewed:: Prior labs Lab Data Attestation: I reviewed the patient's lab results. Labs: Laboratory Results - last 24 hr 05/25/24 14:26 WBC 8.3 RBC 4.71 Hgb 13.9 Hct 42.0 MCV 89.2 MCH 29.5 MCHC 33.1 RDW Std Deviation 44.5 H RDW Coeff of [place] 13.7 Plt Count 267 MPV 9.3 Sodium 139 Potassium 4.3 Chloride 105 Carbon Dioxide 22.9 Anion Gap 11 BUN 19 Creatinine 0.83 Estim Creat Clear Calc 49.67 L Est GFR (MDRD) Non-Af 70 BUN/Creatinine Ratio 22.9 H Glucose 99 Calcium 9.1 Total Bilirubin 0.52 AST 28 ALT 32 Alkaline Phosphatase 71 Total Protein 6.7 Albumin 3.9 Globulin 2.8 Albumin/Globulin Ratio 1.4 Radiography Diagnostic Testing: Clinical Impression(s) from Imaging Studies Brain CT 05/25/24 14:35 IMPRESSION: CHRONIC CHANGES. NO ACUTE FINDINGS. Reading Location: [place] [address] Discharge Plan Triage Chief Complaint: Hypertension ED Provider: Amaury Coates Dx/Rx/DC Orders Clinical Impression: Labile hypertension, Cephalgia Instructions: ED High Blood Pressure Hypertension Prescriptions: New losartan-hydrochlorothiazide 100-12.5 mg tablet 1 tab PO DAILY Qty: 30 0RF No Action multivitamin Capsule 1 cap PO DAILY ascorbate calcium (vitamin C) 500 mg tablet 500 mg PO DAILY elderberry fruit 200 mg capsule 1,000 mg PO DAILY Complex B-100 Tablet Extended Release 1 tab PO DAILY zinc citrate, zinc oxide 50 mg tablet PO coenzyme Q10 [Co Q-10] 400 mg capsule 800 mg PO DAILY triamcinolone acetonide 0.1 % cream 1 applic topical DAILY PRN (Reason: rash) lutein 20 mg capsule 20 mg PO DAILY Rx Instructions: give with meal/snack cholecalciferol (vitamin D3) 125 mcg (5,000 unit) tablet 125 mcg PO DAILY phytonadione (vitamin K1) 100 mcg tablet 100 mcg PO DAILY vitamin E (dl, acetate) 180 mg (400 unit) capsule 180 mg PO DAILY quercetin 500 mg capsule PO QDAY aspirin [Adult Low Dose Aspirin] 81 mg tablet,delayed release (DR/EC) 81 mg PO DAILY ketoconazole 2 % shampoo topical Patient Comments: use to wash skin folds DAILY in the shower Skyrizi 60 mg/mL solution 60 mg .Route [id number] Rx Instructions: Sub q every 3 months losartan 100 mg tablet 100 mg PO DAILY Qty: 90 3RF levothyroxine 75 mcg tablet 75 mcg PO DAILY Qty: 90 1RF Primary Care Provider: Meredith Briggs Referrals: Meredith Briggs MD [Primary Care Provider] - 1-2 Weeks Activity Restrictions/Additional Instructions: Your physician recommended changing your medication to losartan/hydrochlorothiazide. Keep a log of your blood pressures for your primary care provider and follow-up in 3 weeks. Return with new or worsening symptoms. Print Language: Chilean Disposition Disposition: Home, Self Care
--- NOTE | 2024-05-25 14:35 | CT_ITS ---
PROCEDURE: BRAIN/HEAD WITHOUT CONTRAST 05/25/2024 REASON FOR EXAM: HYPERTENSION, HEADACHE TECHNIQUE: Head CT without intravenous contrast. Coronal and Sagittal reconstruction series were provided. One or more dose reduction techniques were used (e.g., Automated exposure control, adjustment of the mA and/or kV according to patient size, use of iterative reconstruction technique. RADIATION DOSE SUMMARY: CTDlvol: 44.99 mGy DLP: 846.73 mGycm COMPARISON: None FINDINGS: Brain: Low density in the periventricular white matter suggests mild chronic small vessel ischemic changes. CSF Spaces: Mild generalized cerebral atrophy Sinuses/Mastoids: Clear at visualized levels Bones: CT/Brain/Head without Contrast IMPRESSION: CHRONIC CHANGES. NO ACUTE FINDINGS. Reading Location: [place] [address]
[2024-05-25 14:38] LABS: Hemoglobin 13.9 g/dL (12.0-15.0); Mean Corp Hgb Conc 33.1 g/dL (32-36); Mean Corpuscular Hgb 29.5 pg (27.0-32.0); Mean Corpuscular Volume 89.2 fL (81-99); Mean Platelet Vol. 9.3 fl (6.2-12.0); Platelet Count 267 K/mm3 (150-450); RBC Distribution Width CV 13.7 % (11.6-14.6); RBC Distribution Width SD 44.5 fl (35.1-43.9); Red Blood Count 4.71 M/mm3 (4.2-5.4); White Blood Count 8.3 K/mm3 (4.4-11.0)
[2024-05-25 14:57] VITALS: BP 158/70; PULSE 65; RESP 15; O2SAT 95
[2024-05-25 14:59] LABS: ALB/GLOB Ratio 1.4 RATIO (0.9-2.4); AST(SGOT) 28 U/L (<=31); Alanine Aminotransfer ALT/SGPT 32 U/L (<=34); Albumin, Serum 3.9 g/dL (3.4-4.8); Alkaline Phosphatase 71 U/L (35-104); Anion Gap 11 (5-15); BUN 19 mg/dL (4-19); BUN/Creat Ratio 22.9 RATIO (10-20); Calcium,Total 9.1 mg/dL (7.6-11.0); Carbon Dioxide 22.9 mmol/L (21.0-32.0); Chloride 105 mmol/L (98-108); Creatinine, Serum 0.83 mg/dL (0.70-1.20); EST Glomerular Filtration Rate 70 (>60); Estimated Creatinine Clearance 49.67 ml/min (50-250); Globulin 2.8 g/dL (2.2-4.2); Glucose 99 mg/dL (70-99); Potassium 4.3 mmol/L (3.3-5.1); Protein, Total 6.7 g/dL (5.9-8.4); Sodium Level 139 mmol/L (133-145); Total Bilirubin 0.52 mg/dL (0.00-1.30)
[2024-05-25 16:00] VITALS: BP 159/72; PULSE 77; RESP 16; O2SAT 95
[2024-05-25 16:09] VITALS: BP 159/72; PULSE 63; RESP 16; TEMP 36.6; O2SAT 96
== END 2024-05-25 16:10 | disposition home or self-care (01) ==
PROVIDERS: Emergency Provider Emergency Medicine; PCP Internal Medicine; Referring Provider Emergency Medicine; Visit Provider Emergency Medicine
DX: I10 Essential (primary) hypertension (principal); R51.9 Headache, unspecified; E78.5 Hyperlipidemia, unspecified; E03.9 Hypothyroidism, unspecified; Z79.890 Hormone replacement therapy; Z79.899 Other long term (current) drug therapy
CPT/HCPCS: 70450; 80053; 85027; 93005; 99284; A4216

== ENCOUNTER → 2024-06-27 | Outpatient (CLI) | payer MEDICARE, OTHER, SELFPAY ==
[2024-06-27 12:50] LABS: Anion Gap 11 (5-15); BUN 20 mg/dL (4-19); Calcium,Total 8.9 mg/dL (7.6-11.0); Carbon Dioxide 24.9 mmol/L (21.0-32.0); Chloride 106 mmol/L (98-108); Creatinine, Serum 0.73 mg/dL (0.70-1.20); EST Glomerular Filtration Rate 82 (>60); Glucose 92 mg/dL (70-99); Potassium 4.1 mmol/L (3.3-5.1); Sodium Level 141 mmol/L (133-145)
== END | disposition home or self-care (01) ==
LOC: MTLAB 10:01
PROVIDERS: PCP Internal Medicine; Referring Provider Internal Medicine; Visit Provider Internal Medicine
DX: I10 Essential (primary) hypertension (principal); E03.9 Hypothyroidism, unspecified
CPT/HCPCS: 36415; 80048; 83735

== ENCOUNTER → 2024-10-12 | Outpatient (CLI) | payer MEDICARE, OTHER, SELFPAY ==
--- NOTE | 2024-10-12 12:30 | BI_ITS ---
EXAM: SCRN MAMM (CAD)W/IVAN BILAT DATE: 10/12/2024 CLINICAL HISTORY: F, Age 84 y/o , BREAST CANCER SCREENING Daughter with breast cancer. TECHNIQUE: Procedure Code: [id number] Modality: MG Procedure: SCRN MAMM (CAD)W/IVAN BILAT COMPARISON: Prior exam(s) dated June 07, 2023.. FINDINGS: TISSUE DENSITY: The breasts are heterogeneously dense, which may obscure small masses. Bilateral Breast Mammographic Findings: No significant masses, calcifications or other abnormalities are identified. Stable asymmetry were of the right breast is smaller than the left. No suspicious masses, areas of developing architectural distortion, or suspicious calcifications. There has been no significant interval change. BI/SCRN MAMM (CAD)W/IVAN BILAT IMPRESSION: Stable screening bilateral mammogram. OVERALL FINAL ASSESSMENT BI-RADS 2: BENIGN RECOMMENDATION: Routine annual follow-up in 1 Year A letter with findings and recommendations will be mailed to the patient. Reading Location: [id number]
== END | disposition home or self-care (01) ==
PROVIDERS: PCP Internal Medicine; Referring Provider Internal Medicine; Visit Provider Internal Medicine
DX: Z12.31 Encounter for screening mammogram for malignant neoplasm of breast (principal)
CPT/HCPCS: 77063; 77067

== ENCOUNTER → 2024-12-04 | Outpatient (CLI) | payer MEDICARE, OTHER, SELFPAY ==
[2024-12-04 12:21] LABS: Hematocrit 39.7 % (37-47); Hemoglobin 12.9 g/dL (12.0-15.0); Immature Granulocytes Count 0.020 X10^3/uL (0.0-0.0); Mean Corp Hgb Conc 32.5 g/dL (32-36); Mean Corpuscular Volume 90.0 fL (81-99); Mean Platelet Vol. 9.7 fl (6.2-12.0); NRBC Flagged by Analyzer 0 % (0-5); Platelet Count 288 K/mm3 (150-450); RBC Distribution Width CV 13.0 % (11.6-14.6); RBC Distribution Width SD 42.9 fl (35.1-43.9); Red Blood Count 4.41 M/mm3 (4.2-5.4); White Blood Count 6.6 K/mm3 (4.4-11.0)
[2024-12-04 15:57] LABS: AST(SGOT) 22 U/L (<=31); Alanine Aminotransfer ALT/SGPT 17 U/L (<=34); Albumin, Serum 3.9 g/dL (3.4-4.8); Alkaline Phosphatase 60 U/L (35-104); Anion Gap 11 (5-15); BUN 24 mg/dL (4-19); BUN/Creat Ratio 32.2 RATIO (10-20); Calcium,Total 9.3 mg/dL (7.6-11.0); Carbon Dioxide 24.0 mmol/L (21.0-32.0); Chloride 105 mmol/L (98-108); Cholesterol 188 mg/dL (<=200); Free T3 2.4 pg/mL (2.18-3.98); Globulin 2.8 g/dL (2.2-4.2); Glucose 98 mg/dL (70-99); Low Density Lipoprotein Calc. 109 mg/dL; Magnesium 2.0 mg/dL (1.5-2.2); Potassium 4.1 mmol/L (3.3-5.1); Triglycerides 71 mg/dL; Very Low Density Lipoprotein 14 mg/dL (5-40); Vitamin B12 441 pg/mL (180-914); Vitamin D,25 Hydroxy 46.6 ng/mL (30-100); cholesterol:hdl ratio screen 2.83
== END | disposition home or self-care (01) ==
LOC: MTLAB 10:56
PROVIDERS: PCP Internal Medicine; Referring Provider Internal Medicine; Visit Provider Internal Medicine
DX: Z13.220 Encounter for screening for lipoid disorders (principal); M81.0 Age-related osteoporosis without current pathological fracture; E78.5 Hyperlipidemia, unspecified; I65.23 Occlusion and stenosis of bilateral carotid arteries; I10 Essential (primary) hypertension; E03.9 Hypothyroidism, unspecified; G47.33 Obstructive sleep apnea (adult) (pediatric); R73.9 Hyperglycemia, unspecified; E53.8 Deficiency of other specified B group vitamins; E55.9 Vitamin D deficiency, unspecified
CPT/HCPCS: 36415; 80053; 80061; 82306; 82607; 83036; 83735; 84439; 84443; 84481; 85025

== ENCOUNTER 2024-12-07 13:00 | Outpatient (RCR) | payer MEDICARE, OTHER, SELFPAY ==
--- NOTE | 2024-11-09 12:29 | HP.PTEVAL_ITS ---
Patient's Visit Information Visit Information Visit Information: FERNANDO REYNOSO is a 84 year old F referred to Physical Therapy by SUJIT Willis with a diagnosis of B knee contusion. 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 Treat with weight shifting and LE strength ex and postural strength via ex that can be done at home with pics. Work on FW weight shift efficiency and speed and funciton and include HEP. Subjective Subjective: Fell on knees and went to [facility] to eensure TKA(2013) was OK on L knee. R knee is bone on bone. Last faall was October 18 3 weeks ago working out in yard. Landed on knees and bruised them and got up herself. Knees hurt the next day but are still sore to touch and stiffer. 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 will get gel injections and just finished 2nd. next one in 4 months and they help. A number of other falls, one in living room trying to walk b/w footstool and catching foot. Scond fall was taking decorations down and foot hit the box, Live alone in mobile 5 steps with rail, no problem with rail. 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 Works out in yard pulling weeds. Basic ADLs: all I. Has cane and uses it sometimes but no tneeded on firm flat surface. No regular ex. Pain knee: Pain Intensity (Out of 10): 2 Pain Intensity Range: 0 and 8 Comment: in and out of car is worse, R knee laterally Objective Objective: R painful knee. Tends to carry can until cued. Walks with adn without it I. Trasnfeer chair and bed I. Steps reciprocal up without problem needing rail, tends to use L to descend due to pain and needs rail. Steps are short and weight shift is poor. Hands needed to sit to stand. Knee and ankle AROM WFL, R knee limited but fincitional. Hip ROM ext to neutral only otherwise WFL. R knee is valgus and tender lateral joint line, sensation LE WNL to gross light touch B. reflexes 1/3 patella dn achilles B. strength hips 3 abd and ext and flexion with core instability during testing. knee strength quad 3+ and HS 3+, R quad painful at knee. Ankle strength 4- B. Balance/Special Test Scores Functional Gait Assessment Score: 22 % Disability: 26.6700 CATSIB Score (Max score 120 seconds): 120 Lower Extremity Functional Score: 37 Goals Goal 1:: 25/30 FGA to improve balance Goal 2:: I appropriate HP for LE and postural strength adn weight shifts for balance to llimit future probleems. Goal Time Frame: 4-6 Weeks Goal 3:: Exit chair without UE I. Goal Time Frame: 4-6 Weeks Goal 4:: Pt feel 75% better in mobillity and safety with ambulation Goal Time Frame: 4-6 Weeks Rehabilitation Potential Physical Therapy Diagnosis: Limited dbalance and strength leading to fall predisposiition Rehabilitation Potential: Fair Anticipated Interventions Patient/Client Instruction: Educate patient on: Condition and Plan of Care For the Purpose of:: To decrease pain, To improve nutrient delivery to tissue, To improve muscle performance and motor function, To increase tolerance to activity/condition/position, To improve ability of physical actions for home/community/work/leisure and To improve gait and locomotor functions Therapeutic Exercise to Include: Strength training, Postural training, Flexibilty training and Gait and locomotor training For the Purpose of:: To improve nutrient delivery to tissue, To improve muscle performance and motor function, To increase tolerance to activity/condition/position, To improve ability of physical actions for home/community/work/leisure and To improve gait and locomotor functions Text: Thank you for the opportunity to evaluate your patient. For Medicare and Medicare HMO plans, please review the plan of care and approve it. It will need to be FAXED BACK to us at [phone] for Medicare purposes. For Medicare only, by signing this I certify the plan of care. Please let me know if there are questions or concerns regarding this plan of care. Physician Signature: Date:
--- NOTE | 2024-12-07 13:49 | HP.PTDCSUM ---
Discharge Summary D/C summary: It has been my pleasure to treat FERNANDO REYNOSO referred by SUJIT Willis, with the diagnosis of B knee contusion for a total of 9 visit(s). Discharge Date: 12/07/24 Please see the following information for a summary of their discharge status. Subjective Subjective: Balance is much better. Kneee pain is not problem on L and R knee needs replaced. Maybe slightly betteer. Sleep is OK. Activities: wants to move furniture but has b ack problems, also vaccuumed. Has not vaccumed without pain in years. No f/u scheduled.. Will see Carlito and last injection was in August. Pain knee: Pain Intensity (Out of 10): 2 Overall Improvement % Improvement: 70 Objective Objective/Function: walking well today with imprpving balance , not needing cane on firm flat surface. No pain with ambulation today. Goals Goal 1:: FGA to improve balance Goal Progress: Progressing Goal 2:: I appropriate HP for LE and postural strength adn weight shifts for balance to llimit future probleems. Goal Progress: Goal Met Goal 3:: Exit chair without UE I. Goal Progress: Goal Met Goal 4:: Pt feel 75% better in mobillity and safety with ambulation Goal Progress: 70% Plan Plan: d/c to HEP D/C Information Discharge Comments: To continue via HEP d/c sentence: If there are questions or concerns regarding this patient's physical therapy, please feel free to call me at [phone]. Thank you for the referral of this patient. Sincerely, Ayad Rhodes, DPT, OCS, CSCS Balance/Gait/Functional tests Balance/Special Test Scores Functional Gait Assessment Score: 23 % Disability: 23.3400 CATSIB Score (Max score 120 seconds): 120 Lower Extremity Functional Score: 34 Improvement % Improvement: 70
== END 2024-12-07 19:00 | disposition home or self-care (01) ==
LOC: PT 13:00
PROVIDERS: PCP Internal Medicine; Referring Provider Physician Assistant Surgical; Visit Provider Physician Assistant Surgical
DX: S80.02XD Contusion of left knee, subsequent encounter (principal); S80.01XD Contusion of right knee, subsequent encounter
CPT/HCPCS: 97110; 97161; 97164

== ENCOUNTER → 2024-12-14 | Outpatient (CLI) | payer MEDICARE, OTHER, SELFPAY ==
--- NOTE | 2024-12-14 10:40 | CDU_ITS ---
Reason For Study Reason For Study: Carotid stenosis Rt. Velocities/BP Lt. Velocities/BP Prox CCA 102.7/14.2 cm/sec. Prox CCA 122.1 cm/sec. Mid CCA 77.9/15.3 cm/sec. Mid CCA 87.5/7.1 cm/sec. Dist CCA 71/9.5 cm/sec. Dist CCA 75.6/15.5 cm/sec. Prox ICA 48.7/11 cm/sec. Prox ICA 125.3/24.8 cm/sec. Mid ICA 83.1/21.5 cm/sec. Mid ICA 71.6/15.6 cm/sec. Dist ICA 73.6/17.4 cm/sec. Dist ICA 63.5/17.3 cm/sec. Rt. ICA/CCA = 1.07. Lt. ICA/CCA = 1.43. Prox ECA 81.8/4.4 cm/sec. Prox ECA 116.7/5.3 cm/sec. Rt. Vert. 39.6/11.8 cm/sec. Lt. Vert. 47.6/11 cm/sec. Right Extracranial There is intimal thickening but no significant atherosclerotic plaque noted in the right common carotid artery. There is heterogeneous, irregular atherosclerotic plaque noted in the right internal carotid artery. There is intimal thickening but no significant atherosclerotic plaque noted in the right external carotid artery. Antegrade flow is noted in the right vertebral artery. Left Extracranial There is intimal thickening but no significant atherosclerotic plaque noted in the left common carotid artery. There is heterogeneous, irregular atherosclerotic plaque noted in the left internal carotid artery. There is heterogeneous, irregular atherosclerotic plaque noted in the left external carotid artery. Antegrade flow is noted in the left vertebral artery. Procedure Carotid Duplex 44761. This is a Carotid Duplex examination using B-mode, color flow and specral Doppler. Exam performed in department. VL/Carotid Duplex Ultrasound Interpretation Summary Mild (<50%) stenosis right extracranial internal carotid. Mild (<50%) stenosis left extracranial internal carotid. Flow within the vertebral arteries is antegrade bilaterally. Ordering Physician: Meredith Briggs Referring Physician: Meredith Briggs Performed By: Pamela Fay RVT and Student
== END | disposition home or self-care (01) ==
PROVIDERS: PCP Internal Medicine; Referring Provider Internal Medicine; Visit Provider Internal Medicine
DX: I65.23 Occlusion and stenosis of bilateral carotid arteries (principal)
CPT/HCPCS: 93880

== ENCOUNTER → 2025-01-24 | Outpatient (CLI) | payer MEDICARE, OTHER, SELFPAY ==
[2025-01-24 17:26] LABS: Hematocrit 38.7 % (37-47); Hemoglobin 12.5 g/dL (12.0-15.0); Immature Granulocytes Count 0.030 X10^3/uL (0.0-0.0); Mean Corp Hgb Conc 32.3 g/dL (32-36); Mean Corpuscular Volume 90.0 fL (81-99); Mean Platelet Vol. 9.5 fl (6.2-12.0); NRBC Flagged by Analyzer 0 % (0-5); Platelet Count 328 K/mm3 (150-450); RBC Distribution Width CV 12.8 % (11.6-14.6); RBC Distribution Width SD 42.3 fl (35.1-43.9); Red Blood Count 4.30 M/mm3 (4.2-5.4); White Blood Count 8.1 K/mm3 (4.4-11.0)
[2025-01-24 18:09] LABS: AST(SGOT) 21 U/L (<=31); Alanine Aminotransfer ALT/SGPT 16 U/L (<=34); Albumin, Serum 3.8 g/dL (3.4-4.8); Alkaline Phosphatase 69 U/L (35-104); Bilirubin, Direct 0.26 mg/dL (0.00-0.30); Globulin 2.9 g/dL (2.2-4.2)
[2025-01-26 10:08] LABS: QNTFERON TB Mitogen Value > 10.00 IU/mL (.); QNTFERON TB Nil Value 0.03 IU/mL (.); QNTFERON TB1+ Ag Value 0.02 IU/mL (.); QNTFERON TB2+ Ag Value 0.03 IU/mL (.); QNTIFERON TB Positive Criteria Negative (Negative)
== END | disposition home or self-care (01) ==
LOC: MTLAB 16:02
PROVIDERS: PCP Internal Medicine; Referring Provider Dermatology; Visit Provider Dermatology
DX: Z79.899 Other long term (current) drug therapy (principal)
CPT/HCPCS: 36415; 80076; 85025; 86480